=== PATIENT | male | born 1950 | race Caucasian/White ===

== ENCOUNTER 2019-04-01 04:58 | Inpatient (IN) | payer MEDICARE ==
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
[2019-04-01 06:47] VITALS: BMI 27.6
[2019-04-01] MEDS ORDERED: Nitroglycerin 0.4 MG TAB (25 Tab Bottle) PO PRN (06:48)
[2019-04-01 07:11] LABS: Cardiac Risk 2.4 (Less than 4.5)
[2019-04-01 07:15] LABS: Troponin I 0.166 ng/mL (< 0.028)
[2019-04-01] MEDS ORDERED: Pantoprazole 40 MG VIAL IVP SCH (07:45)
[2019-04-01] MEDS ORDERED: hydrALAZINE 20 MG/ML VIAL SLOW IVP PRN (07:52)
[2019-04-01] MEDS ORDERED: HYDROcodone/Acetaminophen 5/325 mg Tablet PO PRN (08:41)
[2019-04-01] MEDS ORDERED: PREDNISONE 20 MG PO SCH (09:00)
[2019-04-01] MEDS ORDERED: Triamcinolone 0.1% Cream 15 GM TUBE TOP SCH (09:00)
[2019-04-01] MEDS ORDERED: Amlodipine 5 MG TAB PO SCH (09:00)
[2019-04-01] MEDS: predniSONE 20 MG TAB PO SCH (09:36)
[2019-04-01] MEDS: Carvedilol 25 MG TAB PO SCH ×2 (09:37→20:28)
[2019-04-01] MEDS: Pantoprazole 40 MG VIAL IVP SCH (09:37)
[2019-04-01 09:56] LABS: Troponin I 0.325 ng/mL (< 0.028)
[2019-04-01 12:35] LABS: Bilirubin Negative (Negative); Blood, Urine Negative (Negative); Clarity Clear (Clear); Glucose, Urine (Dipstick) Normal (Negative); Leukocyte Negative Leu/uL (Negative); Nitrite Negative (Negative); Protein, Urine (Dipstick) Negative (Neg-Trace); Urobilinogen Normal mg/dL (Less than 2)
[2019-04-01] MEDS ORDERED: Ondansetron PF 4 MG/2 ML Vial IVP PRN (12:39)
[2019-04-01] MEDS ORDERED: Ondansetron ODT 4 MG TAB PO PRN (12:39)
[2019-04-01] MEDS ORDERED: Calcium Carbonate 500 MG ChewTAB PO PRN (12:39)
[2019-04-01] MEDS ORDERED: Fentanyl 100 MCG/2 ML VIAL ONE (13:59)
[2019-04-01] MEDS ORDERED: Midazolam HCl 2 mg/2 ml Vial ONE (13:59)
[2019-04-01] MEDS ORDERED: Iopamidol 370 76% 100 ML VIAL ONE (13:59)
[2019-04-01] MEDS ORDERED: TICAGRELOR 90 MG TABLET ONE (14:22)
[2019-04-01] MEDS ORDERED: Heparin 10,000 UNITS/1 ML VIAL ONE (14:22)
[2019-04-01] MEDS ORDERED: Morphine 2 MG/ML SYRINGE SLOW IVP PRN (14:36)
--- NOTE | 2019-04-01 16:00 | CON ---
DATE OF CONSULTATION: 04/01/2019 REASON FOR CONSULTATION: Non-STEMI. HISTORY OF PRESENT ILLNESS: Mr. Bobo is a pleasant 68-year-old white gentleman, who comes to the hospital for heartburn. He has been having a lot of heartburn lately, actually saw a instrumental musician recently, had an endoscopy, was found to have gastric ulcers. He has been on PPIs for this. However, he had an episode of epigastric pain yesterday that did not alleviate with PPI or with any other methods like Tums and the pain radiated to the left arm, so he decided to come in for evaluation. His troponin is in the indeterminate range on my evaluation, however, his symptoms are very concerning for angina, so Cardiology has been consulted. Currently, he is not having any more chest pain or chest burning. PAST MEDICAL HISTORY: 1. History of gastric ulcer. 2. Rash of unknown etiologies, followed by Dermatology. 3. Osteoarthritis. 4. Hypertension. 5. Lower extremity edema. SURGICAL HISTORY: 1. Left hip replacement. 2. Left knee replacement. 3. Penile implant. FAMILY HISTORY: Father with heart failure. SOCIAL HISTORY: Drinks about 3 to 4 beers a day. No tobacco or drugs. REVIEW OF SYSTEMS: A 12-point review of systems was done and was all negative unless stated in the history of present illness. PHYSICAL EXAMINATION: VITAL SIGNS: Temperature 98.7, pulse 68, respiratory rate 16, satting 98% on room air, and blood pressure 142/67. GENERAL: Awake, alert, and oriented x3, in no distress. HEENT: Normocephalic and atraumatic. NECK: Supple. LUNGS: Clear. CARDIOVASCULAR: S1 and S2. No S3 or S4. No murmurs. ABDOMEN: Soft. Positive bowel sounds. EXTREMITIES: No edema. SKIN: Warm and dry. LABORATORY DATA: Laboratory work was reviewed. Chemistry with a troponin of 0.116 and then 0.32. Cholesterol of 117, triglycerides of 67, LDL of 55, and HDL of 49. EKG was reviewed, shows a new left bundle-branch block. ASSESSMENT AND PLAN: 1. Sue-SD-odergbinc myocardial infarction. 2. New onset left bundle-branch block. 3. Gastric ulcers. PLAN: We spoke about further risk stratification with a heart catheterization. We spoke about the risks and benefits of the procedure. Risks included, but not limited to stroke, FL, , bleeding, need for blood transfusion, limb loss, organ loss, need for emergent bypass surgery. The patient verbalized understanding of this and agrees to proceed. Further recommendations per results of coronary angiogram. Job ID: [id number]
[2019-04-01] MEDS: TICAGRELOR 90 MG TABLET PO SCH (20:28)
[2019-04-01] MEDS: Triamcinolone 0.1% Cream 15 GM TUBE TOP SCH (20:33)
[2019-04-01] MEDS ORDERED: Atorvastatin Calcium 40 MG TAB PO SCH ×2 (21:00)
[2019-04-02 05:40] LABS: ALT (SGPT) 17 U/L (8-55); AST (SGOT) 15 U/L (5-34); Albumin 3.1 g/dL (3.4-4.8); Alkaline Phosphatase 45 U/L (40-110); Anion Gap 10 mmol/L (10-20); BUN (Urea Nitrogen) 11 mg/dL (8.4-25.7); Bilirubin, Total 0.3 mg/dL (0.2-1.2); Calc. Creatinine Clearance 113 mL/min (70-130); Calcium 8.3 mg/dL (7.8-10.44); Carbon Dioxide 29 mmol/L (23-31); Chloride 95 mmol/L (98-107); Estimated GFR-MDRD Greater than 90; Globulin 1.9 g/dL (2.4-3.5); Glucose 95 mg/dL (80-115); Potassium 3.8 mmol/L (3.5-5.1); Sodium 130 mmol/L (136-145)
--- NOTE | 2019-04-02 06:02 | PDOC.FM ---
- Subjective Subjective: Feeling well today. Expresses he would like to go home today. Denies chest pain , shortness of breath. Does report some right groin pain at cath site. Otherwise no complaints. - Objective MAR Reviewed: Yes Vital Signs & Weight: Vital Signs (12 hours) Temp Pulse Resp BP Pulse Ox 04/02/19 03:01 98.6 F 70 18 121/65 97 04/01/19 19:30 98.0 F 71 16 141/74 H 98 Weight Weight 82.463 kg I&O: 03/31/19 04/01/19 04/02/19 06:59 06:59 06:59 Intake Total 737 Output Total 775 Balance -38 Result Diagrams: 04/02/19 04:42 Phys Exam - Physical Examination Constitutional: NAD HEENT: moist MMs Neck: supple Respiratory: no wheezing, clear to auscultation bilateral Cardiovascular: RRR, no significant murmur Gastrointestinal: soft, non-tender Musculoskeletal: no edema right groin tenderness over cath site. No redness, edema or eccymosis Neurological: moves all 4 limbs Psychiatric: normal affect, A&O x 3 Skin: no rash, normal turgor Dx/Plan - Plan Plan: NSTEMI s/p stent x1 - On admission: New LBBB. Positive trops. - Cards following, Cath yesterday with stent placement in RCA - Echo 04/01: EF 60-65%, grade I diastolic dysfun. Inf hypokinesis. Septal "bounce" c/w LBBB - Continue High intensity statin, Coreg, RAJESH-I, and Brilinta. HFpEF - Echo 04/02 GERD/Hx of Peptic Ulcer - EGD by Dr Ba 2 wks ago with 2 peptic ulcers. - Continue Protonix Hyponatremia - Beer potomania vs hypervolemia - Improved after IV lasix yesterday, drinks 3-4 beers per day - Up to 130 from 125, continue to monitor Alcohol Use - ASE protocol, drinks 3-4 beers a day CAD - See above HTN - Hold Lisinopril, Amlodipine - Continue carvedilol, Lasix Rash - Continue steroids DVT ppx: SCDs Code Status: Full Addendum - Attending - Attending Attestation Date/Time: 04/02/19 1009 I personally evaluated the patient and discussed the management with Dr. Dick. I agree with the History, Examination, Assessment and Plan documented above with any addition or exceptions noted below. Patient doing well. No further chest pain. Had cath with BMS placed yesterday. Now on OAT. Awaiting further cardiology recs but possible discharge if clearance from them.
[2019-04-02] MEDS ORDERED: Aspirin Chewable 81 MG TAB PO SCH (09:00)
[2019-04-02] MEDS ORDERED: Lisinopril 5 MG TAB PO SCH (09:00)
[2019-04-02] MEDS: TICAGRELOR 90 MG TABLET PO SCH (09:50)
[2019-04-02] MEDS: predniSONE 20 MG TAB PO SCH (09:50)
[2019-04-02] MEDS: Carvedilol 25 MG TAB PO SCH (09:50)
[2019-04-02] MEDS: Pantoprazole 40 MG VIAL IVP SCH (09:51)
[2019-04-02] MEDS: Triamcinolone 0.1% Cream 15 GM TUBE TOP SCH (09:54)
[2019-04-02 16:44] VITALS: TEMP 98.6
--- NOTE | 2019-04-02 19:01 | PDOC.CPN ---
- Subjective Date: 04/02/19 Time: 18:57 Interval history: He is doing very well. No more chest pain. - Review of Systems General: denies: fever/chills, weight/appetite/sleep changes, night sweats, fatigue Respiratory: denies: cough, congestion, shortness of breath, exercise intolerance Cardiovascular: denies: chest pain, palpitation, edema, paroxysmal nocturnal dyspnea, orthopnea Gastrointestinal: denies: nausea, vomiting, diarrhea, constipation, abd pain, GI bleeding Musculoskeletal: denies: pain, tenderness, stiffness, swelling, arthritis/ arthralgias Neurological: denies: numbness, syncope, seizure, weakness - Objective Allergies/Adverse Reactions: Allergies Allergy/AdvReac Type Severity Reaction Status Date / Time No Known Allergies Allergy Verified 04/01/19 07:56 Vital Signs & Weight: Vital Signs Temp Pulse Pulse Resp BP BP BP 04/02/19 15:35 98.6 F 74 16 04/02/19 12:05 04/02/19 11:05 04/02/19 10:08 78 106/70 65/43 L 90/55 L 04/02/19 09:50 75 04/02/19 07:50 98.1 F 75 16 BP Pulse Ox Pulse Ox 04/02/19 15:35 133/69 99 04/02/19 12:05 100/68 04/02/19 11:05 70/43 L 04/02/19 10:08 98 04/02/19 09:50 04/02/19 07:50 109/56 L 99 Weight 181 lb 12.8 oz - Physical Exam General: alert & oriented x3 HEENT: mucus membranes moist Neck: supple neck Cardiac: regular rate and rhythm Lungs: clear to auscultation Neuro: grossly intact Abdomen: active bowel sounds Extremities: no edema Skin: clear Musculoskeletal: no pain - Labs Result Diagrams: 04/02/19 04:42 Troponin/CKMB Troponin I 0.325 ng/mL (< 0.028) H* 04/01/19 09:21 - Telemetry Sinus rhythms and dysrhythmias: sinus rhythm - Assessment/Plan Assessment/Plan: 1. NSTEMI 2. LBBB 3. Gastric ulcers. PLAN: - S/P BMS to RCA. Doing well. - May discharge home. - Follow up in 4 weeks. - Brilinta and aspirin for a month and then aspirin and plavix.
[2019-04-02 20:00] VITALS: BP 111/64
[2019-04-02] MEDS ORDERED: Atorvastatin Calcium 40 MG TAB PO SCH (21:00)
--- NOTE | 2019-04-05 00:09 | EKG ---
Test Reason : ON ARRIVAL Blood Pressure : / mmHG Vent. Rate : 070 BPM Atrial Rate : 070 BPM P-R Int : 178 ms QRS Dur : 140 ms QT Int : 444 ms P-R-T Axes : 045 -01 068 degrees QTc Int : 479 ms Normal sinus rhythm Left bundle branch block Abnormal ECG No previous ECGs available Confirmed by Polly GRECO ([id number]) on 04/05/2019 12:08:45 AM Referred By: PRITI Confirmed By:Polly GRECO
--- NOTE | 2019-04-05 00:12 | EKG ---
Test Reason : Blood Pressure : / mmHG Vent. Rate : 072 BPM Atrial Rate : 072 BPM P-R Int : 164 ms QRS Dur : 136 ms QT Int : 442 ms P-R-T Axes : 058 009 103 degrees QTc Int : 483 ms Normal sinus rhythm Left bundle branch block Abnormal ECG No previous ECGs available Confirmed by Polly GRECO ([id number]) on 04/05/2019 12:12:34 AM Referred By: CARRIE Confirmed By:Polly GRECO
--- NOTE | 2019-04-05 11:06 | DIS ---
DATE OF ADMISSION: 04/01/2019 DATE OF DISCHARGE: 04/02/2019 RESIDENT: Tammy Dick, PGY-2. ADMITTING ATTENDING: Mohsen Peña MD DISCHARGE ATTENDING: Mohsen Peña MD CONSULT: Cardiology. PROCEDURES: 1. Chest x-ray on 04/01/2019, stable chronic changes. No pneumonia, edema, or pleural effusion. 2. petroleum refinery laborer, severe mid RCA disease, status post PCI to mid RCA with 2.5 x 16 mm bare metal stent with good results. Severe D1 and D2 ostial lesions, very small 1 mm vessels. 3. Echocardiogram on 04/01/2019, EF 60% to 65%. Grade 1/3 diastolic dysfunction. Inferior hypokinesis. Septal "bounce" consistent with left bundle branch block. Mild mitral and tricuspid regurgitation. Aortic valve sclerosis, but opens well. PRIMARY DIAGNOSES: 1. [id number] myocardial infarction, status post stent x1. 2. Heart failure with preserved ejection fraction. SECONDARY DIAGNOSES: 1. Gastroesophageal reflux disease. 2. History of peptic ulcer. 3. Hyponatremia. 4. Alcohol abuse. 5. Coronary artery disease. 6. Hypertension. 7. Rash. DISCHARGE MEDICATIONS: 1. Aspirin 81 mg daily. 2. Atorvastatin 80 mg at bedtime. 3. Carvedilol 25 mg b.i.d. 4. [place] 5/325 mg q.6 hours p.r.n. 5. Lisinopril 5 mg daily. 6. Prednisone 20 mg daily. 7. Brilinta 90 mg b.i.d. 8. Triamcinolone cream topical b.i.d. 9. Omeprazole 20 mg daily. HISTORY OF PRESENT ILLNESS/HOSPITAL COURSE: Mr. Rivera is a 68-year-old male with past medical history of hypertension, stomach ulcer, who presented to the ED with chest pain that had been going on for about 1 week and initially thought it was due to acid reflux because it did alleviate with Tums; however, he woke in the middle of the night, took Tums and the pain began to radiate down his left arm. He was brought into the emergency department at [facility]. His initial troponin was negative. EKG revealed left bundle branch block with no prior EKG for comparison, this is thought to be new. Denied any associated symptoms of nausea, vomiting, diaphoresis. Has never been seen by Cardiology. He was diagnosed with a stomach ulcer about 2 weeks prior to admission. He had EGD with Dr. Lipscomb and was started on omeprazole daily. He also recently broke out a rash and saw an Candy Vendor who prescribed prednisone and stopped the patient's lisinopril and amlodipine. In the ER, he was given therapeutic Lovenox, morphine, and Protonix with improvement in his pain. Initial labs noted for hemoglobin 11.1 and sodium 125. BNP 163.1. Initial troponin 0, 0.166, 0.325. His cholesterol panel was fairly normal. In regard to his hyponatremia, urine studies were obtained, it was likely due to hypervolemia. He was given Lasix in the ED and on the day of discharge, sodium improved to 130. DISPOSITION: Stable. DISCHARGE INSTRUCTIONS: 1. Location: Home. 2. Diet: Heart healthy. 3. Activity: Cardiopulmonary restrictions. 4. Follow up with Dr. Bragg within 1 month and PCP within 7 days. Job ID: [id number] [facility]
--- NOTE | 2019-04-05 22:06 | PQF ---
ALTAGRACIA HIDALGO JASON MD [id number] [facility]-243 [id number] CLINICAL DOCUMENTATION CLARIFICATION FORM: POST DISCHARGE Addendum to original discharge summary date: ____ Late entry note date: 04/08/2019 DATE:04/05/2019 ATTN:REJI FIGUEROA MD Please exercise your independent, professional judgment in responding to the clarification form. Clinical indicators are provided on the bottom of this form for your review Please check appropriate box(s): [ ] Acute diastolic heart failure [ ] Acute on chronic diastolic heart failure [ ] Chronic diastolic heart failure [ ] Other diagnosis [ X ] Unable to determine if acute or chronic In addition, please specify: Present on Admission (POA): [X ] Yes [ ] No [ ] Unable to determine For continuity of documentation, please document condition throughout progress notes and discharge summary. Thank You. CLINICAL INDICATORS - SIGNS / SYMPTOMS / LABS Pitting edema b/l LE-Documented in family medicine H&P on 04/01 by Armando Valadez DO [id number] in family medicine H&P on 04/01 by Armando Valadez DO LBBB-Documented in family medicine H&P on 04/01 by Armando Valadez DO Echocardiogram on 04/01/2019 EF 60% to 65%. Grade 1/3 diastolic dysfunction- Documented in discharge summary on 04/02 by Kapil Munoz MD Non ST elevation myocardial infarction, status post stent x 1-Documented in discharge summary on 04/02 by Kapil Munoz MD Heart failure with preserved ejection fraction-Documented in discharge summary on 04/02 by Kapil Munoz MD RISKS: HTN-Documented in family medicine H&P on 04/01 by Armando Valadez DO CAD-Documented in discharge summary on 04/02 by Kapil Munoz MD Non ST elevation myocardial infarction, status post stent x 1-Documented in discharge summary on 04/02 by Kapil uMnoz MD TREATMENTS: IV Lasix -Documented in family medicine PN on 04/02 by Kapil Munoz MD Continue carvedilol, Lasix-Documented in family medicine PN on 04/02 by Kapil Munoz MD 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 All Rights Reserved [email or web address]
== END 2019-04-02 18:20 | disposition home or self-care (01) | DRG 249 ==
LOC: ERS 04:58 → OBSVTOIN 05:18 → 2SW 05:18
PROVIDERS: ADMIT Emergency Medicine; ATTEND Emergency Medicine
PROC: 4A023N7 Measurement of Cardiac Sampling and Pressure, Left Heart, Percutaneous Approach (ICD-10-PCS; principal; 2019-04-01)
PROC: 02703DZ Dilation of Coronary Artery, One Artery with Intraluminal Device, Percutaneous Approach (ICD-10-PCS; 2019-04-01)
PROC: B2111ZZ Fluoroscopy of Multiple Coronary Arteries using Low Osmolar Contrast (ICD-10-PCS; 2019-04-01)
DX: I21.4 Non-ST elevation (NSTEMI) myocardial infarction (principal); E87.1 Hypo-osmolality and hyponatremia; I50.30 Unspecified diastolic (congestive) heart failure; I44.7 Left bundle-branch block, unspecified; K21.9 Gastro-esophageal reflux disease without esophagitis; K25.9 Gastric ulcer, unspecified as acute or chronic, without hemorrhage or perforation; R60.0 Localized edema; R21 Rash and other nonspecific skin eruption; D64.9 Anemia, unspecified; Z96.642 Presence of left artificial hip joint; Z96.652 Presence of left artificial knee joint; I25.10 Atherosclerotic heart disease of native coronary artery without angina pectoris; I11.0 Hypertensive heart disease with heart failure; Z82.49 Family history of ischemic heart disease and other diseases of the circulatory system; Z72.89 Other problems related to lifestyle
CPT/HCPCS: 36415; 80053; 80061; 81003; 82533; 83930; 83935; 84300; 85347; 92928; 93005; 93010; 93306; 93454; 93798; 99152; 99285; C1760; C1769; C1876; C1887; C9113; J1644; J2250; J3010; J7512; Q9967

== ENCOUNTER 2019-04-08 17:00 | Inpatient (IN) | payer MEDICARE ==
[2019-04-08] MEDS ORDERED: Acetaminophen 325 MG TAB PO PRN (18:32)
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
[2019-04-08] MEDS ORDERED: Morphine 4 MG/ML VIAL ONE (18:56)
[2019-04-08] MEDS ORDERED: Morphine 4 MG/ML VIAL SLOW IVP PRN (18:57)
[2019-04-08 19:10] LABS: Troponin I 0.035 ng/mL (< 0.028)
[2019-04-08 19:15] LABS: Hemoglobin 7.2 g/dL (14.0-18.0)
--- NOTE | 2019-04-08 19:55 | CON ---
DATE OF CONSULTATION: 04/08/2019 REASON FOR CONSULTATION: Pseudoaneurysm and chest pain. HISTORY OF PRESENT ILLNESS: Mr. Rivera is a very pleasant 68-year-old white gentleman, very well known to myself, who comes to the hospital for anemia, new onset, and pseudoaneurysm. He had a heart catheterization last week secondary to [id number] [place]. He presented with symptoms concerning for angina, so he was taken to the catheterization lab. Right femoral access was obtained and he underwent stent placement to the right coronary artery with a bare-metal stent as he had a history of gastric ulcer in the past. He went home. Manual pressure was held in the right femoral arteriotomy site and everything was well. He came in today as he had a followup with GI and was found to have a low hemoglobin in the 7 range and he was having some dull left-sided chest pain, so he was referred to the ER. He went to the [facility] and he was found to have a pseudoaneurysm and low hemoglobin and was transferred over for further evaluation and care. Currently, he denies any chest pain, tightness, or pressure. No shortness of breath. His right groin is very tender to palpation and he has some edema in the right leg. PAST MEDICAL HISTORY: 1. Gastric ulcer. 2. Coronary artery disease, status post bare-metal stent to the RCA. 3. Osteoarthritis. 4. Rash of unknown etiology is followed by Dermatology. 5. Hypertension. 6. Lower extremity edema. PAST SURGICAL HISTORY: 1. Left hip replacement. 2. Left knee replacement. 3. Penile implant. 4. Left heart catheterization with stenting to the right with a bare-metal stent. FAMILY HISTORY: Father with heart failure. SOCIAL HISTORY: 3 to 4 beers a day. No tobacco or drugs. OUTPATIENT MEDICATIONS: 1. Prednisone. 2. Triamcinolone. 3. Brilinta 90 mg b.i.d. 4. Omeprazole 20 mg a day. 5. Lisinopril 5 mg a day. 6. Tama p.r.n. 7. Carvedilol 25 mg p.o. b.i.d. 8. Atorvastatin 80 mg at bedtime. 9. Aspirin 81 a day. ALLERGIES: NO KNOWN DRUG ALLERGIES. REVIEW OF SYSTEMS: A 12-point review of systems was done and was all negative unless stated in the history of present illness. PHYSICAL EXAMINATION: VITAL SIGNS: Temperature 98.0, pulse 67, respiratory rate 18, saturating 99% on room air, blood pressure 155/82. GENERAL: Awake, alert, and oriented x3. No distress. HEENT: Normocephalic and atraumatic. NECK: Supple. LUNGS: Clear. CARDIOVASCULAR: S1 and S2. No S3 or S4. No murmurs. ABDOMEN: Soft. Positive bowel sounds. EXTREMITIES: No edema. SKIN: Warm and dry. Right groin has a small amount of ecchymosis and bruising. There is a palpable mass, minimally pulsatile, but tender to palpation. LABORATORY AND DIAGNOSTIC DATA: Ultrasound at the outside facility showed pseudoaneurysm. Most recent blood work is not available to me at this time. However, his hemoglobin on discharge was at around 11 and apparently it has been down to 7. Echocardiogram before discharge last week showed an EF of 60% to 65% with grade 1 diastolic dysfunction and inferior hypokinesis. ASSESSMENT: 1. Pseudoaneurysm. 2. Anemia, likely blood loss. 3. Chest pain. PLAN: 1. EKG shows no evidence of ischemia currently. We will trend troponins, make sure these are not uptrending. 2. We attempted ultrasound-guided closure of the pseudoaneurysm. However, it was quite large and we were unable to occlude the flow with ultrasound-guided manual pressure. At this point, the best option would be surgical consultation for surgical excision of the pseudoaneurysm. We will consult CT and Vascular Surgery for this. Hopefully, this will be done tomorrow. 3. We will continue to monitor anemia. If it drops any further, we will give blood transfusions. 4. Continue to trend troponins and repeat EKG. Thank you for letting us to participate in the care of your patient. We will follow. Job ID: [id number]
[2019-04-08] MEDS ORDERED: predniSONE 20 MG TAB PO SCH (20:15)
[2019-04-08] MEDS: Atorvastatin Calcium 40 MG TAB PO SCH ×2 (20:46→20:50)
[2019-04-08] MEDS: Carvedilol 25 MG TAB PO SCH (20:48)
[2019-04-08 20:52] VITALS: BMI 26.9
[2019-04-08] MEDS ORDERED: Triamcinolone 0.1% Cream 15 GM TUBE TOP SCH (21:00)
[2019-04-08 21:47] LABS: Troponin I 0.072 ng/mL (< 0.028)
[2019-04-08] MEDS: HYDROcodone/Acetaminophen 5/325 mg Tablet PO PRN (21:54)
[2019-04-09 01:00] LABS: Troponin I 0.097 ng/mL (< 0.028)
[2019-04-09 05:39] LABS: Anion Gap 11 mmol/L (10-20); BUN (Urea Nitrogen) 11 mg/dL (8.4-25.7); Calc. Creatinine Clearance 124 mL/min (70-130); Calcium 7.8 mg/dL (7.8-10.44); Carbon Dioxide 24 mmol/L (23-31); Chloride 99 mmol/L (98-107); Estimated GFR-MDRD Greater than 90; Glucose 111 mg/dL (80-115); Potassium 4.5 mmol/L (3.5-5.1); Sodium 129 mmol/L (136-145)
[2019-04-09 05:40] LABS: Band 1 % (5-11); Hemoglobin 8.9 g/dL (14.0-18.0); Lymphocytes 9 % (21-51); MDiff Complete? YES; Mean Corpuscular Hemoglobin 31.2 pg (27.0-31.0); Mean Corpuscular Volume 94.8 fL (78.0-98.0); Mean Platelet Volume 6.1 fL (7.4-10.4); Monocytes 3 % (0-10); Neutrophil 87 % (42-75); Platelet Count 255 thou/uL (130-400); Platelet Morphology Comment Appears Adequate; RBC Distribution Width 13.6 % (11.5-14.5); Red Blood Cell (RBC) Count 2.85 mill/uL (4.70-6.10); White Blood Cell (WBC) Count 6.7 thou/uL (4.8-10.8)
[2019-04-09 05:46] LABS: Troponin I 0.085 ng/mL (< 0.028)
[2019-04-09] MEDS: Carvedilol 25 MG TAB PO SCH ×2 (06:01→20:21)
[2019-04-09] MEDS: HYDROcodone/Acetaminophen 5/325 mg Tablet PO PRN ×2 (06:01→20:26)
--- NOTE | 2019-04-09 06:54 | PDOC.FM ---
- Subjective Subjective: Chest pain overnight resolved with transfusions. Denies shortness of breath, weakness, dizziness. Continues to have right groin pain, unable to move right leg very much. Reports CV surg came by this morning and are planning for surgery around 11am. - Objective MAR Reviewed: Yes Vital Signs & Weight: Vital Signs (12 hours) Temp Pulse Pulse Resp BP BP Pulse Ox 04/09/19 04:50 98.2 F 67 20 138/75 98 04/09/19 02:46 98.3 F 67 20 121/71 98 04/09/19 02:31 98.4 F 66 20 132/69 98 04/09/19 02:00 98.1 F 71 20 118/68 97 04/08/19 23:50 98.2 F 65 20 105/63 97 04/08/19 23:30 97.9 F 67 20 100/58 L 98 04/08/19 20:00 97.6 F 70 20 130/72 99 Weight Weight 80.286 kg I&O: 04/07/19 04/08/19 04/09/19 06:59 06:59 06:59 Intake Total 1060 Output Total 1150 Balance -90 Result Diagrams: 04/09/19 04:39 04/09/19 04:39 Phys Exam - Physical Examination Constitutional: NAD HEENT: moist MMs Neck: supple Respiratory: no wheezing, clear to auscultation bilateral Cardiovascular: RRR, no significant murmur Gastrointestinal: soft, non-tender Musculoskeletal: no edema Neurological: moves all 4 limbs Psychiatric: normal affect, A&O x 3 Deviation from normal: Extensive right posterior leg ecchymosis to popliteal fossa Dx/Plan - Plan Plan: R Femoral Pseudoaneurysm s/p heart cath w/ RCA stent placement - Dr. Bragg and CV surgery consulted. Currently NPO for surgery. - s/p 2U pRBCs Acute blood loss anemia 2/2 pseudoaneurysm - s/p 2U pRBCs - Hgb this AM 8.9 Elevated Troponin - likely result of recent NSTEMI and stent placement. Trops trended down CAD s/p stent - Continue Brilinta Code Status: Full Addendum - Attending - Attending Attestation Date/Time: 04/09/19 1024 I personally evaluated the patient and discussed the management with Dr. Dick I agree with the History, Examination, Assessment and Plan documented above with any addition or exceptions noted below. Awaiting surgical correction of pseudoaneurysm. H&H improved with 2 units but may need additional transfusion post operatively. Goal hemoglobin >9 due to CAD. LOS pending CVS recommendations.
[2019-04-09] MEDS ORDERED: TICAGRELOR 90 MG TABLET PO SCH ×2 (07:45→09:00)
[2019-04-09] MEDS: predniSONE 20 MG TAB PO SCH (08:28)
[2019-04-09] MEDS: Lisinopril 5 MG TAB PO SCH (08:28)
[2019-04-09] MEDS ORDERED: Protamine Sulfate 50 MG/5 ML VIAL ONE (09:27)
[2019-04-09] MEDS ORDERED: Heparin 5,000 UNITS/ML VIAL ONE (09:27)
[2019-04-09] MEDS ORDERED: Fentanyl 100 MCG/2 ML VIAL ONE (09:37)
[2019-04-09] MEDS ORDERED: Ondansetron PF 4 MG/2 ML Vial ONE (10:16)
[2019-04-09] MEDS ORDERED: PROPOFOL 200 MG/20 ML VIAL ONE (10:16)
[2019-04-09] MEDS ORDERED: Dexamethasone 20 MG/5 ML VIAL ONE (10:16)
[2019-04-09] MEDS ORDERED: Glycopyrrolate 0.2 MG/ML 5 ML SYRINGE ONE (10:16)
[2019-04-09] MEDS ORDERED: Ketorolac Tromethamine 30 MG/ML VIAL ONE (10:16)
[2019-04-09] MEDS ORDERED: Rocuronium Bromide 10 MG/ML (10ML VIAL) ONE (10:16)
[2019-04-09] MEDS ORDERED: Lidocaine 1% PF 5 ML VIAL ONE (10:16)
[2019-04-09] MEDS ORDERED: Heparin 10,000 UNITS/1 ML VIAL ONE (12:13)
[2019-04-09] MEDS ORDERED: Ondansetron HCl/PF 4 MG/2 ML Vial IVP PRN (12:28)
--- NOTE | 2019-04-09 13:48 | OP ---
DATE OF PROCEDURE: 04/09/2019 PROCEDURE PERFORMED: Repair of right femoral pseudoaneurysm. PREOPERATIVE DIAGNOSIS: Right femoral pseudoaneurysm, status post cardiac catheterization with percutaneous coronary intervention. POSTOPERATIVE DIAGNOSIS: Right femoral pseudoaneurysm, status post cardiac catheterization with percutaneous coronary intervention. ANESTHESIA: General endotracheal anesthesia. INDICATIONS: The patient is a 68-year-old man, who about a week ago underwent bare-metal stenting of his right coronary artery following a non-ST elevation myocardial infarction and was placed on Brilinta for antiplatelet therapy. He presented yesterday with vague chest pain and anemia. He was found to have significant bruising in his groin with a vague pulsatile mass that was consistent with a pseudoaneurysm on ultrasonography. Attempts at ultrasonographically directed compressions were unsuccessful in sealing the pseudoaneurysm and he is now taken to the operating room after having been transfused for repair of his femoral artery. FINDINGS: A clot tracking down to the knee were little bit beyond a discrete clean puncture hole in the anterior surface. The distal common femoral artery was repaired with a pursestring suture. NARRATIVE REPORT: After informed consent was obtained, the patient was taken to the operating room and placed in the supine position on the operating table. After the induction of general anesthesia, his abdomen and right groin and thigh were prepped and draped in sterile fashion. An oblique incision was made about a fingerbreadth below and parallel to the right groin crease. It was carried through the subcutaneous tissue with the electrocautery. The axis of dissection was shifted to that of the vasculature over the palpable pulse distally in the wound. Clot and inflammatory tissue were encountered. The superficial femoral artery was identified and in the course of proximal dissection, bleeding from the puncture site was encountered when the pseudoaneurysm cavity was entered. This was controlled with direct pressure and the common femoral artery and its bifurcation were dissected out. The superficial femoral artery and then the common femoral artery were looped with vessel loops with those vessels controlled in that manner. Pressure on the puncture site was released to allow for completion of the dissection to allow for clamping of the common femoral on either side of the puncture site. A 5-0 Prolene pursestring suture was used to control that and the vascular controls were released. There was no additional bleeding noted, although one side branch from the common femoral required ligation. Clot was evacuated from the tract, which was then copiously irrigated. A 24-Marshallese bulb suction drain was placed into the tract that went down to about the knee. It was brought out through a separate incision anterolaterally and secured to the skin with suture. The wound was then closed in deep and superficial layers of 2-0 Vicryl and then closed with a 4-0 Vicryl subcuticular suture and Dermabond. The wound was dressed. The patient was awakened and extubated in the operating room and taken to the recovery area in stable condition. Job ID: [id number]
[2019-04-09] MEDS ORDERED: HYDROcodone/Acetaminophen 5/325 mg Tablet PO PRN (14:17)
[2019-04-09] MEDS ORDERED: Morphine 2 MG/ML SYRINGE SLOW IVP PRN (15:46)
--- NOTE | 2019-04-09 15:55 | PDOC.CPN ---
- Subjective Date: 04/09/19 Time: 15:53 Interval history: He had excision of his pseudoaneurysm by Dr. Brock. His chest pain improved with blood transfusion. Only complaint is pain around surgical site. Drain in place. - Review of Systems General: denies: fever/chills, weight/appetite/sleep changes, night sweats, fatigue Respiratory: denies: cough, congestion, shortness of breath, exercise intolerance Cardiovascular: denies: chest pain, palpitation, edema, paroxysmal nocturnal dyspnea, orthopnea Gastrointestinal: denies: nausea, vomiting, diarrhea, constipation, abd pain, GI bleeding Musculoskeletal: reports: pain. denies: tenderness, stiffness, swelling, arthritis/arthralgias Neurological: denies: numbness, syncope, seizure, weakness - Objective Allergies/Adverse Reactions: Allergies Allergy/AdvReac Type Severity Reaction Status Date / Time lactase [From Dairy Aid] Allergy Verified 04/08/19 22:12 Visit Medications: Current Medications Acetaminophen (Tylenol) 650 mg PO Q4H PRN PRN Reason: Headache/Fever/Mild Pain (1-3) Hydrocodone Bitart/Acetaminophen ([place] 5/325) 1 tab PO Q6HR PRN PRN Reason: Moderate Pain (4-6) Last Admin: 04/09/19 06:01 Dose: 1 tab Hydrocodone Bitart/Acetaminophen ([place] 5/325) 2 tab PO Q4H PRN PRN Reason: Severe Pain (7-10) Atorvastatin Calcium (Lipitor) 80 mg PO HS [facility] Last Admin: 04/08/19 20:50 Dose: 80 mg Carvedilol (Coreg) 25 mg PO BID [facility] Last Admin: 04/09/19 06:01 Dose: 25 mg Lisinopril (Zestril) 5 mg PO DAILY [facility] Last Admin: 04/09/19 08:28 Dose: 5 mg Morphine Sulfate (Morphine) 2 mg SLOW IVP Q4H PRN PRN Reason: Breakthrough Pain Pantoprazole Sodium (Protonix) 40 mg PO DAILY [facility] Last Admin: 04/09/19 08:28 Dose: 40 mg Prednisone (Prednisone) 20 mg PO DAILY [facility] Last Admin: 04/09/19 08:28 Dose: 20 mg Ticagrelor (Brilinta) 90 mg PO BID [facility] Vital Signs & Weight: Vital Signs Temp Pulse Pulse Resp BP BP BP 04/09/19 13:50 97.8 F 53 L 18 166/80 H 04/09/19 08:28 71 148/82 H 04/09/19 08:17 98.4 F 71 16 148/82 H 04/09/19 04:50 98.2 F 67 20 138/75 Pulse Ox 04/09/19 13:50 99 04/09/19 08:28 04/09/19 08:17 97 04/09/19 04:50 98 Weight 177 lb - Physical Exam General: alert & oriented x3 HEENT: mucus membranes moist Neck: supple neck Cardiac: regular rate and rhythm Lungs: clear to auscultation Neuro: grossly intact Abdomen: active bowel sounds Extremities: no edema Skin: clear Musculoskeletal: normal range of motion - Labs Result Diagrams: 04/09/19 04:39 04/09/19 04:39 Troponin/CKMB Troponin I 0.085 ng/mL (< 0.028) H 04/09/19 04:39 - Assessment/Plan Assessment/Plan: 1. Right groin pseudoaneurysm. 2. CAD, S/P PCI to RCA with BMS a week ago. 3. Blood loss anemia, s/p transfusion. 4. Hx of gastric ulcer. 5. Chronic LE edema. PLAN: - Pain control. - Continue to monitor H&H. - Brilinta stopped, continue Plavix and aspirin. - CV stable, no ACS.
[2019-04-09 18:05] LABS: #Basophils 0.1 thou/uL (0.0-0.2); #Lymphocytes 0.2 thou/uL (1.20-3.40); #Monocytes 0.2 thou/uL (0.11-0.59); #Neutrophils 11.9 thou/uL (1.40-6.50); %Basophils 0.9 % (0.0-1.0); %Eosinophils 0.2 % (0.0-10.0); %Lymphocytes 1.8 % (21.0-51.0); %Monocytes 1.5 % (0.0-10.0); %Neutrophils 95.6 % (42.0-75.0); Hemoglobin 9.2 g/dL (14.0-18.0); Mean Corpuscular HGB CONC 34.6 g/dL (32.0-36.0); Mean Corpuscular Hemoglobin 32.8 pg (27.0-31.0); Mean Corpuscular Volume 94.6 fL (78.0-98.0); Mean Platelet Volume 5.9 fL (7.4-10.4); Platelet Count 279 thou/uL (130-400); RBC Distribution Width 13.9 % (11.5-14.5); White Blood Cell (WBC) Count 12.4 thou/uL (4.8-10.8)
[2019-04-09] MEDS: Atorvastatin Calcium 40 MG TAB PO SCH (20:21)
[2019-04-09] MEDS: TICAGRELOR 90 MG TABLET PO SCH (20:21)
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
--- NOTE | 2019-04-10 06:08 | PDOC.FM ---
- Subjective Subjective: No overnight events. Eager to get home. Reports he is able to now move his leg after surgery. Pain well controlled. - Objective MAR Reviewed: Yes Vital Signs & Weight: Vital Signs (12 hours) Temp Pulse Resp BP Pulse Ox 04/09/19 23:50 75 04/09/19 20:00 98.0 F 20 L 20 133/74 97 Weight Weight 80.286 kg I&O: 04/08/19 04/09/19 04/10/19 06:59 06:59 06:59 Intake Total 1060 960 Output Total 1150 665 Balance -90 295 Result Diagrams: 04/10/19 07:09 04/10/19 07:09 Phys Exam - Physical Examination Constitutional: NAD HEENT: moist MMs Neck: supple Respiratory: no wheezing, clear to auscultation bilateral Cardiovascular: RRR, no significant murmur Gastrointestinal: soft, non-tender Musculoskeletal: no edema Neurological: moves all 4 limbs Psychiatric: normal affect, A&O x 3 Deviation from normal: right leg with ecchymosis, ARGELIA drain with serosanguineous fluid Dx/Plan - Plan Plan: R Femoral Pseudoaneurysm after heart cath s/p repair on 04/10 - Dr. Bragg and CV surgery following - Plan to discharge home today with follow up on Friday Acute blood loss anemia 2/2 pseudoaneurysm - s/p 2U pRBCs - CBC pending this AM Leukocytosis - likely stress reaction from surgery, CBC pending. Elevated Troponin - likely result of recent NSTEMI and stent placement. Trops trended down CAD s/p RCA stent placement - Continue Brilinta and ASA Code Status: Full Addendum - Attending - Attending Attestation Date/Time: 04/10/19 5081 I personally evaluated the patient and discussed the management with Dr. Dick. I agree with the History, Examination, Assessment and Plan documented above with any addition or exceptions noted below. D/c if [facility] approves.
[2019-04-10 07:25] VITALS: BP 122/74; TEMP 98.5
[2019-04-10 07:31] LABS: Hemoglobin 8.1 g/dL (14.0-18.0); Mean Corpuscular HGB CONC 34.8 g/dL (32.0-36.0); Mean Corpuscular Hemoglobin 33.1 pg (27.0-31.0); Mean Corpuscular Volume 95.1 fL (78.0-98.0); Mean Platelet Volume 6.1 fL (7.4-10.4); Platelet Count 280 thou/uL (130-400); Red Blood Cell (RBC) Count 2.45 mill/uL (4.70-6.10); White Blood Cell (WBC) Count 8.6 thou/uL (4.8-10.8)
[2019-04-10 07:47] LABS: Anion Gap 12 mmol/L (10-20); BUN (Urea Nitrogen) 19 mg/dL (8.4-25.7); Calc. Creatinine Clearance 110 mL/min (70-130); Calcium 7.7 mg/dL (7.8-10.44); Carbon Dioxide 23 mmol/L (23-31); Chloride 98 mmol/L (98-107); Estimated GFR-MDRD Greater than 90; Glucose 109 mg/dL (80-115); Potassium 4.4 mmol/L (3.5-5.1); Sodium 129 mmol/L (136-145)
[2019-04-10] MEDS: Lisinopril 5 MG TAB PO SCH (08:05)
[2019-04-10] MEDS: TICAGRELOR 90 MG TABLET PO SCH (08:05)
[2019-04-10] MEDS: HYDROcodone/Acetaminophen 5/325 mg Tablet PO PRN (08:06)
[2019-04-10] MEDS: Carvedilol 25 MG TAB PO SCH (08:07)
[2019-04-10] MEDS: predniSONE 20 MG TAB PO SCH (08:07)
--- NOTE | 2019-04-10 10:18 | PDOC.CPN ---
- Subjective Date: 04/10/19 Time: 10:17 Interval history: Doing well. No complaints - Objective Allergies/Adverse Reactions: Allergies Allergy/AdvReac Type Severity Reaction Status Date / Time lactase [From Dairy Aid] Allergy Verified 04/08/19 22:12 Visit Medications: Current Medications Acetaminophen (Tylenol) 650 mg PO Q4H PRN PRN Reason: Headache/Fever/Mild Pain (1-3) Hydrocodone Bitart/Acetaminophen (Tyler 5/325) 1 tab PO Q6HR PRN PRN Reason: Moderate Pain (4-6) Last Admin: 04/10/19 08:06 Dose: 1 tab Hydrocodone Bitart/Acetaminophen (Tyler 5/325) 2 tab PO Q4H PRN PRN Reason: Severe Pain (7-10) Atorvastatin Calcium (Lipitor) 80 mg PO HS [facility] Last Admin: 04/09/19 20:21 Dose: 80 mg Carvedilol (Coreg) 25 mg PO BID [facility] Last Admin: 04/10/19 08:07 Dose: 25 mg Lisinopril (Zestril) 5 mg PO DAILY [facility] Last Admin: 04/10/19 08:05 Dose: 5 mg Morphine Sulfate (Morphine) 2 mg SLOW IVP Q4H PRN PRN Reason: Breakthrough Pain Pantoprazole Sodium (Protonix) 40 mg PO DAILY [facility] Last Admin: 04/10/19 08:07 Dose: 40 mg Prednisone (Prednisone) 20 mg PO DAILY [facility] Last Admin: 04/10/19 08:07 Dose: 20 mg Ticagrelor (Brilinta) 90 mg PO BID [facility] Last Admin: 04/10/19 08:05 Dose: 90 mg Vital Signs & Weight: Vital Signs Temp Pulse Resp BP BP Pulse Ox 04/10/19 08:05 70 122/74 04/10/19 08:00 97 04/10/19 07:00 98.5 F 70 19 122/74 97 04/09/19 23:50 75 Weight 177 lb - Physical Exam General: alert & oriented x3 Neck: supple neck Cardiac: no murmur, regular rate, regular rhythm Lungs: normal exam, no wheezes Neuro: grossly intact Abdomen: soft, non-tender - Labs Result Diagrams: 04/10/19 07:09 04/10/19 07:09 Troponin/CKMB Troponin I 0.085 ng/mL (< 0.028) H 04/09/19 04:39 - Assessment/Plan Assessment/Plan: 1. Right groin pseudoaneurysm. 2. CAD, S/P PCI to RCA with BMS a week ago. 3. Blood loss anemia, s/p transfusion. 4. Hx of gastric ulcer. 5. Chronic LE edema. Plan 04/10 No current issues Doing well ASA, plavix, BB and statin Will need FeSO4 PLAN: 04/09 - Pain control. - Continue to monitor H&H. - Brilinta stopped, continue Plavix and aspirin. - CV stable, no ACS.
[2019-04-10 11:11] LABS: Hypersemented Neutrophil MODERATE; Lymphocytes 7 % (21-51); MDiff Complete? YES; Monocytes 2 % (0-10); Neutrophil 91 % (42-75); Platelet Morphology Comment Appears Adequate; Polychromasia SLIGHT = 2-3 cells (100X) (0-2/hpf)
--- NOTE | 2019-04-11 16:15 | DIS ---
DATE OF ADMISSION: 04/08/2019 DATE OF DISCHARGE: 04/10/2019 RESIDENT: Tammy Dick MD, PGY-2 ADMITTING ATTENDING: Nikolai Rodriguez MD DISCHARGE ATTENDING: Richmond Junior MD CONSULTS: 1. Cardiology. 2. CV Surgery. PROCEDURES: Pseudoaneurysm repair by Dr. Brock. PRIMARY DIAGNOSES: 1. Right femoral pseudoaneurysm after heart catheterization, status post repaired on 04/10. 2. Acute blood loss anemia secondary to pseudoaneurysm. SECONDARY DIAGNOSES: 1. Leukocytosis. 2. Elevated troponin. 3. Coronary artery disease status post right coronary artery stent placement. 4. Gastric ulcer. 5. Alcohol use. 6. Hypertension. DISCHARGE MEDICATIONS: 1. Tylenol 650 mg q.4 hours p.r.n. 2. Aspirin 81 mg daily. 3. Atorvastatin 80 mg at bedtime. 4. Coreg 25 mg b.i.d. 5. Coleman 5/325 one to two tablets q.6 hours p.r.n. 6. Lisinopril 5 mg daily. 7. Omeprazole 40 mg daily. 8. Brilinta 90 mg b.i.d. HISTORY OF PRESENT ILLNESS/HOSPITAL COURSE: Mr. Rivera is a 68-year-old male, past medical history of coronary artery disease, recently had a stent placed last week or a week prior to admission, who was transferred from the [facility] Emergency Department for pseudoaneurysm related to cardiac cath complications. His initial hemoglobin was 7.9. Procedure had been performed on 04/01 and had a stent placed to the RCA. He was unable to move his leg at admission due to pain and tightness. Initial hemoglobin at [facility] in [place], [place] 7.2, received 2 units of packed red blood cells and it increased 8.9, 8.1 at discharge. We discussed with the patient that due to his coronary artery disease, below 8, we would usually transfuse and if he becomes symptomatic, to return to the Emergency Department or contact his primary care doctor. Other notable labs at admission, troponin; 0.035, 0.072, 0.097, 0.085, likely related to his recent NSTEMI and cardiac stent placement. His sodium was also low at 129 to 130 on his most recent discharge. Dr. Bragg was consulted, who consulted CV Surgery, Dr. Brock. He had repair of the pseudoaneurysm on 04/10 and reported good functioning in his legs, decreased pain afterwards. There was a drain placed draining serosanguineous fluid. He was continued on Brilinta and aspirin. He will follow up with Dr. Brock in a couple days for removal of the J-tube. Regards to his chronic medical conditions, these were stable with his home medications. DISPOSITION: Stable. DISCHARGE INSTRUCTIONS: 1. Location: Home. 2. Diet: Heart healthy. 3. Activity: Cardiopulmonary restrictions. 4. Follow up with Dr. Brock on April 13 at [address] Huggins within the next week. Job ID: [id number]
== END 2019-04-10 12:57 | disposition home or self-care (01) | DRG 253 ==
LOC: T4-A 17:00
PROVIDERS: ADMIT Student in an Organized Health Care Education/Training Program; ATTEND Student in an Organized Health Care Education/Training Program
PROC: 04QK0ZZ Repair Right Femoral Artery, Open Approach (ICD-10-PCS; principal; 2019-04-09)
DX: I72.4 Aneurysm of artery of lower extremity (principal); D62 Acute posthemorrhagic anemia; D72.829 Elevated white blood cell count, unspecified; I25.10 Atherosclerotic heart disease of native coronary artery without angina pectoris; K25.9 Gastric ulcer, unspecified as acute or chronic, without hemorrhage or perforation; F10.10 Alcohol abuse, uncomplicated; K21.9 Gastro-esophageal reflux disease without esophagitis; R21 Rash and other nonspecific skin eruption; I10 Essential (primary) hypertension; M19.90 Unspecified osteoarthritis, unspecified site; Z96.642 Presence of left artificial hip joint; R79.89 Other specified abnormal findings of blood chemistry; Z95.5 Presence of coronary angioplasty implant and graft
CPT/HCPCS: 36415; 36430; 80048; 84484; 85007; 85014; 85018; 85027; 86850; 86900; 86901; 93005; 93010; J1100; J1644; J1885; J2001; J2270; J2405; J2704; J2720; J3010; J7512; P9016

== ENCOUNTER 2019-07-01 17:32 | Inpatient (IN) | payer MEDICARE ==
[~2019-07-01 17:32] MED LIST: Dexamethasone 20 MG/5 ML VIAL ONE; EPHEDRINE 25 MG/5 ML SYRINGE ONE; Glycopyrrolate 0.2 MG/ML 5 ML SYRINGE ONE; Iopamidol-370 76% 500 ML 1 ML ONE; Ketorolac Tromethamine 30 MG/ML VIAL ONE; Lidocaine 1% PF 5 ML VIAL ONE; Ondansetron PF 4 MG/2 ML Vial ONE; PHENYLEPHRINE-NS 100 MCG/ML 10 ML SYRINGE ONE; PROPOFOL 200 MG/20 ML VIAL ONE; Rocuronium Bromide 10 MG/ML (10ML VIAL) ONE; Succinylcholine Chloride 20 MG/ML 10 ml SYRINGE FS ONE
[2019-07-01] MEDS ORDERED: Fentanyl 100 MCG/2 ML VIAL ONE ×3 (18:22→20:37)
[2019-07-01 19:11] LABS: Hemoglobin 11.3 g/dL (14.0-18.0); Mean Corpuscular HGB CONC 31.8 g/dL (32.0-36.0); Mean Corpuscular Volume 87.9 fL (78.0-98.0); Mean Platelet Volume 6.6 fL (7.4-10.4); Platelet Count 257 thou/uL (130-400); RBC Distribution Width 14.1 % (11.5-14.5); Red Blood Cell (RBC) Count 4.06 mill/uL (4.70-6.10); White Blood Cell (WBC) Count 2.6 thou/uL (4.8-10.8)
[2019-07-01 19:30] LABS: Band 47 % (5-11); Lymphocytes 16 % (21-51); MDiff Complete? YES; Metamyelocyte 7 % (0-0); Monocytes 4 % (0-10); Neutrophil 26 % (42-75); Platelet Morphology Comment Appears Adequate; Polychromasia SLIGHT = 2-3 cells (100X) (0-2/hpf); Reflex for Review?? YES; Vacuoles SLIGHT
[2019-07-01 19:37] LABS: ALT (SGPT) 17 U/L (8-55); AST (SGOT) 14 U/L (5-34); Albumin 3.5 g/dL (3.4-4.8); Alkaline Phosphatase 54 U/L (40-110); Anion Gap 15 mmol/L (10-20); BUN (Urea Nitrogen) 12 mg/dL (8.4-25.7); Bilirubin, Total 0.9 mg/dL (0.2-1.2); Calc. Creatinine Clearance 0 mL/min (70-130); Calcium 8.8 mg/dL (7.8-10.44); Carbon Dioxide 22 mmol/L (23-31); Chloride 95 mmol/L (98-107); Estimated GFR-MDRD Greater than 90; Globulin 2.6 g/dL (2.4-3.5); Glucose 70 mg/dL (83-110); Lipase 4 U/L (8-78); Potassium 3.8 mmol/L (3.5-5.1); Protein, Total 6.1 g/dL (5.8-8.1); Sodium 128 mmol/L (136-145)
[2019-07-01] MEDS ORDERED: Morphine 4 MG/ML VIAL ONE (20:08)
[2019-07-01] MEDS ORDERED: metroNIDAZOLE 500 MG/100 ML BAG ONE (20:08)
--- NOTE | 2019-07-01 20:13 | CT ---
CT ABDOMEN AND PELVIS WITH IV CONTRAST: 07/01/19 HISTORY: Right lower quadrant abdominal pain. Patient states developed abdominal pain after endoscopy and colo noscopy procedure on Friday. COMPARISON: None. FINDINGS: There are small bilateral pleural effusions with patchy parenchymal densities at each lung base proba sandra attributable to atelectasis although pneumonitis cannot be entirely excluded. Free intraperitoneal gas as well as free fluid is seen in the abdomen and pelvis. There is an irregul ar fluid and air collection seen adjacent to the sigmoid colon within the central pelvis with greates t axial dimensions of 3.3 cm x 2.9 cm, this could potentially be site of perforation although the ex act site is difficult to definitely determine on this exam. Nevertheless, the findings are worrisome for perforated viscus. The liver, spleen, pancreas, bilateral adrenal glands, and kidneys demonstrate a normal CT appearance . Vascular calcifications are seen in a mildly tortuous abdominal aorta and involving the iliac arter ies. Penile implant with reservoir in the left aspect of the pelvis is seen. Multiple colonic diverticula are seen throughout the colon greatest involving the descending and sigm oid colon. Diminished attenuation is seen in the region of the ascending colon near the cecum which m ay be related to retained fecal material and it is difficult to further evaluate on this exam. Correl ation with prior colonoscopy is recommended. Radiopaque suture material is seen at the cecal apex. Left total hip prosthesis present with postsurgical changes of the left acetabulum and iliac bone. Multilevel degenerative changes are seen in the spine. There are postoperative changes in the right inguinal region. IMPRESSION: 1. Evidence of perforated viscus with free intraperitoneal gas and free fluid in the abdomen. Si te of perforation may potentially be within the region of the sigmoid colon where there is an irregu lar fluid and gas collection without defined gonzales present. 2. Small bilateral pleural effusions and patchy bibasilar parenchymal densities probably attribu table to atelectasis. Pneumonitis cannot be entirely excluded. 3. Colonic diverticulos seen diffusely throughout the colon. Low density area is seen in the reg ion of the ascending colon which is. probably attributable to retained fecal material. A discrete mas s is difficult to evaluate on this exam. Correlation with prior colonoscopy is recommended. 4. Additional findings as described above. 5. Above findings discussed with Dr. Jimenez in the Emergency Department on 07/01/19 at 1939 hours. POS: [facility]
[2019-07-01 20:27] LABS: INR-International Normal Ratio 1.2; PTT 30.7 SEC (22.9-36.1); Prothrombin Time 15.4 SEC (12.0-14.7)
[2019-07-01] MEDS ORDERED: Meropenem 1 GM in Sodium Chloride 0.9% 100 ML IVPB SCH (20:30)
[2019-07-01] MEDS ORDERED: MEROPENEM 1 GM/50 ML 1 GM in Premix Bag 1 BAG IVPB SCH (20:30)
--- NOTE | 2019-07-01 20:31 | RAD ---
PORTABLE CHEST: 07/01/19 HISTORY: Abdominal pain. COMPARISON: 06/17/19. Correlation made to CT performed prior to the chest film. Evidence of free intraperitoneal air seen under the right hemidiaphragm. This was described on CT sca n report. Lungs otherwise appear clear. Calcified granuloma in the right upper lung again noted. IMPRESSION: Intraperitoneal air as noted on CT. No acute lung process. POS: [facility]
[2019-07-01] MEDS ORDERED: Lidocaine 2% Jelly 5 ML TUBE ONE (20:38)
[2019-07-01] MEDS ORDERED: Phenylephrine 10 MG/ML VIAL ONE (21:46)
[2019-07-01] MEDS ORDERED: HYDROmorphone 0.5 MG/0.5 ML SYRINGE ONE (21:46)
[2019-07-01] MEDS ORDERED: Albumin 5% 500 ML ONE (21:47)
--- NOTE | 2019-07-01 21:49 | HP ---
CHIEF COMPLAINT: Abdominal pain. HISTORY OF PRESENT ILLNESS: The patient is a 69-year-old white male. He had a colonoscopy and EGD two days ago. This was performed by Dr. Cuevas in evaluation of weight loss with suspected gastric outlet obstruction. The patient had undergone prior EGD about 2 or 3 months previously. The colonoscopy was unremarkable except for diverticular disease. The EGD revealed extensive disease at the level of the pylorus in the duodenal bulb. There was a pinpoint opening that could not be traversed by the scope. Biopsies were not performed. Coincidentally, the patient had been referred to me and was scheduled to see me as an outpatient tomorrow. He developed progressive abdominal pain that was similar to the pain that he had before his scope. He presented to the emergency room for evaluation of this. He underwent a CT scan that shows evidence of perforation. This perforation was suspected to be related to the sigmoid colon. On my examination, I felt that there is a reasonable chance that it could be related to the duodenum as well. PAST MEDICAL HISTORY: Significant for, 1. Myocardial infarction in April (for which he had a stent placed by Dr. Bragg). 2. Hypercholesterolemia. 3. Hypertension. 4. Peptic ulcer disease. PAST SURGICAL HISTORY: He has had a left hip replacement, left knee replacement, and penile surgery. He has also had an arm fracture that has been repaired. He denies any prior abdominal surgery. MEDICATIONS: 1. Carvedilol. 2. Atorvastatin. 3. Lisinopril. 4. Pantoprazole. 5. Ondansetron. 6. Carafate. ALLERGIES: NO KNOWN DRUG ALLERGIES. PERSONAL AND SOCIAL HISTORY: He is with 5 children and lives in [place]. He is retired. Primary care physician is Dr. Gera Huggins. REVIEW OF SYSTEMS: Otherwise unremarkable. FAMILY HISTORY: Noncontributory. PHYSICAL EXAMINATION: VITAL SIGNS: He is afebrile. His pulse is approximately 100. His blood pressure is within normal limits after 2 L of IV fluids. He was a little hypotensive when he first came in with a systolic around 100. HEAD, EYES, EARS, NOSE, AND THROAT: Unremarkable. NECK: Supple. LUNGS: Clear to auscultation. CARDIAC: Regular rate and rhythm without murmur. ABDOMEN: Diffusely tender. Bowel sounds are absent currently. EXTREMITIES: Unremarkable. LABORATORY DATA: His CBC reveals a white blood cell count of 2.6 with a hemoglobin of 11.3. Of note, his hemoglobin on June 16 was only 9.1. I suspect therefore that this is a concentrated hemoglobin. Platelet count is 257. He has a 47% bandemia. Chemistries reveal sodium and chloride to be low. CO2 is also low at 22. His lactate level is elevated at 2.6. Liver function tests are normal. ASSESSMENT: The patient with a severe gastric outlet obstruction, likely secondary to peptic ulcer disease. He has a perforation related to his recent endoscopy; although the CT scan was read as likely consistent with a sigmoid colon perforation, I suspect instead that this is a perforation related to his peptic ulcer disease. The surgery that I will ultimately perform will depend upon intraoperative findings. I recommend urgent exploratory laparotomy. I would anticipate at the least performing a gastric outlet procedure with a gastrojejunostomy. Repair or resection of the diseased ulcerated segment will depend upon intraoperative findings. Job ID: [id number]
[2019-07-01] MEDS ORDERED: Promethazine HCl 25 MG/ML VIAL SLOW IVP PRN (22:58)
[2019-07-01] MEDS ORDERED: Ondansetron HCl/PF 4 MG/2 ML Vial IVP PRN (22:58)
[2019-07-01] MEDS ORDERED: Promethazine HCl 25 MG/ML VIAL IM PRN ×2 (22:58→23:32)
[2019-07-01] MEDS ORDERED: HYDROmorphone 2 MG/ML VIAL SLOW IVP PRN (22:58)
[2019-07-01] MEDS ORDERED: PACU-Morphine 4MG/ML VIAL SLOW IVP PRN (22:58)
[2019-07-01] MEDS ORDERED: diphenhydrAMINE 50 MG/ML VIAL IM/IV PRN (23:32)
[2019-07-01] MEDS ORDERED: Naloxone HCl 0.4 mg/ml Vial IV PRN (23:32)
[2019-07-01] MEDS ORDERED: fentaNYL Citrate/PF 2,000 MCG in Sodium Chloride 0.9% 60 ML IV PRN (23:32)
[2019-07-01] MEDS ORDERED: Zolpidem Tartrate 5 MG TAB PO PRN (23:32)
[2019-07-01] MEDS ORDERED: diphenhydrAMINE 25 MG CAP PO PRN (23:32)
[2019-07-02] MEDS ORDERED: Sodium Chloride 0.9% 1,000 ML IV SCH (00:52)
[2019-07-02] MEDS ORDERED: hydrALAZINE 20 MG/ML VIAL SLOW IVP PRN (00:52)
[2019-07-02] MEDS ORDERED: Ondansetron PF 4 MG/2 ML Vial IVP PRN (00:52)
[2019-07-02] MEDS ORDERED: Promethazine HCl 25 MG/ML VIAL IM PRN (00:52)
[2019-07-02 01:15] LABS: Lactic Acid 2.3 mmol/L (0.5-2.2)
[2019-07-02] MEDS: Piperacillin/Tazobactam 3.375 GM in Sodium Chloride 0.9% 100 ML IVPB SCH ×6 (01:23→20:47)
[2019-07-02] MEDS: Ketorolac Tromethamine 30 MG/ML VIAL IVP SCH ×5 (01:23→20:43)
[2019-07-02 01:34] VITALS: BMI 26.9
[2019-07-02 04:34] LABS: Anion Gap 16 mmol/L (10-20); BUN (Urea Nitrogen) 10 mg/dL (8.4-25.7); Calc. Creatinine Clearance 117 mL/min (70-130); Calcium 7.7 mg/dL (7.8-10.44); Carbon Dioxide 16 mmol/L (23-31); Chloride 102 mmol/L (98-107); Estimated GFR-MDRD Greater than 90; Potassium 3.4 mmol/L (3.5-5.1); Sodium 131 mmol/L (136-145)
[2019-07-02 04:37] LABS: Glucose 43 mg/dL (83-110)
[2019-07-02 04:51] LABS: Band 32 % (5-11); Hemoglobin 10.3 g/dL (14.0-18.0); Lymphocytes 10 % (21-51); MDiff Complete? YES; Mean Corpuscular HGB CONC 31.3 g/dL (32.0-36.0); Mean Corpuscular Hemoglobin 27.8 pg (27.0-31.0); Mean Corpuscular Volume 88.9 fL (78.0-98.0); Mean Platelet Volume 7.1 fL (7.4-10.4); Monocytes 2 % (0-10); Neutrophil 56 % (42-75); Platelet Count 220 thou/uL (130-400); Platelet Morphology Comment Appears Adequate; RBC Distribution Width 13.9 % (11.5-14.5); Red Blood Cell (RBC) Count 3.72 mill/uL (4.70-6.10); White Blood Cell (WBC) Count 1.6 thou/uL (4.8-10.8)
[2019-07-02] MEDS ORDERED: Dextrose 5 % And 0.9 % NaCl 1,000 ML IV SCH (06:45)
--- NOTE | 2019-07-02 08:50 | PRG ---
DATE OF SERVICE: 07/02/2019 SUBJECTIVE: Mr. Rivera is postoperative day #1 from a laparotomy for treatment of a perforated sigmoid colon. This was repaired primarily without resection. The patient also has a tight gastric outlet obstruction, which is led to substantial weight loss and inability to tolerate significant oral intake. This however was not addressed during the surgery yesterday. I did place a feeding jejunostomy tube for nutrition until I am able to perform his gastric operation. The patient tells me that he feels well. He denies pain and is resting comfortably. He has a nasogastric tube in place. OBJECTIVE: VITAL SIGNS: He is afebrile, his pulse is 87, blood pressure is 112/78. His urine output was only 300 mL overnight and his drain output was about 185 mL, it is relatively light serosanguineous fluid. LUNGS: Clear to auscultation. ABDOMEN: Silent. He has a jejunostomy feeding tube in the left upper abdomen and a ARGELIA drain in his right upper abdomen. He has Telfa olamide in his midline incision and this covered with gauze dressing. There are no bowel sounds. He has mild diffuse tenderness as expected. LABORATORY DATA: His electrolytes show that his sodium and chloride had both gone up since yesterday, but his sodium is still low at 131. His potassium is a little bit low at 3.4. BUN and creatinine are normal. His glucose level is low at 43 this morning, it came up to 61 after being treated with D5W. ASSESSMENT: The patient is doing well following treatment of a colon perforation following endoscopy 2 days ago. He is hemodynamically stable and feels well. It is noted that his white blood cell count has gone down lower to 1.6 with a 32% bandemia. I will continue him on Zosyn as antibiotic coverage. Nasogastric tube will be continued until ileus resolves. Because of his gastric outlet obstruction, I would not advance provide most of his nutrition through his jejunostomy tube. J tube feedings have been initiated at 10 mL/h and will be advanced as his ileus resolves. Job ID: [id number]
[2019-07-02] MEDS: Famotidine/PF 20 mg/2ml Vial SLOW IVP SCH ×2 (09:34→20:43)
[2019-07-02] MEDS: D5 0.9% NS w/ 20 mEq KCl 1,000 ML IV SCH ×2 (09:35→19:05)
[2019-07-02] MEDS: Enoxaparin Sodium 40 MG/0.4 ML SYRINGE SC SCH (10:50)
--- NOTE | 2019-07-02 14:33 | EKG ---
Test Reason : Blood Pressure : / mmHG Vent. Rate : 096 BPM Atrial Rate : 096 BPM P-R Int : 138 ms QRS Dur : 142 ms QT Int : 398 ms P-R-T Axes : 027 -14 145 degrees QTc Int : 502 ms Sinus rhythm with occasional Premature ventricular complexes and Fusion complexes Non-specific intra-ventricular conduction block Inferior infarct , age undetermined T wave abnormality, consider lateral ischemia Abnormal ECG Confirmed by FAWN BARNEY, SANDRA ([id number]), editorial writer EVA SMITH ([id number]) on 07/02/2019 2:33:14 PM Referred By: Confirmed By:SANDRA AUGUSTINE MD
[2019-07-02] MEDS: Famotidine 20 MG TAB PO SCH ×2 (15:13→20:43)
[2019-07-03] MEDS: D5 0.9% NS w/ 20 mEq KCl 1,000 ML IV SCH ×4 (03:24→17:31)
[2019-07-03] MEDS: Piperacillin/Tazobactam 3.375 GM in Sodium Chloride 0.9% 100 ML IVPB SCH ×4 (03:25→21:05)
[2019-07-03] MEDS: Ondansetron PF 4 MG/2 ML Vial IVP PRN ×2 (03:25→13:17)
[2019-07-03] MEDS: Ketorolac Tromethamine 30 MG/ML VIAL IVP SCH ×4 (03:25→21:04)
[2019-07-03 05:41] LABS: Anion Gap 10 mmol/L (10-20); BUN (Urea Nitrogen) 19 mg/dL (8.4-25.7); Calc. Creatinine Clearance 93 mL/min (70-130); Calcium 7.8 mg/dL (7.8-10.44); Carbon Dioxide 23 mmol/L (23-31); Chloride 106 mmol/L (98-107); Estimated GFR-MDRD Greater than 90; Glucose 115 mg/dL (83-110); Potassium 3.7 mmol/L (3.5-5.1); Sodium 135 mmol/L (136-145)
[2019-07-03 05:47] LABS: Band 24 % (5-11); Hemoglobin 8.5 g/dL (14.0-18.0); Hypochromia SLIGHT = 6-15 cells (100X) (0-5/hpf); Lymphocytes 7 % (21-51); MDiff Complete? YES; Mean Corpuscular HGB CONC 30.5 g/dL (32.0-36.0); Mean Corpuscular Hemoglobin 26.8 pg (27.0-31.0); Mean Platelet Volume 6.8 fL (7.4-10.4); Metamyelocyte 1 % (0-0); Monocytes 4 % (0-10); Neutrophil 64 % (42-75); Platelet Count 203 thou/uL (130-400); Platelet Morphology Comment Appears Adequate; RBC Distribution Width 13.7 % (11.5-14.5); Red Blood Cell (RBC) Count 3.16 mill/uL (4.70-6.10)
[2019-07-03] MEDS ORDERED: Sodium Chloride 0.9% 500 ML IVPB SCH (06:30)
--- NOTE | 2019-07-03 06:45 | OP ---
DATE OF PROCEDURE: 07/01/2019 PREOPERATIVE DIAGNOSIS: Perforated intestine, suspected related to peptic ulcer disease. POSTOPERATIVE DIAGNOSIS: Perforated sigmoid colon with evidence of gastric outlet obstruction. OPERATION PERFORMED: Debridement and repair of sigmoid colon perforation, placement of feeding tube jejunostomy, extensive irrigation of intraabdominal peritonitis and placement of intraabdominal drain. ANESTHESIA: General endotracheal. INDICATIONS: The patient is a 69-year-old white male. He has had approximately 30-pound weight loss over the past 2 to 3 months. He was undergoing upper GI endoscopy for evaluation of gastric outlet obstruction. During the same operation, he underwent colonoscopy for screening purposes. At the time of that procedure, he was found to have such a tight stricture secondary to a duodenal bulb disease that the scope could not pass through. However, no biopsies were obtained at this juncture. The colonoscopy was also performed without biopsy revealing extensive diverticular disease, but no masses. The patient presented to the emergency room on this day complaining of progressively severe abdominal pain. CT scan revealed evidence of free air and fluid that was extraintestinal. He also had marked leukocytopenia and bandemia consistent with developing sepsis. He was taken urgently to the operating room for exploration. DESCRIPTION OF OPERATION: Informed consent was obtained. Patient was taken to the operating room, where general endotracheal anesthesia obtained with patient in supine position. Abdomen was prepped with ChloraPrep and draped in sterile fashion. A midline incision was created. Dissection was carried through skin and subcutaneous tissue. There was cloudy fluid throughout the abdomen, but there was no real smell to it. The fluid was aspirated and cultures were obtained. I explored the upper and lower abdomen and it was in the lower abdomen that I found the majority of the fibrinopurulent material. Further exploration revealed the perforation within the sigmoid colon. I therefore extended the incision inferiorly to gain better access. I quickly closed the defect with a nrisgi-nz-balfx suture of 3-0 silk to prevent further soilage. I then mobilized the left colon by incising the white line of Toldt. I incised the lateral peritoneal attachments of the sigmoid colon in order to be able to mobilize this. I examined the colon and found that it did not have substantial induration related to diverticular disease. The perforation was actually anti-mesenteric and not related to a diverticulum. There was not a defined segment of colon that would benefit from resection and I therefore decided to proceed with a local repair. I debrided the devitalized area of the perforation back to viable bleeding tissue. By the time, this was debrided there was a little less than 1 cm defect. I closed this transversely in layers using interrupted cwsmia-pe-mwtfy sutures of 3-0 Vicryl to approximate the edges in a full-thickness fashion and then inverted the first layer with a series of interrupted Lembert sutures of 3-0 silk. The lumen appeared to be of adequate caliber. Attention was turned to the upper abdomen. There was extensive gastric dilatation. I worked with Anesthesia to be able to aspirate more of the contents. The area of the gastric outlet obstruction was palpable and was mobile. It did not appear to have eroded into any posterior tissue. As there was extensive intraabdominal purulence and infectious material, I decided not to proceed with the gastric resection. The nasogastric tube position was confirmed. I decided to place a feeding jejunostomy tube so that he could achieve adequate nutrition while we waited to proceed with his gastric surgery. I obtained a 16-Finnish red rubber catheter and passed it through the abdominal wall in the left upper abdomen. I identified the small bowel about 30 cm distal to the ligament of Treitz. At this juncture, I created an enterotomy on the anti-mesenteric surface and passed the red rubber catheter intraluminal. I had modified the end of the catheter with additional openings. I placed a pursestring suture of 3-0 silk around the catheter entry site and then created a Witzel tunnel with a total length of about 2.5 cm. Finally, I secured the small bowel to the anterior abdominal wall with 4 interrupted sutures of 3-0 silk at the entry location. I then secured the feeding tube externally with a 3-0 nylon suture. A #19 round fluted drain was obtained and brought out the right upper abdomen. It was positioned down within the pelvis and near the colon closure suture line. The abdomen was irrigated with 3 L of warm saline. All irrigant was aspirated. The fascia was closed with a running suture of looped #1 PDS. Subcutaneous tissue was irrigated again and the skin edges were approximated with skin nader with Telfa olamide between the nader. Not mentioned above is that the patient's left groin reservoir for his penile prosthesis was seen and palpated during the surgery, but was not involved in the operation nor was it injured. Also not mentioned is that 2 sheets of Seprafilm were placed prior to closure of the fascia. Dry gauze dressing was placed externally. The patient was extubated and taken to recovery in stable condition. Job ID: [id number]
[2019-07-03] MEDS: Famotidine/PF 20 mg/2ml Vial SLOW IVP SCH (07:48)
[2019-07-03] MEDS: Famotidine 20 MG TAB PO SCH (08:09)
[2019-07-03] MEDS: Enoxaparin Sodium 40 MG/0.4 ML SYRINGE SC SCH (08:56)
[2019-07-03] MEDS ORDERED: Sodium Chloride 0.9% (PF) 10 ML VIAL FS PRN (09:58)
[2019-07-03] MEDS ORDERED: Mag-Al 1200 mg/1200 mg/30 ML UDCUP PO SCH (10:00)
[2019-07-03] MEDS ORDERED: Pantoprazole 40 MG VIAL IVP SCH (10:00)
[2019-07-03] MEDS ORDERED: Sodium Chloride 0.9% 1,000 ML IV SCH (17:15)
--- NOTE | 2019-07-03 17:41 | RAD ---
RADIOGRAPH ABDOMEN ONE VIEW: 07/02/09 at 5:01 p.m. HISTORY: 69-year-old male status post NG tube placement. FINDINGS: Esophagogastric tube distal tip is in the left upper quadrant, directed laterally in the proximal bod y of the stomach. The side hole is in the vicinity of the esophagogastric junction or gastric cardia. IMPRESSION: Placement of esophagogastric tube into the proximal stomach. POS: [facility]
--- NOTE | 2019-07-03 17:59 | PRG ---
DATE OF SERVICE: 07/03/2019 SUBJECTIVE: Postoperatively, he is complaining of indigestion. His Pepcid has been changed to Protonix. Maalox has been ordered p.r.n. Probably this indigestion is related to his ileus after his colon perforation and also contributed by his gastric outlet obstruction. He is taking ice chips. Intraoperatively, Dr. Ahmadi confirmed the NG tube was in proper position. He is 5 feet 8 inches. NG tube is at 55 cm of nares. Because of his persistent complaints of indigestion, we will obtain a portable abdominal x-ray to check NG tube placement. We will add Reglan. We will continue intravenous fluids at 125/hour. He is on Zosyn. We will continue that. At this point, we will await ileus resolution. The patient while walked in the room, had his feeding tube dangling, held only in place by the sutures . I reiterated to him he should keep this secured at all times. This is his lifeline and he needs to make sure it is secured with tape and not just depending on the suture. OBJECTIVE: LUNGS: Clear to auscultation. CARDIAC: Regular rate and rhythm. No murmur or gallop. ABDOMEN: Soft, quiet. No bowel sounds. Surgical wound looks good. His dressing looks good, dry. LABORATORY DATA: Sodium 135, potassium 3.7, white count 5, hemoglobin 8.5. ASSESSMENT AND PLAN: Overall, he is doing well. Await ileus resolution and GI function. Continue intravenous antibiotics, secure feeding tube, initiate Reglan and check NG tube placement with abdominal x-ray. Job ID: [id number]
[2019-07-03] MEDS: Pantoprazole 40 MG VIAL IVP SCH (21:05)
[2019-07-03] MEDS: Metoclopramide HCl 10 MG/2 ML VIAL IVP SCH (21:05)
[2019-07-04] MEDS: Ketorolac Tromethamine 30 MG/ML VIAL IVP SCH ×2 (03:34→08:54)
[2019-07-04] MEDS: Piperacillin/Tazobactam 3.375 GM in Sodium Chloride 0.9% 100 ML IVPB SCH ×4 (03:34→20:12)
[2019-07-04] MEDS: D5 0.9% NS w/ 20 mEq KCl 1,000 ML IV SCH ×3 (03:35→12:27)
[2019-07-04] MEDS: Metoclopramide HCl 10 MG/2 ML VIAL IVP SCH (05:37)
[2019-07-04 05:51] LABS: Band 36 % (5-11); Hemoglobin 9.1 g/dL (14.0-18.0); Lymphocytes 7 % (21-51); MDiff Complete? YES; Mean Corpuscular HGB CONC 31.6 g/dL (32.0-36.0); Mean Corpuscular Hemoglobin 27.9 pg (27.0-31.0); Mean Corpuscular Volume 88.1 fL (78.0-98.0); Mean Platelet Volume 6.6 fL (7.4-10.4); Monocytes 6 % (0-10); Neutrophil 51 % (42-75); Platelet Count 218 thou/uL (130-400); Platelet Morphology Comment Appears Adequate; RBC Distribution Width 13.8 % (11.5-14.5); Red Blood Cell (RBC) Count 3.25 mill/uL (4.70-6.10); White Blood Cell (WBC) Count 8.2 thou/uL (4.8-10.8)
[2019-07-04 05:57] LABS: ALT (SGPT) 12 U/L (8-55); AST (SGOT) 18 U/L (5-34); Albumin 2.4 g/dL (3.4-4.8); Alkaline Phosphatase 40 U/L (40-110); Anion Gap 10 mmol/L (10-20); BUN (Urea Nitrogen) 15 mg/dL (8.4-25.7); Bilirubin, Total 0.3 mg/dL (0.2-1.2); Calc. Creatinine Clearance 112 mL/min (70-130); Calcium 7.3 mg/dL (7.8-10.44); Carbon Dioxide 20 mmol/L (23-31); Chloride 112 mmol/L (98-107); Estimated GFR-MDRD Greater than 90; Globulin 2.1 g/dL (2.4-3.5); Glucose 114 mg/dL (83-110); Magnesium 1.9 mg/dL (1.6-2.6); Phosphorus 2.2 mg/dL (2.3-4.7); Potassium 3.7 mmol/L (3.5-5.1); Protein, Total 4.5 g/dL (5.8-8.1); Sodium 138 mmol/L (136-145)
[2019-07-04] MEDS: Pantoprazole 40 MG VIAL IVP SCH ×2 (08:53→20:12)
[2019-07-04] MEDS: Enoxaparin Sodium 40 MG/0.4 ML SYRINGE SC SCH (10:14)
[2019-07-04] MEDS ORDERED: traMADol HCl 50 MG TAB PO PRN ×2 (11:56)
[2019-07-04] MEDS ORDERED: Furosemide 40 MG/4 ML VIAL SLOW IVP SCH (12:00)
--- NOTE | 2019-07-04 12:36 | PRG ---
DATE OF SERVICE: 07/04/2019 SUBJECTIVE: Mr. Rivera is doing somewhat better today. His NG tube output has been very little over the past 24 hours. He is tolerating his tube feedings. He has not complained of indigestion anymore. He is having loose stools since starting the tube feedings. OBJECTIVE: VITAL SIGNS: Temperature 98.2 degrees, heart rate 86, respiratory rate 24, blood pressure 139/88. LABORATORY DATA: Sodium 138, potassium 3.7, BUN 15, creatinine 0.69. White count 8, hemoglobin 9.1. ASSESSMENT AND PLAN: Doing well today. We will advance his tube feedings. We will remove his NG tube. Unfortunately, the patient has a relative, who has , and he is wanting to try to get out of the hospital soon. Hopefully, Case Management can arrange outpatient tube feedings and home health nursing. We will see what we can do to accommodate his needs. Dr. Ahmadi will return tomorrow. He can have ice chips medications orally. Job ID: [id number]
[2019-07-04] MEDS: Metoclopramide 10 MG/10 ML UDCUP PO SCH ×2 (15:59→20:11)
[2019-07-04] MEDS: HYDROcodone/Acetaminophen 5/325 mg Tablet PO PRN ×2 (16:01→20:11)
[2019-07-05] MEDS: Piperacillin/Tazobactam 3.375 GM in Sodium Chloride 0.9% 100 ML IVPB SCH ×4 (03:34→20:51)
[2019-07-05] MEDS: D5 0.9% NS w/ 20 mEq KCl 1,000 ML IV SCH ×2 (03:34→12:52)
[2019-07-05] MEDS: HYDROcodone/Acetaminophen 5/325 mg Tablet PO PRN ×5 (05:53→22:13)
[2019-07-05] MEDS: Metoclopramide 10 MG/10 ML UDCUP PO SCH ×5 (07:19→20:54)
[2019-07-05] MEDS: Pantoprazole 40 MG VIAL IVP SCH (09:10)
[2019-07-05] MEDS: Enoxaparin Sodium 40 MG/0.4 ML SYRINGE SC SCH (09:28)
--- NOTE | 2019-07-05 11:27 | PQF ---
ALTAGRACIA HIDALGO, SANDRA Armstrong MD [id number] [facility] A- 3336 [id number] CLINICAL DOCUMENTATION IMPROVEMENT CLARIFICATION FORM: ICD-10 Updated PLEASE DO AN ADDENDUM TO THE PROGRESS NOTE WITH ANY DOCUMENTATION UPDATES OR ADDITIONS AND CARRY THROUGH TO DC SUMMARY. THANK YOU. Date: 07/05/2019 , 07/06/2019 ATTN:DR. Meghann IRENE Please exercise your independent, professional judgment in responding to the clarification form. Clinical indicators are provided on the bottom of this form for your review. Please check appropriate box(s): [x ] Protein Calorie Malnutrition: [ ] Mild [ ] Moderate [ x ] Severe [ ] Other Malnutrition (please specify) __ [ ] Underweight without malnutrition [ ] Cachexia [ ] Other diagnosis [ ] Unable to determine In addition, please specify: Present on Admission (POA): [x ] Yes [ ] No [ ] Unable to determine CLINICAL INDICATORS - SIGNS / SYMPTOMS / LABS / RESULTS AND LOCATION IN MR 07/01 RD: ASSESSMENT: PT REPORTS HARDLY EATING ANYTHING FOR A LONG TIME; < 75% ENERGY INTAKE COMPARED TO ESTIMATED ENERGY NEEDS FOR > 1 MONTH, MILD TEMPORAL MUSCLE WASTING AND MILD BUCCAL FAT PAD WASTING, SUGGESTIVE OF MALNUTRITION IN THE CONTEXT OF CHRONIC ILLNESS. 06/30 H&P (TETO) THE PT IS A 69 YEAL OLD WHITE MALE. HE HAD A COLONOSCOPY AND EGD TWO DAYS AGO. THIS WAS PERFORMED BY DR. REEVES IN EVALUATION OF WEIGHT LOSS WITH SUSPECTED GASTRIC OUTLET OBSTRUCTION. 07/01 PN (TETO) THE PT HAS A TIGHT GASTRIC OUTLET OBSTRUCTION, WHICH IS LED TO SUBSTANTIAL WEIGHT LOSS AND INABILITY TO TOLERATE SIGNIFICANT ORAL INTAKE. RISK: DX GASTRIC OUTLET OBSTRUCTION, ABD PAIN, SIGMOID COLON PERFORATION.(H&P/TETO ) 06/30 TREATMENTS: DIETARY CONSULT (07/01) JEVITY TUBE FEEDS (STARTED 07/01) JEJUNOSTOMY TUBE PLACEMENT ( 07/01) Moderate Malnutrition (in acute illness) Weight Loss: 1-2%/1 week; 5%/ 1 month; 7.5%/3 months Other: mild body fat loss; mild muscle mass loss; mild fluid accumulation; Energy intake: < 75 % of estimated energy requirements for > 7 days Severe Malnutrition (in acute illness) Energy Intake: < 50% of estimated energy requirement for > 5 days Weight Loss: >1-2%/1 week; >5%/1 month; >7.5%/3 months Other: moderate body fat loss; moderate muscle mass loss; moderate- severe fluid accumulation; measurably reduced metal organ pipe maker strength Moderate Malnutrition (in chronic illness) Energy Intake: <75% of estimated energy requirement for >1 month Weight Loss: 5%/1 month; 7.5%/3 months; 10%/6 months; 20%/1 year Other: mild body fat loss; mild muscle mass loss; mild fluid accumulation Severe Malnutrition (in chronic illness) Energy Intake: <75% of estimated energy requirement for >1 month Weight Loss: >5%/1 month; >7.5%/3 months; >10%/6 months; >20%/1 year Other: severe body fat loss; severe muscle mass loss; severe fluid accumulation ; measurably reduced metal organ pipe maker strength THANK YOU! SEFERINO (This form is maintained as a part of the permanent medical record) 2014 [employer] All Rights Reserved [email or web address]
[2019-07-05] MEDS ORDERED: Ondansetron ODT 4 MG TAB PO PRN (14:05)
[2019-07-05] MEDS ORDERED: Pancrelipase DR 12000 1 CAP FS PRN (14:24)
[2019-07-05] MEDS ORDERED: Sodium Bicarbonate Tab 325 MG TAB PER TUBE PRN (14:24)
--- NOTE | 2019-07-05 14:51 | PRG ---
DATE OF SERVICE: 07/05/2019 SUBJECTIVE: Mr. Rivera is postoperative day #4 from an exploratory laparotomy, repair of sigmoid colon perforation. He also has gastric outlet obstruction. A feeding jejunostomy was placed at the time of his surgery. He was started on tube feeds and has been slowly advanced. He tells me he had four or five bowel movements yesterday. He tells me he is passing gas. Nasogastric tube was removed this morning. He tells me he is hungry. He is started taking pills, which he is tolerating well. He is ambulating. He denies abdominal pain. OBJECTIVE: VITAL SIGNS: On examination, he is afebrile. Pulse 95 and blood pressure 129/87. LUNGS: Clear to auscultation. ABDOMEN: Soft and nontender. His incision is healing nicely. Telfa olamide are still intact. Bowel sounds are present, but hypoactive. Drain output in the right lower quadrant is light colored almost serous. Feeding tube is present in the left abdomen. LABORATORY DATA: He did not have a CBC today nor did he have any chemistries today. ASSESSMENT AND PLAN: The patient is stable following his surgery. He apparently had a in the family and would like to go home as soon as possible. I will therefore try to advance his tube feeds over the remainder of today and if he tolerates this, then I would hopefully be able to discharge him home tomorrow. Home health will be consulted to help with tube feeds at time of discharge. Job ID: [id number]
[2019-07-05] MEDS ORDERED: Fluconazole In NaCl,Iso-Osm 400 MG in Premix Bag 1 BAG IVPB SCH (17:30)
[2019-07-05] MEDS: Carvedilol 25 MG TAB PO SCH (20:51)
[2019-07-05] MEDS ORDERED: Atorvastatin Calcium 40 MG TAB PO SCH (21:00)
[2019-07-06] MEDS: Piperacillin/Tazobactam 3.375 GM in Sodium Chloride 0.9% 100 ML IVPB SCH ×3 (02:03→15:38)
[2019-07-06 06:29] LABS: Band 26 % (5-11); Eosinophils 2 % (0-10); Lymphocytes 13 % (21-51); MDiff Complete? YES; Mean Corpuscular HGB CONC 31.3 g/dL (32.0-36.0); Mean Corpuscular Hemoglobin 27.2 pg (27.0-31.0); Mean Corpuscular Volume 86.8 fL (78.0-98.0); Mean Platelet Volume 6.9 fL (7.4-10.4); Monocytes 10 % (0-10); Neutrophil 49 % (42-75); Platelet Count 265 thou/uL (130-400); Platelet Morphology Comment Appears Adequate; RBC Distribution Width 14.2 % (11.5-14.5); Red Blood Cell (RBC) Count 3.32 mill/uL (4.70-6.10); White Blood Cell (WBC) Count 8.8 thou/uL (4.8-10.8)
[2019-07-06 06:30] LABS: Anion Gap 13 mmol/L (10-20); BUN (Urea Nitrogen) 10 mg/dL (8.4-25.7); Calc. Creatinine Clearance 140 mL/min (70-130); Calcium 7.5 mg/dL (7.8-10.44); Carbon Dioxide 19 mmol/L (23-31); Chloride 111 mmol/L (98-107); Estimated GFR-MDRD Greater than 90; Glucose 111 mg/dL (83-110); Potassium 3.8 mmol/L (3.5-5.1); Sodium 139 mmol/L (136-145)
[2019-07-06] MEDS: Metoclopramide 10 MG/10 ML UDCUP PO SCH ×2 (06:59→15:38)
[2019-07-06] MEDS: Carvedilol 25 MG TAB PO SCH (08:23)
[2019-07-06] MEDS ORDERED: Lisinopril 5 MG TAB PO SCH (09:00)
[2019-07-06] MEDS ORDERED: Furosemide 20 MG TAB PO SCH (09:00)
[2019-07-06] MEDS: D5 0.9% NS w/ 20 mEq KCl 1,000 ML IV SCH (11:19)
[2019-07-06] MEDS: Enoxaparin Sodium 40 MG/0.4 ML SYRINGE SC SCH (11:20)
[2019-07-06 11:28] VITALS: BP 119/82
[2019-07-06] MEDS: HYDROcodone/Acetaminophen 5/325 mg Tablet PO PRN (15:35)
[2019-07-06 15:56] VITALS: TEMP 97.8
--- NOTE | 2019-07-07 05:56 | PQF ---
ALTAGRACIA HIDALGO MICHAEL W MD [id number] [facility] A- 3336 [id number] CLINICAL DOCUMENTATION CLARIFICATION FORM: POST DISCHARGE Addendum to original discharge summary date: ____ Late entry note date: __ DATE: 07/07/19 ATTN:Damon Ahmadi Please exercise your independent, professional judgment in responding to the clarification form. Clinical indicators are provided on the bottom of this form for your review Can you please further clarify if Sigmoid perforation with peritonitis colon is a complication of recent Colonoscopy/EGD or not? Please check appropriate box(s): [x ] Sigmoid perforation with peritonitis colon is a complication of recent Colonoscopy [ ] Sigmoid perforation with peritonitis colon is not a complication of recent Colonoscopy [ ] Other diagnosis please specify [ ] Unable to determine In addition, please specify: Present on Admission (POA): [x ] Yes [ ] No [ ] Unable to determine CLINICAL INDICATORS - SIGNS / SYMPTOMS / LABS H and P pg.1- he had colonoscopy and EGD 2 days ago H and P pg.1- he developed progressive abdominal pain that was similar to the pain that he had before his scope H and P pg.2- He has a perforation related to his recent endoscopy H and P pg.2- CT scan was read as likely consistent with as sigmoid perforation. I suspect that this a perforation r/t his peptic ulcer disease RISK FACTORS PUD- H and P pg.1 s/p colonoscopy and EGD- H and P pg.1 HTN- H and P pg.1 69 years old- H and P pg.1 Perforated sigmoid- OP report pg.1 Gastric outlet obstruction- OP report pg.1 Peritonitis- OP report pg.1 Ileus PN pg1 07/02 TREATMENT: Abdomen/Pelvis CT 06/30 Debridement and repair of sigmoid perforation- OP report pg.1 Placement op feeding tube- OP report pg.1 Extensive irrigation of intraabdominal peritonitis- OP report pg.1 IV Fluids- MAR Morphine 4mg IV- MAR Zosyn 3.375gm- IV MAR (This form is maintained as a part of the permanent medical record) 2014 [employer]. All Rights Reserved [email or web address]
--- NOTE | 2019-07-07 06:41 | PQF ---
ALTAGRACIA HIDALGO MICHAEL W MD [id number] [facility] A- 3336 [id number] CLINICAL DOCUMENTATION CLARIFICATION FORM: POST DISCHARGE Addendum to original discharge summary date: ____ Late entry note date: __ DATE: 07/07/19 ATTN: Damon Ahmadi Please exercise your independent, professional judgment in responding to the clarification form. Clinical indicators are provided on the bottom of this form for your review Can you please further clarify the diagnosis of the patient? Please check appropriate box(es): [x ] Sepsis due to Sigmoid perforation with Peritonitis [ ] Sepsis due to other condition, pls specify ____ [ ] No sepsis [ ] Other diagnosis [ ] Unable to determine In addition, please specify: Present on Admission (POA): [ x ] Yes [ ] No [ ] Unable to determine For continuity of documentation, please document condition throughout progress notes and discharge summary. Thank You. CLINICAL INDICATORS - SIGNS / SYMPTOMS / LABS OP Report pg.1- He also had marked leukocytopenia and bandemia consistent with developing Sepsis H and P pg.1- he had colonoscopy and EGD 2 days ago H and P pg.1- VS: He is afebrile, his pulse is aprrox 100, BP within normal limits H and P pg.2- He has a perforation related to his recent endoscopy H and P pg.2- CT scan was read as likely consistent with as sigmoid perforation. I suspect that this a perforation r/t his peptic ulcer disease Microbiology- Peritoneal fluid swab: Anaerobic Gram negative Reza Microbiology- Blood culture- Bacteroides thetaiotaomicron Laboratory- WBC 2.6L, 1.6L, 5.0, 8.2, 8.8 RISK FACTORS Intraabdominal peritonitis- OP report pg.1 Perforated Sigmoid- OP report pg.1 s/p colonoscopy and EGD- H and P pg.1 HTN- H and P pg.1 69 years old- H and P pg.1 Gastric outlet obstruction- OP report pg.1 Peritonitis- OP report pg.1 Ileus PN pg1 07/02 TREATMENTS: Abdomen/Pelvis CT 06/30 Debridement and repair of sigmoid perforation- OP report pg.1 Placement op feeding tube- OP report pg.1 Extensive irrigation of intraabdominal peritonitis- OP report pg.1 IV Fluids- MAR Morphine 4mg IV- MAR Zosyn 3.375gm- IV MAR Bacterial culture-Microbiology Blood culture- Microbiology (This form is maintained as a part of the permanent medical record) 2014 [employer]. All Rights Reserved Madi [email or web address]
== END 2019-07-06 16:55 | disposition home health service (06) | DRG 329 ==
LOC: ERS 17:32 → SDC/OP 20:49 → SURG A 23:16
PROVIDERS: ADMIT Specialist; ATTEND Specialist
PROC: 0DBN0ZZ Excision of Sigmoid Colon, Open Approach (ICD-10-PCS; principal; 2019-07-01)
PROC: 0DQN0ZZ Repair Sigmoid Colon, Open Approach (ICD-10-PCS; 2019-07-01)
PROC: 0W9G00Z Drainage of Peritoneal Cavity with Drainage Device, Open Approach (ICD-10-PCS; 2019-07-01)
PROC: 0DHA0UZ Insertion of Feeding Device into Jejunum, Open Approach (ICD-10-PCS; 2019-07-01)
PROC: 3E0M05Z Introduction of Adhesion Barrier into Peritoneal Cavity, Open Approach (ICD-10-PCS; 2019-07-01)
DX: K91.89 Other postprocedural complications and disorders of digestive system (principal); K63.1 Perforation of intestine (nontraumatic); K65.9 Peritonitis, unspecified; E43 Unspecified severe protein-calorie malnutrition; A41.9 Sepsis, unspecified organism; T81.44XA Sepsis following a procedure, initial encounter; K31.1 Adult hypertrophic pyloric stenosis; K56.7 Ileus, unspecified; E78.00 Pure hypercholesterolemia, unspecified; I10 Essential (primary) hypertension; K27.9 Peptic ulcer, site unspecified, unspecified as acute or chronic, without hemorrhage or perforation; Z96.642 Presence of left artificial hip joint; Z96.652 Presence of left artificial knee joint; J30.2 Other seasonal allergic rhinitis; I25.2 Old myocardial infarction; Z79.899 Other long term (current) drug therapy; Z68.26 Body mass index [BMI] 26.0-26.9, adult; Y83.8 Other surgical procedures as the cause of abnormal reaction of the patient, or of later complication, without mention of misadventure at the time of the procedure
CPT/HCPCS: 36415; 36416; 71045; 74018; 74177; 80048; 80053; 83605; 83690; 83735; 84100; 85025; 85060; 85610; 85730; 86850; 86900; 86901; 87040; 87070; 87076; 87077; 87149; 87186; 87205; 93005; 96361; 96365; 96375; C9113; J1100; J1170; J1200; J1450; J1650; J1885; J1940; J2001; J2185; J2270; J2370; J2405; J2543; J2704; J2765; J3010; J3480; J3490; J7030; J7042; P9045; Q9967; S0028

== ENCOUNTER 2019-07-16 10:43 | Inpatient (IN) | payer MEDICARE ==
[~2019-07-16 10:43] MED LIST changes: -Dexamethasone 20 MG/5 ML VIAL ONE; -EPHEDRINE 25 MG/5 ML SYRINGE ONE; -Glycopyrrolate 0.2 MG/ML 5 ML SYRINGE ONE; +Heparin 1,000 UNITS/ML VIAL ONE; -Ketorolac Tromethamine 30 MG/ML VIAL ONE; -Lidocaine 1% PF 5 ML VIAL ONE; -Ondansetron PF 4 MG/2 ML Vial ONE; -PHENYLEPHRINE-NS 100 MCG/ML 10 ML SYRINGE ONE; -PROPOFOL 200 MG/20 ML VIAL ONE; -Rocuronium Bromide 10 MG/ML (10ML VIAL) ONE; -Succinylcholine Chloride 20 MG/ML 10 ml SYRINGE FS ONE
[2019-07-16 11:21] LABS: #Lymphocytes 0.9 thou/uL (1.20-3.40); #Monocytes 0.5 thou/uL (0.11-0.59); #Neutrophils 5.8 thou/uL (1.40-6.50); %Eosinophils 0.4 % (0.0-10.0); %Lymphocytes 11.9 % (21.0-51.0); %Monocytes 6.9 % (0.0-10.0); %Neutrophils 80.9 % (42.0-75.0); Hemoglobin 8.8 g/dL (14.0-18.0); Mean Corpuscular HGB CONC 31.5 g/dL (32.0-36.0); Mean Corpuscular Volume 82.5 fL (78.0-98.0); Platelet Count 666 thou/uL (130-400); RBC Distribution Width 14.8 % (11.5-14.5); Red Blood Cell (RBC) Count 3.41 mill/uL (4.70-6.10); White Blood Cell (WBC) Count 7.2 thou/uL (4.8-10.8)
[2019-07-16 11:54] LABS: ALT (SGPT) 11 U/L (8-55); AST (SGOT) 17 U/L (5-34); Albumin 2.6 g/dL (3.4-4.8); Alkaline Phosphatase 67 U/L (40-110); Anion Gap 16 mmol/L (10-20); BUN (Urea Nitrogen) 18 mg/dL (8.4-25.7); Bilirubin, Total 0.3 mg/dL (0.2-1.2); Calc. Creatinine Clearance 0 mL/min (70-130); Calcium 7.9 mg/dL (7.8-10.44); Carbon Dioxide 28 mmol/L (23-31); Estimated GFR-MDRD 78; Globulin 2.9 g/dL (2.4-3.5); Glucose 90 mg/dL (83-110); Protein, Total 5.5 g/dL (5.8-8.1); Sodium 131 mmol/L (136-145)
[2019-07-16] MEDS ORDERED: Ondansetron PF 4 MG/2 ML Vial ONE (11:54)
[2019-07-16] MEDS ORDERED: Morphine 4 MG/ML VIAL ONE (11:55)
[2019-07-16 12:09] LABS: Chloride 90 mmol/L (98-107)
[2019-07-16] MEDS ORDERED: Potassium Chloride 20 MEQ TAB ONE (12:36)
[2019-07-16] MEDS ORDERED: Piperacillin/Tazobactam 4.5 GM VIAL ONE (12:36)
[2019-07-16] MEDS ORDERED: Vancomycin 1 GM/200 ML BAG ONE (12:37)
[2019-07-16 12:48] LABS: Bilirubin Negative (Negative); Blood, Urine Negative (Negative); Clarity Clear (Clear); Glucose, Urine (Dipstick) Normal (Negative); Leukocyte Negative Leu/uL (Negative); Nitrite Negative (Negative); Protein, Urine (Dipstick) Negative (Neg-Trace)
--- NOTE | 2019-07-16 14:59 | CT ---
CT OF THE ABDOMEN AND PELVIS WITH IV CONTRAST: INDICATION: History of abdominal pain. COMPARISON: Prior exam dated 07/01/2019. FINDINGS: There are slightly increasing small bilateral pleural effusions with bibasilar atelectasis. There is scattered mild ascites within the upper abdomen adjacent to the liver. The pancreas and adrenal glands are normal-appearing. There are numerous dilated loops of small bowel with a transition zone in the right lower quadrant of the abdomen suspicious for a mild to moderate partial small bowel obstruction. There is gas and fec al material in the colon. There is scattered colonic diverticula. There is a penile implant seen within the left hemipelvis. Bladder, rectum, and perirectal soft tiss ues are unremarkable-appearing. There is a postprocedural change of a left posterior acetabular wall fracture repair and left hip arthroplasty. There is scattered degenerative change. IMPRESSION: 1. Findings suspicious for mild to moderate partial small bowel obstruction with a transition zone i n the right lower quadrant of the abdomen. 2. Mild free fluid in the abdomen with moderate anasarca. 3. Mild sized pleural effusions with bibasilar atelectasis. POS: BH
[2019-07-16] MEDS ORDERED: Sodium Chloride 0.9% 1,000 ML IV SCH (18:14)
[2019-07-16] MEDS ORDERED: Ondansetron PF 4 MG/2 ML Vial IVP PRN (18:14)
[2019-07-16] MEDS ORDERED: Ondansetron ODT 4 MG TAB SL PRN (18:14)
[2019-07-16] MEDS ORDERED: Acetaminophen 325 MG TAB PO PRN (18:14)
[2019-07-16] MEDS ORDERED: hydrALAZINE 20 MG/ML VIAL SLOW IVP PRN (18:16)
[2019-07-16] MEDS ORDERED: Dextrose 5% in Water 1,000 ML IV PRN (18:16)
[2019-07-16] MEDS ORDERED: Dextrose 50% Abboject 50 ML SYRINGE SLOW IVP PRN (18:16)
[2019-07-16] MEDS ORDERED: D5 1/2 NS w/20 mEq KCL 1,000 ML IV SCH (18:30)
[2019-07-16] MEDS ORDERED: Sodium Chloride 0.9% (PF) 10 ML VIAL FS PRN (18:31)
[2019-07-16] MEDS: Ondansetron PF 4 MG/2 ML Vial IVP PRN (18:48)
--- NOTE | 2019-07-16 20:31 | RAD ---
KUB: 07/16/19 COMPARISON: 07/03/19 HISTORY: Small bowel obstruction. FINDINGS: Anterior views of the abdomen shows air filled loops of small bowel. Air is seen in the colon extendi ng to the level of the rectum. [place] are seen along the left abdominal wall. Contrast is seen in the pelvis which may represent contrast in the urinary bladder or rectum. The pat ient is status post left hip arthroplasty. A penile prosthesis is visualized. Degenerative changes ar e seen in the spine. IMPRESSION: Persistent dilated loops of small bowel may be secondary to postoperative ileus or small bowel obstru ction. POS: EAA
[2019-07-16] MEDS ORDERED: Carvedilol 25 MG TAB PO SCH (21:00)
[2019-07-16] MEDS: Enoxaparin Sodium 40 MG/0.4 ML SYRINGE SC SCH (21:26)
[2019-07-16] MEDS: D5 NS w/ 40 mEq KCl 1,000 ML IV SCH (21:26)
[2019-07-16] MEDS: Loratadine 10 MG TAB PO SCH (21:27)
[2019-07-16] MEDS: Pantoprazole 40 MG VIAL IVP SCH (21:31)
[2019-07-16] MEDS: Morphine 2 MG/ML SYRINGE SLOW IVP PRN (21:36)
--- NOTE | 2019-07-17 01:07 | HP ---
CHIEF COMPLAINT: Abdominal pain with nausea and vomiting. HISTORY OF PRESENT ILLNESS: The patient is a 69-year-old white male, well known to myself from prior surgery. He has a recent history of a near complete gastric outlet obstruction, which was diagnosed with endoscopy on June 28. At the same time, he underwent a colonoscopy. Unfortunately, he had a postoperative complication that he developed a sigmoid colon perforation, for which he presented to the hospital on June 30. On that day, I performed exploratory laparotomy. I surprisingly found the sigmoid colon perforation. This was debrided and primarily repaired. As the patient was malnourished secondary to his inadequate oral intake because of the gastric outlet obstruction, at that time, I also placed a jejunal feeding tube. He was discharged home to continue jejunostomy tube feeds. These have been performed with intermittent success over the past week or so since he was discharged. Today, he noted increasing distention with nausea and vomiting and abdominal pain and he presented to the emergency room. He underwent evaluation in the emergency room with laboratory and radiologic studies. LABORATORY STUDIES: Reveal anemia with a hemoglobin of 8.8. This is essentially stable from his last hemoglobin level of 9.0 on the . His white blood cell count is normal at 7.2, but he does have a left shift with 81 neutrophils. His platelets are elevated at 666. His chemistry panel reveals hyponatremia and hypokalemia as well as hypochloremia. His albumin level is markedly depressed at 2.6. This is down from 2.[address] scan showed evidence of significant gastric distention as well as small-bowel dilatation and what appears to be a small-bowel obstruction with a transition zone in the right lower quadrant. PAST MEDICAL HISTORY: 1. Myocardial infarction in April (for which he had a stent placed by Dr. Bragg). 2. Hypercholesterolemia. 3. Hypertension. 4. Peptic ulcer disease. 5. Gastric outlet obstruction. 6. Recent sigmoid colon perforation. PAST SURGICAL HISTORY: 1. Left hip replacement. 2. Left knee replacement. 3. Penile prosthesis. 4. History of an arm fracture that has been repaired. 5. Exploratory laparotomy with repair of sigmoid colon perforation on June 30. MEDICATIONS: 1. Carvedilol. 2. Atorvastatin. 3. Lisinopril. 4. Pantoprazole. 5. Ondansetron. ALLERGIES: NO KNOWN DRUG ALLERGIES. PERSONAL AND SOCIAL HISTORY: He is with 5 children. Lives in [place]. He is retired. Primary care physician is Dr. Huggins. REVIEW OF SYSTEMS: Otherwise unremarkable. FAMILY HISTORY: Noncontributory. PHYSICAL EXAMINATION: VITAL SIGNS: In the emergency room earlier today, his initial blood pressure was low at 88/57. After IV fluids, he normalized to 122/67. Pulse is 79. He is afebrile. Oxygen saturation is 97% on room air. GENERAL: He is a well-developed, well-nourished, pleasant white male, resting in bed. He is appropriately frustrated. HEAD, EYES, EARS, NOSE, AND THROAT: Unremarkable. NECK: Supple without mass or tenderness. LUNGS: Clear to auscultation. CARDIAC: Regular rate and rhythm. ABDOMEN: Protuberant. His midline incision is healing appropriately with nader still intact. Drain site in the right lower abdomen is nicely healed. Jejunostomy tube in the left upper abdomen has dressing intact. Bowel sounds are present and normoactive. EXTREMITIES: Unremarkable. ASSESSMENT: The patient with what appears to be a small bowel obstruction. This I suspect is a complication or related to his recent laparotomy. I suspect that he has the segment of small bowel that is adherent to the area of sigmoid colon repair. There was no evidence of any small bowel involvement. The patient had no prior surgery. I am hopeful that this can resolve with a course of conservative monitoring. In light of his malnutrition, may need to consider intravenous nutrition while waiting for this to resolve. For now, we will continue him on proton pump inhibitors and nausea medication. He will be encouraged to ambulate, although he tells me that he has not been moving much because of "back pain" as well as feeling weak. Job ID: [id number]
[2019-07-17] MEDS: D5 NS w/ 40 mEq KCl 1,000 ML IV SCH ×2 (05:11→13:31)
[2019-07-17 05:44] LABS: #Eosinphils 0.1 thou/uL (0.0-0.7); #Monocytes 0.5 thou/uL (0.11-0.59); #Neutrophils 3.8 thou/uL (1.40-6.50); %Basophils 0.7 % (0.0-1.0); %Lymphocytes 18.7 % (21.0-51.0); %Monocytes 8.4 % (0.0-10.0); %Neutrophils 71.2 % (42.0-75.0); Hemoglobin 7.9 g/dL (14.0-18.0); Mean Corpuscular HGB CONC 31.5 g/dL (32.0-36.0); Mean Corpuscular Hemoglobin 26.3 pg (27.0-31.0); Mean Corpuscular Volume 83.4 fL (78.0-98.0); Mean Platelet Volume 5.9 fL (7.4-10.4); Platelet Count 488 thou/uL (130-400); RBC Distribution Width 14.8 % (11.5-14.5); Red Blood Cell (RBC) Count 3.01 mill/uL (4.70-6.10); White Blood Cell (WBC) Count 5.3 thou/uL (4.8-10.8)
[2019-07-17 06:13] LABS: ALT (SGPT) 7 U/L (8-55); AST (SGOT) 11 U/L (5-34); Albumin 1.9 g/dL (3.4-4.8); Alkaline Phosphatase 53 U/L (40-110); Anion Gap 13 mmol/L (10-20); BUN (Urea Nitrogen) 16 mg/dL (8.4-25.7); Bilirubin, Total Less than 0.2 mg/dL (0.2-1.2); Calc. Creatinine Clearance 118 mL/min (70-130); Calcium 6.7 mg/dL (7.8-10.44); Carbon Dioxide 26 mmol/L (23-31); Chloride 98 mmol/L (98-107); Estimated GFR-MDRD Greater than 90; Globulin 2.3 g/dL (2.4-3.5); Glucose 123 mg/dL (83-110); Potassium 3.3 mmol/L (3.5-5.1); Protein, Total 4.2 g/dL (5.8-8.1); Sodium 134 mmol/L (136-145)
--- NOTE | 2019-07-17 08:34 | RAD ---
EXAM: XR Abdomen 1 View/KUB PROVIDED CLINICAL HISTORY: Follow-up small bowel obstruction COMPARISON: 07/16/2019 FINDINGS: Mildly dilated and distended gas-filled loops of small bowel are seen. The degree of small bowel dila tation appears mildly improved when compared to the prior exam. Gas is seen in the region of the ascending colon. Residual contrast is again seen within the urinary bladder. Midline skin clips are s een. Atelectasis is seen at each lung base. Postoperative changes left hip are again seen. No other interval change. IMPRESSION: Persistent dilated and distended gas-filled loops of small bowel which again may be related to ileus or partial small bowel obstruction. However, the degree of small bowel dilatation does appear improved from the prior study.
[2019-07-17] MEDS: Furosemide 20 MG TAB PO SCH (09:22)
[2019-07-17] MEDS: Pantoprazole 40 MG VIAL IVP SCH ×2 (09:22→20:30)
[2019-07-17] MEDS: Morphine 2 MG/ML SYRINGE SLOW IVP PRN ×4 (09:24→21:30)
[2019-07-17] MEDS: Lisinopril 5 MG TAB PO SCH (09:26)
[2019-07-17] MEDS: Carvedilol 25 MG TAB PO SCH ×2 (09:26→20:32)
[2019-07-17] MEDS ORDERED: Iopamidol 300 61% 50 ML VIAL FS ONE (10:25)
--- NOTE | 2019-07-17 10:44 | SPC ---
PICC PLACEMENT ULTRASOUND-GUIDED VENOUS ACCESS: (Peripherally inserted central catheter) DATE: 07/17/2019 HISTORY: 69-year-old male requires long-term IV access for total parenteral nutrition (TPN) due to bowel dysfu nction. TECHNIQUE: Catheter caliber: 5 Micronesian Catheter trim length:41 cm Catheter lumen number:double Catheter tip location:right atrium Vein accessed:left basilic Total fluoroscopy time: 5.2 min. Dose area product: 7224 mGy*cm^2 Signed, informed consent was obtained. A tourniquet was applied at the proximal aspect of the arm. Th e arm was prepped and draped in the usual sterile fashion. A 25-gauge needle was used to applied buffered lidocaine superficially. The vein was punctured with a 21-gauge micropuncture needle under u ltrasound guidance. A 0.018 inch guidewire was advanced through the micropuncture needle and into the vein. Under fluoroscopic guidance, the guidewire was advanced to the superior vena cava. The PICC was flushed and trimmed to the appropriate length. The micropuncture needle was exchanged over the guidewire for a 5 Micronesian peel-away dilator sheath. The dilator was exchanged over the guidewire for t he PICC, which was then further advanced under fluoroscopy. The sheath and guidewire were removed. The PICC was flushed again and secured in place at the arm after adjustment of tip position. The mesha ent tolerated the procedure well. There was no complication. IMPRESSION: Successful placement of PICC (peripherally inserted central catheter).
--- NOTE | 2019-07-17 15:20 | EKG ---
Test Reason : Blood Pressure : / mmHG Vent. Rate : 082 BPM Atrial Rate : 082 BPM P-R Int : 160 ms QRS Dur : 154 ms QT Int : 476 ms P-R-T Axes : 020 -11 162 degrees QTc Int : 556 ms Normal sinus rhythm Left bundle branch block Abnormal ECG Confirmed by NINFA JAMES DO ([id number]), commercial production editor CHRISTOPHER BRANCH ([id number]) on 07/17/2019 3:20:19 PM Referred By: Confirmed By:NINFA JAMES DO
[2019-07-17] MEDS: D5 0.9% NS w/ 20 mEq KCl 1,000 ML IV SCH (16:40)
[2019-07-17] MEDS: Loratadine 10 MG TAB PO SCH (20:31)
[2019-07-17] MEDS: Enoxaparin Sodium 40 MG/0.4 ML SYRINGE SC SCH (20:31)
[2019-07-17] MEDS ORDERED: [UNRECOGNIZED DRUG - OTHER] IV SCH ×2 (22:00)
[2019-07-17] MEDS ORDERED: SODIUM CHLORIDE IV SCH ×2 (22:00)
[2019-07-17] MEDS ORDERED: POTASSIUM CHLORIDE IV SCH ×2 (22:00)
[2019-07-17] MEDS ORDERED: SODIUM ACETATE IV SCH ×2 (22:00)
[2019-07-18] MEDS: Morphine 2 MG/ML SYRINGE SLOW IVP PRN ×5 (05:54→20:42)
[2019-07-18] MEDS: D5 0.9% NS w/ 20 mEq KCl 1,000 ML IV SCH (06:00)
[2019-07-18 06:23] LABS: INR-International Normal Ratio 1.1; Prothrombin Time 14.3 sec (12.0-14.7)
[2019-07-18 06:24] LABS: PTT 41.3 SEC (22.9-36.1)
[2019-07-18 06:30] LABS: ALT (SGPT) Less than 7 U/L (8-55); AST (SGOT) 11 U/L (5-34); Albumin 1.8 g/dL (3.4-4.8); Alkaline Phosphatase 51 U/L (40-110); Anion Gap 11 mmol/L (10-20); BUN (Urea Nitrogen) 11 mg/dL (8.4-25.7); Bilirubin, Total Less than 0.2 mg/dL (0.2-1.2); Calc. Creatinine Clearance 141 mL/min (70-130); Calcium 6.8 mg/dL (7.8-10.44); Carbon Dioxide 27 mmol/L (23-31); Cardiac Risk 2.9 (Less than 4.5); Chloride 102 mmol/L (98-107); Cholesterol 53 mg/dl (< 200 Desired); Estimated GFR-MDRD Greater than 90; Globulin 2.2 g/dL (2.4-3.5); Glucose 108 mg/dL (83-110); HDL Cholesterol 18 mg/dL (>60 Neg Risk); LDL Cholesterol, Calculated 25 mg/dL; Potassium 3.6 mmol/L (3.5-5.1); Sodium 136 mmol/L (136-145); Triglycerides 50 mg/dL (Less than 150)
[2019-07-18] MEDS ORDERED: Dextrose 50% Abboject 50 ML SYRINGE SLOW IVP PRN (08:19)
[2019-07-18] MEDS ORDERED: Insulin Regular 300 UNITS/3 ML VIAL SC PRN (08:19)
[2019-07-18] MEDS ORDERED: Dextrose 5% in Water 1,000 ML IV PRN (08:19)
[2019-07-18] MEDS: Carvedilol 25 MG TAB PO SCH ×2 (08:21→20:31)
[2019-07-18] MEDS: Furosemide 20 MG TAB PO SCH (08:21)
[2019-07-18] MEDS: Lisinopril 5 MG TAB PO SCH (08:21)
[2019-07-18] MEDS: Pantoprazole 40 MG VIAL IVP SCH ×2 (08:23→20:33)
--- NOTE | 2019-07-18 09:45 | PRG ---
DATE OF SERVICE: 07/18/2019 Mr. Rivera is in hospital day #3 following readmission for suspected small bowel obstruction. He has not vomited. He tells me he has had some bowel movements. He has not been receiving tube feeds through his jejunostomy. He has been ambulating minimally. He notes he still has some abdominal discomfort. Yesterday, a PICC line was placed by Radiology and TPN was initiated. He tells me he feels better today. PHYSICAL EXAMINATION: VITAL SIGNS: On examination, he is afebrile. Pulse 77, blood pressure 116/71. LUNGS: Clear to auscultation. ABDOMEN: Jsfyvo-fv-uvouahhhsd distended. He is diffusely mildly tender without any focal areas of tenderness. Bowel sounds are present and appear to be normoactive. EXTREMITIES: Unremarkable. LABORATORY DATA: His comprehensive metabolic panel shows normal electrolytes. His calcium is low at 6.8, and his phosphorus is low at 2.0. His albumin is quite low at 1.8 and his pre-albumin is less than 5.0. He did not have a CBC today. ASSESSMENT: The patient who appears to have a small bowel obstruction. It is possible that this is related to inflammatory changes from his recent repair of his colon perforation. Today, I will obtain a small-bowel follow-through using his jejunostomy tube. If the contrast goes through, then I will initiate tube feeds again. His malnutrition remains a substantial problem while awaiting the opportunity to proceed with surgery for his gastric outlet obstruction. Job ID: [id number]
--- NOTE | 2019-07-18 13:40 | RAD ---
Small bowel series: DATE: 07/18/2019 HISTORY: 69-year-old male with small bowel obstruction recently treated with surgery. Persistent abnormal jaylon l gas pattern. TECHNIQUE: After engineering librarian radiograph obtained, Gastrografin was injected into the jejunostomy tube. Serial overhead radiographs. FINDINGS: Midline skin nader. Penile implant. Total left hip replacement arthroplasty including metallic acet abular cup with multiple screws. Linear metallic plate and screws fixate the left acetabulum. The large amount of bowel gas throughout the abdomen on engineering librarian view. Initial immediate postinjection i mage demonstrates Gastrografin filling dilated jejunal loops in the left abdomen and midline. Contrast progresses to bowel loops in the right side of the abdomen at 30 minute image, but it is unc ertain whether or not some of this contrast is in the colon. Similar uncertainty at 1 hour. The 2 hour image demonstrates conclusive evidence of contrast material in the ascending colon and rectum. IMPRESSION: 1. No high-grade small bowel obstruction. 2. Dilated small bowel loops probably represent postoperative ileus.
[2019-07-18] MEDS: Enoxaparin Sodium 40 MG/0.4 ML SYRINGE SC SCH (20:31)
[2019-07-18] MEDS: Loratadine 10 MG TAB PO SCH (20:42)
[2019-07-18] MEDS: SODIUM CHLORIDE IV SCH (22:58)
[2019-07-18] MEDS: SODIUM ACETATE IV SCH (22:58)
[2019-07-18] MEDS: POTASSIUM CHLORIDE IV SCH (22:58)
[2019-07-18] MEDS: [UNRECOGNIZED DRUG - OTHER] IV SCH (22:58)
[2019-07-19] MEDS: Morphine 2 MG/ML SYRINGE SLOW IVP PRN ×5 (06:29→21:10)
[2019-07-19 06:39] LABS: #Eosinphils 0.1 thou/uL (0.0-0.7); #Monocytes 0.6 thou/uL (0.11-0.59); #Neutrophils 5.9 thou/uL (1.40-6.50); %Basophils 0.4 % (0.0-1.0); %Eosinophils 1.9 % (0.0-10.0); %Lymphocytes 12.5 % (21.0-51.0); %Monocytes 7.8 % (0.0-10.0); %Neutrophils 77.4 % (42.0-75.0); Hemoglobin 8.1 g/dL (14.0-18.0); Mean Corpuscular HGB CONC 31.2 g/dL (32.0-36.0); Mean Corpuscular Hemoglobin 26.4 pg (27.0-31.0); Mean Corpuscular Volume 84.5 fL (78.0-98.0); Platelet Count 442 thou/uL (130-400); Red Blood Cell (RBC) Count 3.07 mill/uL (4.70-6.10); White Blood Cell (WBC) Count 7.7 thou/uL (4.8-10.8)
[2019-07-19 07:16] LABS: ALT (SGPT) 7 U/L (8-55); AST (SGOT) 10 U/L (5-34); Albumin 2.1 g/dL (3.4-4.8); Alkaline Phosphatase 52 U/L (40-110); Anion Gap 8 mmol/L (10-20); BUN (Urea Nitrogen) 9 mg/dL (8.4-25.7); Bilirubin, Total Less than 0.2 mg/dL (0.2-1.2); Calc. Creatinine Clearance 160 mL/min (70-130); Calcium 7.5 mg/dL (7.8-10.44); Carbon Dioxide 30 mmol/L (23-31); Chloride 103 mmol/L (98-107); Estimated GFR-MDRD Greater than 90; Globulin 2.3 g/dL (2.4-3.5); Glucose 120 mg/dL (83-110); Magnesium 1.7 mg/dL (1.6-2.6); Phosphorus 1.3 mg/dL (2.3-4.7); Potassium 3.7 mmol/L (3.5-5.1); Protein, Total 4.4 g/dL (5.8-8.1); Sodium 137 mmol/L (136-145)
[2019-07-19] MEDS ORDERED: PHOS-NAK 1 PKT PACK PO SCH (07:30)
[2019-07-19] MEDS: Pantoprazole 40 MG VIAL IVP SCH ×2 (08:04→21:16)
[2019-07-19] MEDS: Carvedilol 25 MG TAB PO SCH ×2 (08:05→21:15)
[2019-07-19] MEDS: Lisinopril 5 MG TAB PO SCH (08:05)
[2019-07-19] MEDS: Furosemide 20 MG TAB PO SCH (08:05)
[2019-07-19] MEDS ORDERED: IRON SUCROSE COMPLEX 100 MG/5 ML SLOW IVP SCH (08:45)
[2019-07-19] MEDS ORDERED: Iron, Sodium Ferric Gluconate 125 MG in Sodium Chloride 0.9% 100 ML IVPB SCH (08:45)
--- NOTE | 2019-07-19 08:56 | PRG ---
DATE OF SERVICE: 07/19/2019 SUBJECTIVE: Mr. Rivera is hospital day #4 following readmission for suspected small bowel obstruction. Yesterday, a small-bowel follow-through was obtained, which showed no evidence of obstruction. Contrast was administered through his jejunostomy tube. He had multiple bowel movements after this. He tells me he in general feels well, although he did not sleep well last night and requires sleeping assistance. He has been receiving his TPN for the past day and a half. He was started on tube feeds at 40 mL/h yesterday and he tells me he is feeling well and tolerating this uneventfully. OBJECTIVE: VITAL SIGNS: On examination, he is afebrile. Pulse is 89, blood pressure 134/88. ABDOMEN: Soft, nontender, nondistended. Bowel sounds are present and normoactive. Midline incision is examined. Nader are still intact. He has one gap between nader where there appears to be some persistent healing. LABORATORY DATA: His CBC shows persistent anemia with a hemoglobin of 8.1. White blood cell count of 7.7. Chemistries show normal electrolytes. His phosphorus, however, is low at 1.3. Magnesium is normal at 1.7. Albumin is up slightly at 2.1. ASSESSMENT: He overall appears to be better. His obstructive issues appear to be resolved. In treatment of his underlying anemia, I will order some intravenous iron for today. Continue with TPN but probably discontinue that this evening and continue his tube feeds. I will institute Ensure Clear, so he is getting nutrition by mouth as well. If he remains stable, hopefully will be discharged home tomorrow. Job ID: [id number]
[2019-07-19] MEDS: Ondansetron PF 4 MG/2 ML Vial IVP PRN ×2 (12:16→18:16)
[2019-07-19] MEDS: D5 0.9% NS w/ 20 mEq KCl 1,000 ML IV SCH (13:15)
[2019-07-19] MEDS: Enoxaparin Sodium 40 MG/0.4 ML SYRINGE SC SCH (21:15)
[2019-07-19] MEDS: Zolpidem Tartrate 5 MG TAB PO PRN (21:15)
[2019-07-19] MEDS: Loratadine 10 MG TAB PO SCH (21:15)
[2019-07-19] MEDS ORDERED: Morphine 4 MG/ML VIAL SLOW IVP PRN (21:44)
[2019-07-19] MEDS: Promethazine HCl 12.5 MG in Sodium Chloride 0.9% 50 ML IVPB PRN (22:39)
[2019-07-19] MEDS: SODIUM CHLORIDE IV SCH (23:08)
[2019-07-19] MEDS: POTASSIUM CHLORIDE IV SCH (23:08)
[2019-07-19] MEDS: SODIUM ACETATE IV SCH (23:08)
[2019-07-19] MEDS: [UNRECOGNIZED DRUG - OTHER] IV SCH (23:08)
[2019-07-20 06:32] LABS: ALT (SGPT) 9 U/L (8-55); AST (SGOT) 30 U/L (5-34); Albumin 1.9 g/dL (3.4-4.8); Alkaline Phosphatase 62 U/L (40-110); Anion Gap 14 mmol/L (10-20); BUN (Urea Nitrogen) 13 mg/dL (8.4-25.7); Bilirubin, Total 0.4 mg/dL (0.2-1.2); Calc. Creatinine Clearance 151 mL/min (70-130); Calcium 7.6 mg/dL (7.8-10.44); Carbon Dioxide 21 mmol/L (23-31); Chloride 103 mmol/L (98-107); Estimated GFR-MDRD Greater than 90; Globulin 3.3 g/dL (2.4-3.5); Glucose 88 mg/dL (83-110); Magnesium 1.7 mg/dL (1.6-2.6); Phosphorus 1.2 mg/dL (2.3-4.7); Potassium 4.9 mmol/L (3.5-5.1); Protein, Total 5.2 g/dL (5.8-8.1); Sodium 133 mmol/L (136-145)
[2019-07-20] MEDS: Furosemide 20 MG TAB PO SCH (08:41)
[2019-07-20] MEDS: Carvedilol 25 MG TAB PO SCH ×2 (08:41→20:37)
[2019-07-20] MEDS: Pantoprazole 40 MG VIAL IVP SCH ×2 (08:41→20:38)
[2019-07-20] MEDS: Lisinopril 5 MG TAB PO SCH (08:41)
[2019-07-20] MEDS: Ondansetron PF 4 MG/2 ML Vial IVP PRN (11:26)
[2019-07-20] MEDS: D5 0.9% NS w/ 20 mEq KCl 1,000 ML IV SCH (11:32)
[2019-07-20] MEDS: Promethazine HCl 12.5 MG in Sodium Chloride 0.9% 50 ML IVPB PRN (12:42)
[2019-07-20] MEDS ORDERED: cefOXitin Sodium/Dextrose,Iso 2 GM in Premix Bag 1 BAG IVPB SCH (13:00)
[2019-07-20] MEDS ORDERED: cefOXitin 2 GM in Sodium Chloride 0.9% 100 ML IVPB SCH (13:15)
--- NOTE | 2019-07-20 15:30 | PRG ---
DATE OF SERVICE: 07/20/2019 SUBJECTIVE: Mr. Rivera is hospital day #5 following readmission for suspected small-bowel obstruction. His small-bowel obstruction had apparently resolved with small bowel follow-through study. Yesterday, I started him on tube feeds, which he seemed to be tolerating through the day. By nighttime, however, it was noted that he was bloated and complained of severe abdominal pain. He also felt severe nausea. At that time, his tube feeds were stopped. This morning, he tells me he feels much better. He never vomited. He believes he had two bowel movements yesterday. OBJECTIVE: VITAL SIGNS: On examination, he is afebrile. Pulse 94, blood pressure 113/75. LUNGS: Clear to auscultation. ABDOMEN: Mildly distended with normoactive bowel sounds. His midline incision, which is about 2-week-old, is draining a small amount of fluid. LABORATORY DATA: CBC was not obtained today. Chemistry profile reveals minor electrolyte abnormalities. His phosphorus is low at 1.2. His albumin is low at 1.9. ASSESSMENT: The patient with continued problems maintaining appropriate nutrition. 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 Unfortunately, he is also somewhat malnourished and is unable to tolerate tube feeds. My hope was that he will be able to be discharged home today for outpatient tube feeds to allow him to strengthen before proceeding with his gastric surgery. He clearly is not able to tolerate tube feeds. At this point, I believe there are two options. I could either leave him on TPN for another three or four weeks to help strengthen him prior to surgery or we could proceed with surgery tomorrow. I was hesitant to perform his gastric surgery at the time of his colon perforation secondary to the infectious and inflammatory issues. However, at this time, the infection has all entirely resolved. I am hopeful that there will not be such inflammatory response that would preclude me from proceeding with safe surgery. Either way, it appears that he has some degree of bowel obstruction, this prevented him from tolerating his tube feeds and this can be addressed. I had a lengthy discussion with the patient and his daughter regarding this. He tells me he would prefer to proceed with surgery at this time rather than wait for another 3 to 4 weeks. Plan will be to proceed with an antrectomy with likely Nicki-en-Y reconstruction. I discussed all this in detail with the patient as well as potential risks. He understands, agrees to proceed. Job ID: [id number]
[2019-07-20] MEDS: SODIUM CHLORIDE IV SCH (16:09)
[2019-07-20] MEDS: [UNRECOGNIZED DRUG - OTHER] IV SCH (16:09)
[2019-07-20] MEDS: SODIUM ACETATE IV SCH (16:09)
[2019-07-20] MEDS: POTASSIUM CHLORIDE IV SCH (16:09)
[2019-07-20] MEDS ORDERED: Potassium Phosphate 30 MMOL in Sodium Chloride 0.9% 500 ML IVPB SCH (18:15)
[2019-07-20] MEDS: Loratadine 10 MG TAB PO SCH (20:38)
[2019-07-20] MEDS: Zolpidem Tartrate 5 MG TAB PO PRN (20:38)
[2019-07-20] MEDS: Enoxaparin Sodium 40 MG/0.4 ML SYRINGE SC SCH (20:38)
[2019-07-21] MEDS: Morphine 2 MG/ML SYRINGE SLOW IVP PRN ×2 (03:32→08:42)
[2019-07-21 05:51] LABS: #Eosinphils 0.3 thou/uL (0.0-0.7); #Lymphocytes 1.3 thou/uL (1.20-3.40); #Monocytes 0.6 thou/uL (0.11-0.59); %Basophils 0.2 % (0.0-1.0); %Eosinophils 3.9 % (0.0-10.0); %Monocytes 7.3 % (0.0-10.0); %Neutrophils 72.7 % (42.0-75.0); Mean Corpuscular HGB CONC 31.7 g/dL (32.0-36.0); Mean Corpuscular Hemoglobin 26.7 pg (27.0-31.0); Mean Corpuscular Volume 84.1 fL (78.0-98.0); Mean Platelet Volume 6.5 fL (7.4-10.4); Platelet Count 308 thou/uL (130-400); RBC Distribution Width 15.3 % (11.5-14.5); Red Blood Cell (RBC) Count 2.63 mill/uL (4.70-6.10); White Blood Cell (WBC) Count 8.3 thou/uL (4.8-10.8)
[2019-07-21 06:19] LABS: ALT (SGPT) Less than 7 U/L (8-55); AST (SGOT) 13 U/L (5-34); Alkaline Phosphatase 48 U/L (40-110); Anion Gap 10 mmol/L (10-20); BUN (Urea Nitrogen) 14 mg/dL (8.4-25.7); Bilirubin, Total 0.2 mg/dL (0.2-1.2); Calc. Creatinine Clearance 154 mL/min (70-130); Calcium 7.2 mg/dL (7.8-10.44); Carbon Dioxide 25 mmol/L (23-31); Chloride 104 mmol/L (98-107); Estimated GFR-MDRD Greater than 90; Globulin 2.4 g/dL (2.4-3.5); Glucose 84 mg/dL (83-110); Iron 31 ug/dL (65-175); Magnesium 1.6 mg/dL (1.6-2.6); Phosphorus 4.1 mg/dL (2.3-4.7); Potassium 3.9 mmol/L (3.5-5.1); Protein, Total 4.4 g/dL (5.8-8.1); Sodium 135 mmol/L (136-145)
[2019-07-21] MEDS: Carvedilol 25 MG TAB PO SCH (08:43)
[2019-07-21] MEDS: Furosemide 20 MG TAB PO SCH (08:43)
[2019-07-21] MEDS: Lisinopril 5 MG TAB PO SCH (08:43)
[2019-07-21] MEDS: Pantoprazole 40 MG VIAL IVP SCH ×2 (08:44→21:04)
[2019-07-21] MEDS: D5 0.9% NS w/ 20 mEq KCl 1,000 ML IV SCH (11:19)
[2019-07-21] MEDS ORDERED: Fentanyl 100 MCG/2 ML VIAL ONE ×3 (12:25→17:57)
[2019-07-21] MEDS ORDERED: Phenylephrine 10 MG/ML VIAL ONE (12:26)
[2019-07-21] MEDS ORDERED: Albumin 5% 250 ML ONE (12:26)
[2019-07-21] MEDS ORDERED: Dexamethasone 4 mg/ml Vial ONE (12:26)
[2019-07-21] MEDS ORDERED: Lidocaine 2% Jelly 5 ML TUBE ONE (12:26)
[2019-07-21] MEDS ORDERED: cefOXitin Sodium/Dextrose,Iso 2 GM in Premix Bag 1 BAG IVPB SCH (15:15)
[2019-07-21] MEDS ORDERED: Calcium Chloride 1 GM/10 ML Abboject SYRINGE ONE (15:41)
[2019-07-21] MEDS ORDERED: PROPOFOL 200 MG/20 ML VIAL ONE (15:41)
[2019-07-21] MEDS ORDERED: EPINEPHrine 1 MG/10 ML Abboject SYRINGE ONE (15:41)
[2019-07-21] MEDS ORDERED: Lidocaine 1% PF 5 ML VIAL ONE (15:41)
[2019-07-21] MEDS ORDERED: PHENYLEPHRINE-NS 100 MCG/ML 10 ML SYRINGE ONE (15:41)
[2019-07-21] MEDS ORDERED: EPHEDRINE 25 MG/5 ML SYRINGE ONE (15:41)
[2019-07-21] MEDS ORDERED: Succinylcholine Chloride 20 MG/ML 10 ml SYRINGE FS ONE (15:41)
[2019-07-21] MEDS ORDERED: Dexamethasone 20 MG/5 ML VIAL ONE (15:42)
[2019-07-21] MEDS ORDERED: Ropivacaine 0.5% HCl/PF (150 MG/30 ML VIAL) ONE (15:42)
[2019-07-21] MEDS ORDERED: Sodium Chloride 0.9% 20 ML ONE (15:48)
[2019-07-21 17:23] LABS: Actual Bicarbonate (HCO3a) 22.1 mEq/L (22-28); Base Excess (BEa) -3.9 mEq/L (-2.0 to +3.0); Calcium, Ionized 1.18 mmol/L (1.12-1.30); Carboxyhemoglobin (COHb) 0.9 gm% (0.0-3.0); Potassium - ABG Lab 3.96 mmol/L (3.70-5.30); pH, Arterial 7.32 (7.35-7.45)
[2019-07-21 17:30] LABS: O2 Tension (PaO2), arterial 59.9 mmHg (> 70.0); Puncture Site ALINE
[2019-07-21] MEDS ORDERED: Propofol 1,000 MG/100 ML VIAL IV ONE (17:32)
[2019-07-21] MEDS: SODIUM CHLORIDE IV SCH (17:38)
[2019-07-21] MEDS: SODIUM ACETATE IV SCH (17:38)
[2019-07-21] MEDS: POTASSIUM CHLORIDE IV SCH (17:38)
[2019-07-21] MEDS: [UNRECOGNIZED DRUG - OTHER] IV SCH (17:38)
--- NOTE | 2019-07-21 17:43 | RAD ---
Exam: Chest one view HISTORY:Central line placement Comparison: 07/01/2019 FINDINGS: Lines and tubes: Endotracheal tube is in the right mainstem bronchus. There appear to be 2 separate r ight-sided vascular catheters which terminate over the expected region of the superior vena cava. Cardiac silhouette:Upper normal cardiac silhouette. Aorta: Atherosclerosis of the aorta Pulmonary vessels: Normal Costophrenic angles: Bilateral pleural effusions. LUNGS: Patchy interstitial and alveolar opacities predominantly in the lung bases. Pneumothorax: There is a right-sided pneumothorax. Osseous abnormalities: None IMPRESSION: 1. Right-sided pneumothorax 2. Endotracheal tube in the right mainstem bronchus 3. Pleural and parenchymal changes lung bases. 4. Results study discussed with Dr. Ahmadi 07/21/2019 at 5:41 PM Code CR Transcribed Date/Time: 07/21/2019 6:32 PM
[2019-07-21] MEDS ORDERED: Lidocaine 1% w/Epinephrine 1:100K 20 ML VIAL ONE (17:51)
[2019-07-21] MEDS ORDERED: Morphine 2 MG/ML SYRINGE SLOW IVP PRN (17:54)
[2019-07-21] MEDS ORDERED: Fentanyl BOLUS 250 ML IVPB PRN (17:54)
[2019-07-21] MEDS ORDERED: DISCONTINUE PREVIOUS NARCOTIC PAIN MEDICATIONS AND BENZODIAZEPINES FS SCH (17:54)
[2019-07-21] MEDS ORDERED: Propofol BOLUS 1,000 MG/100 ML VIAL IV PRN (17:54)
[2019-07-21] MEDS ORDERED: Lorazepam 2 MG/ML VIAL SLOW IVP PRN (17:54)
[2019-07-21 17:55] LABS: #Lymphocytes 0.5 thou/uL (1.20-3.40); #Monocytes 0.5 thou/uL (0.11-0.59); #Neutrophils 4.6 thou/uL (1.40-6.50); %Basophils 0.2 % (0.0-1.0); %Eosinophils 0.8 % (0.0-10.0); %Lymphocytes 8.2 % (21.0-51.0); %Monocytes 8.1 % (0.0-10.0); %Neutrophils 82.8 % (42.0-75.0); Hemoglobin 11.6 g/dL (14.0-18.0); Mean Corpuscular HGB CONC 32.7 g/dL (32.0-36.0); Mean Corpuscular Hemoglobin 28.2 pg (27.0-31.0); Mean Corpuscular Volume 86.4 fL (78.0-98.0); Mean Platelet Volume 6.5 fL (7.4-10.4); Platelet Count 300 thou/uL (130-400); RBC Distribution Width 15.3 % (11.5-14.5); White Blood Cell (WBC) Count 5.6 thou/uL (4.8-10.8)
[2019-07-21] MEDS ORDERED: Norepinephrine 8 MG/0.9% NS 250 ML ONE (17:55)
[2019-07-21] MEDS ORDERED: Norepinephrine 8 MG/0.9% NS 250 ML IVPB SCH (17:55)
[2019-07-21 18:14] LABS: Anion Gap 12 mmol/L (10-20); BUN (Urea Nitrogen) 13 mg/dL (8.4-25.7); Calc. Creatinine Clearance 163 mL/min (70-130); Calcium 7.5 mg/dL (7.8-10.44); Carbon Dioxide 21 mmol/L (23-31); Chloride 106 mmol/L (98-107); Estimated GFR-MDRD Greater than 90; Glucose 104 mg/dL (83-110); Potassium 4.1 mmol/L (3.5-5.1); Sodium 135 mmol/L (136-145)
[2019-07-21] MEDS ORDERED: Fentanyl 100 MCG/2 ML VIAL SLOW IVP SCH (18:15)
[2019-07-21] MEDS: fentaNYL Citrate/PF 2,000 MCG in Sodium Chloride 0.9% 60 ML IV SCH (18:28)
[2019-07-21] MEDS ORDERED: Lidocaine 1% (PF) 30 ML VIAL FS SCH (18:30)
--- NOTE | 2019-07-21 18:31 | RAD ---
Exam: Chest one view HISTORY:Pneumothorax Comparison: 07/21/2019 FINDINGS: Cardiac silhouette: Normal Interval repositioning of endotracheal tube which is now in the trachea. Interval placement of right- sided chest tube. Previously noted right-sided pneumothorax is less evident. Small right apical pneumothorax does remain. IMPRESSION: 1. Interval repositioning of an endotracheal tube which is now 3.4 cm above the lexis 2. Right-sided chest tube placement. Small right apical pneumothorax does remain.
[2019-07-21] MEDS: Lactated Ringer's 1,000 ML IV SCH (18:53)
[2019-07-21] MEDS: Enoxaparin Sodium 40 MG/0.4 ML SYRINGE SC SCH (21:03)
[2019-07-21] MEDS: Piperacillin/Tazobactam 3.375 GM in Sodium Chloride 0.9% 100 ML IVPB SCH (23:27)
[2019-07-22] MEDS ORDERED: Sodium Chloride 0.9% 1,000 ML IV SCH (00:15)
--- NOTE | 2019-07-22 00:35 | CON ---
DATE OF CONSULTATION: HISTORY OF PRESENT ILLNESS: Max Rivera is an unfortunate 69-year-old male, admitted to the OR today for surgery as I understand it for gastric outlet obstruction. He has had significant weight loss. Dense adhesions were encountered. Inadvertent enterotomies were created. He has had approximately 12 inches of small bowel resected per my discussion with Dr. Ahmadi and extensive lysis of adhesions, and then closure of the abdomen with retention sutures. The bowel was considered too friable to go on further with any surgery. PAST MEDICAL HISTORY: Remarkable for 1. Coronary artery disease with stenting in the past. 2. Lipid disorder. 3. Hypertension. 4. History of ulcer disease. 5. History of sigmoid colon perforation with a colonoscopy. 6. History of a hip replacement and a knee replacement on the left. 7. History of surgical arm fracture repair. 8. History of laparotomy for the sigmoid colon perforation, June 30. SOCIAL HISTORY: He is retired. He is a nonsmoker and nondrinker. ALLERGIES: NO DRUG ALLERGIES. MEDICATIONS: Prior to admission, he is on 1. Coreg. 2. Atorvastatin. 3. Lisinopril. 4. Protonix. 5. Zofran. REVIEW OF SYSTEMS: Not obtainable. PHYSICAL EXAMINATION: GENERAL: He is mechanically ventilated after surgery. VITAL SIGNS: Blood pressure is 95/55, heart rate is 103, respiratory rates in the teens per mechanical ventilation. He opens his eyes, looks around the room. HEENT: Sclerae are anicteric. NECK: Without lymphadenopathy. LUNGS: Clear. HEART: Regular rhythm. S1 and S2 are normal. ABDOMEN: Soft and bandaged. EXTREMITIES: Without asymmetry. LABORATORY DATA: White count 8.3, hemoglobin 7.0, platelets 308. Sodium 135, potassium 3.9, chloride 104, bicarb 25, BUN 14, and creatinine 0.56. Blood gas, pH 7.32, CO2 44, PO2 59, that was at 1717 hours. He did have a sinus arrest in the OR. He did not have metabolic acidosis of significant enough to cause sinus arrest. He only had a very brief period of chest compressions. He appears to be medically stable for now. TIME SPENT: This is a 70-minute consult, 50% of the time spent on the unit coordinating care. Job ID: [id number]
[2019-07-22 04:36] LABS: #Lymphocytes 0.9 thou/uL (1.20-3.40); #Monocytes 0.9 thou/uL (0.11-0.59); %Basophils 0.1 % (0.0-1.0); %Eosinophils 0.1 % (0.0-10.0); %Lymphocytes 6.8 % (21.0-51.0); %Monocytes 6.8 % (0.0-10.0); %Neutrophils 86.3 % (42.0-75.0); Hemoglobin 10.9 g/dL (14.0-18.0); Mean Corpuscular HGB CONC 32.8 g/dL (32.0-36.0); Mean Corpuscular Hemoglobin 28.2 pg (27.0-31.0); Mean Platelet Volume 7.1 fL (7.4-10.4); Platelet Count 320 thou/uL (130-400); RBC Distribution Width 15.4 % (11.5-14.5); Red Blood Cell (RBC) Count 3.85 mill/uL (4.70-6.10); White Blood Cell (WBC) Count 13.9 thou/uL (4.8-10.8)
[2019-07-22 05:08] LABS: ALT (SGPT) 7 U/L (8-55); AST (SGOT) 11 U/L (5-34); Albumin 1.9 g/dL (3.4-4.8); Alkaline Phosphatase 38 U/L (40-110); Anion Gap 11 mmol/L (10-20); BUN (Urea Nitrogen) 16 mg/dL (8.4-25.7); Bilirubin, Total 0.4 mg/dL (0.2-1.2); Calc. Creatinine Clearance 145 mL/min (70-130); Calcium 7.4 mg/dL (7.8-10.44); Carbon Dioxide 22 mmol/L (23-31); Chloride 105 mmol/L (98-107); Estimated GFR-MDRD Greater than 90; Globulin 2.2 g/dL (2.4-3.5); Glucose 215 mg/dL (83-110); Magnesium 1.7 mg/dL (1.6-2.6); Phosphorus 4.1 mg/dL (2.3-4.7); Potassium 4.1 mmol/L (3.5-5.1); Protein, Total 4.1 g/dL (5.8-8.1); Sodium 134 mmol/L (136-145)
[2019-07-22] MEDS: Piperacillin/Tazobactam 3.375 GM in Sodium Chloride 0.9% 100 ML IVPB SCH ×4 (05:41→23:19)
--- NOTE | 2019-07-22 07:56 | OP ---
DATE OF PROCEDURE: 07/21/2019 PREOPERATIVE DIAGNOSIS: Right pneumothorax. POSTOPERATIVE DIAGNOSIS: Right pneumothorax with large right pleural effusion. PROCEDURE PERFORMED: Placement of right-sided 28-Greenlandic chest tube. ANESTHESIA: 1% lidocaine with epinephrine. INDICATIONS FOR PROCEDURE: The patient had just returned from the operating room and was in the intensive care unit. Postop chest x-ray documents appropriate place of the left subclavian central line. However, he does have what appears to be a right-sided pneumothorax and chest tube placement was recommended by myself. DESCRIPTION OF PROCEDURE: Right chest was prepped with ChloraPrep and draped in sterile fashion. Local anesthetic was infiltrated using 1% lidocaine with epinephrine. Transverse incision was created just lateral to the nipple line. Dissection was carried through skin and subcutaneous tissue. Patient had a thick layer of subcutaneous fat. Additional local anesthetic was infiltrated as necessary, and the patient was administered a total of 100 mcg of fentanyl. I was able to carry blunt dissection between the ribs and into the pleural space. This was digitally palpated. A 28-Greenlandic chest tube was obtained and advanced through the ribs into the pleural space. As this was done, a large volume of pleural fluid drained out from the wound and on to the bed. The tube was placed to suction and another 500 mL of clear pleural fluid was removed in the chest tube. The total volume of the pleural fluid was probably about 1 L. The incision was partially closed with 0 silk and then another 0 silk was placed as a drain stitch. Dressing was fashioned from Xeroform gauze, gauze dressing and tape. There were no complications. The patient tolerated the procedure well. Postprocedure chest x-ray shows that the tube actually extends along the inferior aspect of the lung rather than superior. The lung, however, appears to be fully expanded and the effusion is fully aspirated. Job ID: [id number] [facility]
[2019-07-22] MEDS: Lactated Ringer's 1,000 ML IV SCH (09:37)
[2019-07-22] MEDS: Pantoprazole 40 MG VIAL IVP SCH ×2 (09:37→21:46)
[2019-07-22] MEDS: Furosemide 20 MG/2 ML VIAL SLOW IVP SCH (09:37)
--- NOTE | 2019-07-22 10:26 | PRG ---
DATE OF SERVICE: 07/22/2019 SUBJECTIVE: Max Rivera was evaluated today. He remains mechanically ventilated. He is awake. He moves all his extremities. He is complaining of some abdominal discomfort. OBJECTIVE: LUNGS: Clear anteriorly. HEART: Regular rhythm. ABDOMEN: Soft. LABORATORY DATA: Chest radiograph suggestive of a large effusion on the left versus an infiltrate. Intake and output positive 1977. White count 13.9, hemoglobin 10.9, and platelets 320. Sodium 134, potassium 4.1, chloride 105, bicarb 22, BUN 16, and creatinine 0.59. IMPRESSION: 1. Status post laparotomy with prolonged lysis of adhesions. 2. Gastric outlet obstruction. 3. Protein-calorie malnutrition. 4. Muscle weakness. On 5 of pressure support, 5 of PEEP. He shows signs of diaphragm dysfunction. I would prefer to wait one more day, reassess him in the morning, and if there is still a debate about pleural effusion versus infiltrate, noncontrast chest CT. If he has a large left effusion, I would favor tapping that, putting in a small drainage tube prior to extubation as he appears to have severe muscle weakness. CRITICAL CARE TIME: 30 minutes. Job ID: [id number]
--- NOTE | 2019-07-22 11:33 | PRG ---
DATE OF SERVICE: 07/22/2019 SUBJECTIVE: Mr. Rivera is postoperative day #1 from laparotomy and small bowel resection with extensive lysis of adhesions. He has a right-sided chest tube and left subclavian central line. He was on Levophed overnight, but this has been weaned off this morning. He is no longer requiring this to maintain his blood pressure. He is still on the ventilator, but he is alert and appropriately responsive and interactive. He denies specific pain at this time. He is on a low-dose propofol drip and is also on a fentanyl drip. He remains on TPN as well. PHYSICAL EXAMINATION: VITAL SIGNS: He is afebrile. His pulse is 93 and regular. His blood pressure currently is 101/59. LUNGS: Clear to auscultation anteriorly. CARDIAC: Regular rate and rhythm. ABDOMEN: Has a dressing intact with no bowel sounds. Has bilateral ARGELIA drains. One of these drains 370, another 245 since surgery. There are no bilious contents within the drains. His urine output was 605 mL since his surgery, which is a reasonable output. LABORATORY DATA: His comprehensive metabolic panel shows minor electrolyte abnormalities. Renal function is normal. Liver function tests are essentially normal. Albumin remains very low at 1.9. CBC shows a hemoglobin of 10.9. His hemoglobin yesterday morning was 7, and he was transfused with 3 units of blood before and during his surgery. His chest tube has a total output of 660 mL on the right side. ASSESSMENT: The patient is relatively stable following his surgery yesterday. He did have an arrest at the end of surgery, requiring CPR. His plans are to leave him on the ventilator for another day to allow him to appropriately recover from the surgery. His TPN and antibiotics will be continued. I will make some minor adjustments to his TPN today. I will have Wound Care come and see him regarding his open midline abdominal wound. Overall, he appears to be stable currently. Job ID: [id number]
[2019-07-22] MEDS: fentaNYL Citrate/PF 2,000 MCG in Sodium Chloride 0.9% 60 ML IV SCH (13:59)
[2019-07-22] MEDS: SODIUM CHLORIDE IV SCH (14:24)
[2019-07-22] MEDS: SODIUM ACETATE IV SCH (14:24)
[2019-07-22] MEDS: [UNRECOGNIZED DRUG - OTHER] IV SCH (14:24)
[2019-07-22] MEDS: POTASSIUM CHLORIDE IV SCH (14:24)
--- NOTE | 2019-07-22 14:57 | OP ---
DATE OF PROCEDURE: 07/16/2019 PREOPERATIVE DIAGNOSES: Abdominal wound leakage, small bowel obstruction, gastric outlet obstruction. POSTOPERATIVE DIAGNOSES: Fascial dehiscence, extremely dense intraabdominal adhesions, abnormal/weakened bowel integrity. PROCEDURES PERFORMED: Exploratory laparotomy with extensive lysis of adhesions (about 2-1/2 hours), segmental small bowel resection, repair of fascial dehiscence with placement of retention sutures, placement of left subclavian 7-Mongolian triple-lumen central line, administration of CPR with chest compressions and chemical resuscitation for 2 minutes at the end of the operation. ANESTHESIA: General endotracheal. INDICATIONS: The patient is a 69-year-old white male. He has recognized gastric outlet obstruction that has led to significant weight loss over the past 3 months. About 3 weeks previously, he underwent a laparotomy for repair of a sigmoid colon perforation. Attempts to provide nutrition for him using jejunal tube feeds subsequently have been unsuccessful as he develops obstructive symptoms. Additionally, he has progressive drainage from his abdominal wound with concerns regarding abdominal integrity. He is taken to the operating room at this time for evaluation of his bowel obstruction, evaluation of his fascial integrity, and hopefully plans to address the gastric outlet obstruction. DESCRIPTION OF OPERATION: Informed consent was obtained. The patient was taken to the operating room, where general endotracheal anesthesia was obtained with the patient in supine position. The abdomen was prepped with ChloraPrep and draped in sterile fashion. His jejunal feeding tube was prepped for the segment that was within the field and the rest of it was dangling off the side of the table. I had intentions of removing the feeding tube as the tube feeds were not working well. I therefore divided the external portion of the feeding tube and clamped the proximal end along the distal end to fall away. The skin nader were removed. Prior incision was reopened revealing a large undermined area of primary nonhealing. None of the fatty tissue between the skin and the fascia had approximated over a wide segment. Examination of the fascia revealed that there was a wide segment of fascial dehiscence with visible bowel. I turned my attention superiorly first. I extended the incision superiorly to an area above where surgery had been performed and carried dissection through fascia and entered the abdominal cavity. As I began to dissect inferiorly, attempting to gain access to the peritoneal cavity inferiorly, the small bowel immediately tore in 2 or 3 areas. The bowel integrity was clearly dramatically abnormal and required very little manipulation to tear or develop a serosal defect. That unfortunately began a 2 to 2-1/2 hour procedure, mobilizing the adhesions as carefully as I could from bilateral anterior abdominal wall. There were extensive dense adhesions. The worst of which appeared to be on the right lateral abdomen. This was surprising as no particular surgery had been done on the right side at the time of his prior colon perforation. Although, I had realized immediately that I would not be able to perform the gastric portion of his operation, I had a hope to minimize the amount of dissection I needed to do to try to identify the areas of injury and repair or resect them. Unfortunately, almost a full dissection became necessary in order to mobilize the areas that were damaged. They proved all be over a single segment of the small bowel that was the total length of a little over a foot in length. When I had mobilized all of it and identified all the areas of damaged bowel, I performed a double-stapled anastomosis proximal and distal to the areas of injury using a TEDDY 75 stapler. The mesentery was taken down using the LigaSure Impact and the specimen was passed off the field. The anastomosis was completely buttressed with multiple interrupted sutures of 3-0 silk. The mesenteric defect was closed with 3-0 Vicryl. I then copiously irrigated the abdominal contents with 4 L of saline, it was all aspirated. I was able to identify the segment of jejunum into which the jejunostomy tube entered and there was a segment of tube that was palpable, probably 7 cm in length within the small bowel. The divided segment of the jejunum was about 30 cm distal to the jejunostomy tube. I did visualize the area of the prior repair of the sigmoid colon and this repair was intact. There were at least two areas of serosal defect that were repaired with interrupted transversely placed sutures of 3-0 silk. I obtained two #19 round fluted drains and placed each of these in the upper abdomen, one on the right and one on the left, extending to the inferior aspect of the abdomen. I considered Seprafilm placement, but as that I placed this at the time of his last surgery and this did not help, so I decided not to place any Seprafilm at this time. The fascia was closed using a series of interrupted sutures of #1 Prolene placed in a [id number] fashion. I also placed 3 interrupted retention sutures of #2 nylon in a full-thickness fashion. The retention sutures were tied over retention bolsters. The skin edges were stapled at the superior aspect of the wound and underneath each retention bar. Dry gauze dressing was packed into the open areas of the wound between the retention sutures. A gauze dressing was placed externally including over the drain exit sites. Attention was then turned to the central line placement. Attention was turned first to the right side. The area was prepped and draped in usual fashion. An attempt was made to gain access into the subclavian vein. I was able to access this on a couple of occasions, but never could get the wire to thread appropriately. I attempted multiple times on the right side and finally decided that I could not access the subclavian vein, then switched my attention to the left side. Using the same sterile prep and drape, I was able to access the left subclavian vein. The first several attempts at passing the wire through this, however, led to going up the internal jugular vein. On the 4th or 5th time, however, I was able to get it to thread down into the superior vena cava down toward the heart. There was a momentary arrhythmia produced by the wire, and in a standard fashion, the wire was backed up. The catheter was placed over the wire and secured into place. As this was being secured, the patient went into asystole. He lost his pulse for a period of time. The catheter was quickly secured in place and a dressing was applied. As this was being done, CPR was initiated. CPR occurred both with chemical resuscitation with epinephrine as well as manual compressions. After a little bit less than 2 minutes, the compressions were held and the patient's rhythm was checked and he in fact did have a cardiac rhythm. He required no further compressions. I am certain that I heard ribs break as the CPR was occurring. The patient's vital signs stabilized with a heart rate of about 100 and a systolic blood pressure well over 100 and he was taken still intubated to the intensive care unit. He had been on a Levophed drip through much of the case to maintain appropriate blood pressure, this was left intact as he was taken to the intensive care unit. Blood loss was difficult to estimate. There was never any heavy bleeding, but overall there was probably several 100 mL of blood loss, probably 200 or 300. This was all from oozing. Two units of blood had been given in the operating room, in addition to 1 early this morning for a total transfusion of 3 units today. He was taken to the intensive care unit in critical condition. Job ID: [id number]
[2019-07-22] MEDS: Propofol 1,000 MG/100 ML VIAL IV PRN (17:05)
[2019-07-22] MEDS: Fluconazole In NaCl,Iso-Osm 200 MG in Premix Bag 1 BAG IVPB SCH (17:52)
[2019-07-22] MEDS: Enoxaparin Sodium 40 MG/0.4 ML SYRINGE SC SCH (21:46)
[2019-07-23] MEDS: Lactated Ringer's 1,000 ML IV SCH ×3 (00:53→18:02)
[2019-07-23] MEDS: fentaNYL Citrate/PF 2,000 MCG in Sodium Chloride 0.9% 60 ML IV SCH ×3 (04:02→15:12)
[2019-07-23 05:49] LABS: #Eosinphils 0.1 thou/uL (0.0-0.7); #Lymphocytes 1.5 thou/uL (1.20-3.40); #Monocytes 1.1 thou/uL (0.11-0.59); #Neutrophils 10.5 thou/uL (1.40-6.50); %Basophils 0.1 % (0.0-1.0); %Eosinophils 1.1 % (0.0-10.0); %Lymphocytes 11.6 % (21.0-51.0); %Neutrophils 79.2 % (42.0-75.0); Hemoglobin 9.2 g/dL (14.0-18.0); Mean Corpuscular HGB CONC 31.4 g/dL (32.0-36.0); Mean Corpuscular Hemoglobin 27.3 pg (27.0-31.0); Mean Platelet Volume 6.9 fL (7.4-10.4); Platelet Count 289 thou/uL (130-400); RBC Distribution Width 16.3 % (11.5-14.5); Red Blood Cell (RBC) Count 3.36 mill/uL (4.70-6.10); White Blood Cell (WBC) Count 13.2 thou/uL (4.8-10.8)
[2019-07-23 06:32] LABS: ALT (SGPT) Less than 7 U/L (8-55); AST (SGOT) 11 U/L (5-34); Albumin 1.8 g/dL (3.4-4.8); Alkaline Phosphatase 49 U/L (40-110); Anion Gap 9 mmol/L (10-20); BUN (Urea Nitrogen) 16 mg/dL (8.4-25.7); Bilirubin, Total 0.3 mg/dL (0.2-1.2); Calc. Creatinine Clearance 155 mL/min (70-130); Calcium 7.6 mg/dL (7.8-10.44); Carbon Dioxide 25 mmol/L (23-31); Chloride 105 mmol/L (98-107); Estimated GFR-MDRD Greater than 90; Globulin 2.5 g/dL (2.4-3.5); Glucose 101 mg/dL (83-110); Magnesium 1.8 mg/dL (1.6-2.6); Phosphorus 4.2 mg/dL (2.3-4.7); Potassium 4.2 mmol/L (3.5-5.1); Protein, Total 4.3 g/dL (5.8-8.1); Sodium 135 mmol/L (136-145)
[2019-07-23] MEDS: Piperacillin/Tazobactam 3.375 GM in Sodium Chloride 0.9% 100 ML IVPB SCH ×3 (06:33→17:58)
[2019-07-23 08:56] LABS: Actual Bicarbonate (HCO3a) 22.8 mEq/L (22-28); Base Excess (BEa) -0.7 mEq/L (-2.0 to +3.0); Carboxyhemoglobin (COHb) 0.7 gm% (0.0-3.0); Hemoglobin (Hb) 11.4 g/dL (14.0-18.0); O2 Tension (PaO2), arterial 110.5 mmHg (> 70.0); pH, Arterial 7.45 (7.35-7.45)
[2019-07-23 08:57] LABS: Analyzer IN Cardio OR; Calcium, Ionized 1.18 mmol/L (1.12-1.30); Potassium - ABG Lab 3.89 mmol/L (3.70-5.30)
[2019-07-23] MEDS: Propofol 1,000 MG/100 ML VIAL IV PRN (09:51)
[2019-07-23] MEDS: Furosemide 20 MG/2 ML VIAL SLOW IVP SCH (11:22)
[2019-07-23] MEDS: Pantoprazole 40 MG VIAL IVP SCH ×2 (11:22→21:51)
--- NOTE | 2019-07-23 13:04 | RAD ---
EXAM: CHEST ONE VIEW HISTORY: On ventilator. Follow-up evaluation. COMPARISON: 07/21/2019 FINDINGS: Endotracheal tube, nasogastric tube, left-sided PICC and left subclavian central venous catheter as w ell as right-sided thoracostomy tube remain in place and unchanged in position. Multiple integration lead leads overlie the chest. Cardiac silhouette is magnified by projection. Elevation right hemid iaphragm is present. No definite pneumothorax is visualized. Increased interstitial and alveolar opacities seen in the left perihilar location which may be related to developing pneumonia. Mild atel ectasis is present at the medial right lung base.. No other interval change. IMPRESSION: 1. Lines and tubes remain stable in position. 2. Right-sided thoracostomy tube unchanged in position, and no definite pneumothorax is appreciated o n this exam. Subcutaneous emphysema on the right has improved. 3. Interstitial and alveolar opacities left perihilar location and greater at the left lung base. Fin dings may be related to developing pneumonia. Follow-up to complete resolution is recommended.
[2019-07-23] MEDS: POTASSIUM CHLORIDE IV SCH (15:06)
[2019-07-23] MEDS: [UNRECOGNIZED DRUG - OTHER] IV SCH (15:06)
[2019-07-23] MEDS: SODIUM ACETATE IV SCH (15:06)
[2019-07-23] MEDS: SODIUM CHLORIDE IV SCH (15:06)
[2019-07-23] MEDS: Morphine 4 MG/ML VIAL SLOW IVP PRN ×3 (16:00→22:26)
--- NOTE | 2019-07-23 16:40 | PRG ---
DATE OF SERVICE: SUBJECTIVE: Mr. Rivera remains in the intensive care unit. He was extubated earlier today. He is currently complaining of diffuse pain involving his chest, his back, and his abdomen. He is postoperative day #2 from a laparotomy and small bowel resection with extensive lysis of adhesions. He still has a right-sided chest tube. He has been off Levophed today. OBJECTIVE: VITAL SIGNS: On examination, he is afebrile, although his maximum temperature is 100.1. Pulse is between 100 and 127. He has been more tachycardic since he got extubated. His current blood pressure is 140/80. He has not had significant hypotension today. His urine output for yesterday was 1200 mL. His two ARGELIA drains drained 230 and 120 mL respectively. His chest tube put out 250 mL. LUNGS: Clear to auscultation anteriorly. He does have some coarse breath sounds when he attempts to cough and he has a very weak cough. He appears to have paradoxical or dyssynchronous chest movement that I suspect is because of his fractures of his ribs associated with CPR. ABDOMEN: He has a wound VAC over the midline abdominal wound. Bowel sounds are not appreciated. There is mild diffuse tenderness. The drain output is serosanguineous with no evidence of bilious or enteric material. EXTREMITIES: He has severe diffuse edema. LABORATORY DATA: His electrolytes are essentially normal as is his magnesium and phosphorus. His sugars have been well controlled. Albumin remains low at 1.8. ASSESSMENT: The patient is status post exploratory laparotomy and small bowel resection. He still has a gastric outlet obstruction which will prevent him from taking a substantial oral intake. I am not certain at all that I have treated his obstructive process because of the severity of his intraabdominal adhesions. For now, I would recommend continuation of IV antibiotics and TPN as well as wound care. The wound VAC has been placed. Pulmonary Medicine will continue to manage his pulmonary status. I am concerned that he may fail this attempted extubation and require re-intubation. Job ID: [id number]
[2019-07-23] MEDS: Fluconazole In NaCl,Iso-Osm 200 MG in Premix Bag 1 BAG IVPB SCH (18:26)
--- NOTE | 2019-07-23 21:37 | PRG ---
DATE OF SERVICE: 07/23/2019 SUBJECTIVE: Mr. Rivera was evaluated this morning. He was doing well. He subsequently was extubated. He does have chest wall dyssynchrony, because of rib fractures that occurred during CPR, but he denies being in any distress. I discussed with Dr. Ahmadi and we plan to place him on just a little BiPAP at night, so he gets some muscle rest. OBJECTIVE: VITAL SIGNS: Heart rate is 115, blood pressure is 127/74. This evening respiratory rates in the 20s. LUNGS: Clear. HEART: Regular rhythm. ABDOMEN: Soft. LABORATORY DATA: White count 13.2, hemoglobin 9.2, platelets 289. Sodium 135, potassium 4.2, chloride 105, bicarb 25, BUN 16, creatinine 0.55. IMPRESSION: 1. Status post laparotomy. 2. Status post brief code. 3. Pneumothorax on the right with chest tube in place. This did not have an air leak when I looked this morning. 4. Status post resection of a small segment of small bowel. 5. Preop malnutrition secondary to gastric outlet obstruction requiring TPN. We will continue to follow. Critical care time 30 min. Job ID: [id number] [id number]
[2019-07-23] MEDS: Enoxaparin Sodium 40 MG/0.4 ML SYRINGE SC SCH ×2 (21:50→21:55)
[2019-07-24] MEDS: Piperacillin/Tazobactam 3.375 GM in Sodium Chloride 0.9% 100 ML IVPB SCH ×5 (00:45→23:51)
[2019-07-24] MEDS: Morphine 4 MG/ML VIAL SLOW IVP PRN ×5 (02:09→23:52)
[2019-07-24] MEDS: Lactated Ringer's 1,000 ML IV SCH ×2 (03:53→18:13)
[2019-07-24 07:57] LABS: #Eosinphils 0.3 thou/uL (0.0-0.7); #Lymphocytes 1.2 thou/uL (1.20-3.40); #Monocytes 0.9 thou/uL (0.11-0.59); #Neutrophils 12.6 thou/uL (1.40-6.50); %Basophils 0.1 % (0.0-1.0); %Eosinophils 2.2 % (0.0-10.0); %Monocytes 5.7 % (0.0-10.0); Mean Corpuscular HGB CONC 31.2 g/dL (32.0-36.0); Mean Corpuscular Hemoglobin 27.2 pg (27.0-31.0); Mean Platelet Volume 6.8 fL (7.4-10.4); Platelet Count 232 thou/uL (130-400); Red Blood Cell (RBC) Count 3.69 mill/uL (4.70-6.10)
[2019-07-24 08:14] LABS: ALT (SGPT) 13 U/L (8-55); AST (SGOT) 16 U/L (5-34); Albumin 1.9 g/dL (3.4-4.8); Alkaline Phosphatase 51 U/L (40-110); Anion Gap 11 mmol/L (10-20); BUN (Urea Nitrogen) 14 mg/dL (8.4-25.7); Bilirubin, Total 0.3 mg/dL (0.2-1.2); Calc. Creatinine Clearance 167 mL/min (70-130); Calcium 7.7 mg/dL (7.8-10.44); Carbon Dioxide 25 mmol/L (23-31); Chloride 102 mmol/L (98-107); Estimated GFR-MDRD Greater than 90; Globulin 2.6 g/dL (2.4-3.5); Glucose 102 mg/dL (83-110); Magnesium 1.7 mg/dL (1.6-2.6); Potassium 4.5 mmol/L (3.5-5.1); Protein, Total 4.5 g/dL (5.8-8.1); Sodium 133 mmol/L (136-145)
--- NOTE | 2019-07-24 08:53 | RAD ---
CHEST 1 VIEW PORTABLE: Date: 07/24/2019 HISTORY: Respiratory insufficiency. COMPARISON: NG tube and endotracheal tubes have been removed. Right chest tube and left subclavian catheters in p lace. Stable patchy parenchymal changes in the left lower lobe with some right hemidiaphragm elevatio n and costophrenic angle blunting. IMPRESSION: Removal of the NG tube and endotracheal tubes. Otherwise overall stable chest. Continue short-term fo llow-up. POS: [facility]
[2019-07-24] MEDS: Furosemide 20 MG/2 ML VIAL SLOW IVP SCH (08:54)
[2019-07-24] MEDS: Pantoprazole 40 MG VIAL IVP SCH ×2 (09:00→22:27)
[2019-07-24] MEDS: fentaNYL Citrate/PF 2,000 MCG in Sodium Chloride 0.9% 60 ML IV SCH (11:44)
--- NOTE | 2019-07-24 12:02 | PRG ---
DATE OF SERVICE: 07/24/2019 SUBJECTIVE: Mr. Rivera remains in the Intensive Care Unit. He was extubated yesterday and he remains extubated currently. He tells me he is breathing better today than he did yesterday. BiPAP was attempted overnight, but patient states he did not it tolerate well. He denies any acute shortness of breath. Nasogastric tube was removed yesterday. He denies nausea or vomiting. He notes appropriate discomfort from his rib fractures caused by his CPR, his abdominal surgery, his right chest tube. He has not gotten out of bed yet. On examination today, he is afebrile. His pulse is 102, blood pressure 134/75. His urine output for yesterday was 2700 mL. His ARGELIA has drained 60 and 20 mL respectively. His chest tube drained 400 mL. His lungs are clear to auscultation bilaterally. His abdomen has drains bilateral that are draining serosanguineous fluid. There is no bowel sounds. He has a wound VAC over his midline wound. He does have retention sutures under the wound VAC. LABORATORY DATA: His hemoglobin level remained stable at 10. His white blood cell count is 15. His chemistry profile reveals essentially normal electrolytes. His phosphorus is slightly elevated at 5. Albumin went up slightly to 1.9. ASSESSMENT: Overall, he is stable following his recent laparotomy and small bowel resection. He is tolerating extubation thus far. His paradoxical chest movement is shown as potential complicate his respiratory recovery, but he is tolerating it thus far. I will revise his TPN today to correct for his phosphorus. He can also start taking some ice chips by mouth. I encouraged him to begin with physical therapy including getting out of bed. The chest tube will be placed to water seal tonight and hopefully plan on removing in the morning. Job ID: [id number]
--- NOTE | 2019-07-24 13:19 | PRG ---
DATE OF SERVICE: 07/24/2019 SUBJECTIVE: Mr. Rivera did not tolerate BiPAP. He says he could not stand the pressure. He still has sternal retraction and paradoxical movement with respiration secondary to sternal fractures. Denies being short of breath. He is not febrile. OBJECTIVE: VITAL SIGNS: Blood pressure has been stable. Last blood pressure this morning is 156/93. Intake and outputs positive 241. LUNGS: Clear. HEART: Regular rhythm. ABDOMEN: Soft. EXTREMITIES: He has lower extremity edema. IMPRESSION: 1. Anasarca secondary to malnutrition secondary to gastric outlet obstruction. 2. Status post complicated laparotomy. 3. Sternal fracture secondary to a brief cardiopulmonary resuscitation in the operating room. 4. Left pleural effusion, not symptomatic. 5. Pneumothorax. Chest tube is going to water seal today. 6. Status post resection of a short segment of small bowel. Overall appears to be stable. Job ID: [id number]
[2019-07-24] MEDS ORDERED: SODIUM ACETATE IV SCH (14:00)
[2019-07-24] MEDS ORDERED: POTASSIUM CHLORIDE IV SCH (14:00)
[2019-07-24] MEDS ORDERED: SODIUM CHLORIDE IV SCH (14:00)
[2019-07-24] MEDS ORDERED: [UNRECOGNIZED DRUG - OTHER] IV SCH (14:00)
[2019-07-24] MEDS: [UNRECOGNIZED DRUG - OTHER] IV SCH (14:22)
[2019-07-24] MEDS: SODIUM ACETATE IV SCH (14:22)
[2019-07-24] MEDS: SODIUM CHLORIDE IV SCH (14:22)
[2019-07-24] MEDS: POTASSIUM CHLORIDE IV SCH (14:22)
[2019-07-24] MEDS: Fluconazole In NaCl,Iso-Osm 200 MG in Premix Bag 1 BAG IVPB SCH (18:05)
[2019-07-24] MEDS: Enoxaparin Sodium 40 MG/0.4 ML SYRINGE SC SCH (22:27)
[2019-07-25] MEDS: Piperacillin/Tazobactam 3.375 GM in Sodium Chloride 0.9% 100 ML IVPB SCH ×3 (05:57→17:30)
--- NOTE | 2019-07-25 08:22 | RAD ---
CHEST ONE VIEW: HISTORY: Respiratory insufficiency. COMPARISON: 07/24/2019 IMPRESSION: Stable right hemidiaphragm elevation with right chest tube in place with some patchy pleural and pare nchymal changes in the left mid and lower lung zone and right base. No significant new process. POS: [facility]
[2019-07-25] MEDS ORDERED: Albumin 25% 25 GM/100 ML BOT IVPB SCH (08:23)
[2019-07-25] MEDS: Lactated Ringer's 1,000 ML IV SCH (08:45)
[2019-07-25] MEDS: Pantoprazole 40 MG VIAL IVP SCH ×2 (08:54→22:08)
[2019-07-25] MEDS: Furosemide 20 MG/2 ML VIAL SLOW IVP SCH ×3 (09:19→22:08)
[2019-07-25] MEDS: Morphine 4 MG/ML VIAL SLOW IVP PRN ×3 (10:42→20:16)
[2019-07-25 10:51] LABS: INR-International Normal Ratio 1.1; PTT 41.4 SEC (22.9-36.1); Prothrombin Time 14.3 sec (12.0-14.7)
--- NOTE | 2019-07-25 13:11 | PRG ---
DATE OF SERVICE: 07/25/2019 SUBJECTIVE: Nicole has no new complaints. His chest tube output has been fairly copious. He has filled up Pleur-Evac now. He was about to be changed when I made rounds. He had no new complaints. He still has sternal instability. OBJECTIVE: LUNGS: He has equal breath sounds. HEART: Regular rhythm. ABDOMEN: Soft. We will get him an incentive spirometer. LABORATORY DATA: White count 15, hemoglobin 10, platelets 232. Sodium , potassium 4.5, chloride 102, bicarb 25, BUN 14, and creatinine 0.5. IMPRESSION: 1. Status post complicated laparotomy. 2. Hypoalbuminemia leading to anasarca. We will suspect this chest tube output would not decrease until his albumin is close to 3. 3. Sternal instability after CPR. He is not having any issues with retained secretions so far. Job ID: [id number]
[2019-07-25] MEDS ORDERED: Sterile Water 10 ML VIAL IVP SCH ×2 (13:28→16:45)
[2019-07-25] MEDS ORDERED: Activase 2 MG VIAL CATH SCH ×2 (13:28→16:45)
[2019-07-25] MEDS: POTASSIUM CHLORIDE IV SCH (14:37)
[2019-07-25] MEDS: Albumin 25% 25 GM/100 ML BOT IVPB SCH ×2 (14:37→21:55)
[2019-07-25] MEDS: [UNRECOGNIZED DRUG - OTHER] IV SCH (14:37)
[2019-07-25] MEDS: SODIUM CHLORIDE IV SCH (14:37)
[2019-07-25] MEDS: SODIUM ACETATE IV SCH (14:37)
[2019-07-25] MEDS: Fluconazole In NaCl,Iso-Osm 200 MG in Premix Bag 1 BAG IVPB SCH (17:31)
[2019-07-25] MEDS: Enoxaparin Sodium 40 MG/0.4 ML SYRINGE SC SCH (22:08)
--- NOTE | 2019-07-25 22:35 | PRG ---
DATE OF SERVICE: 07/25/2019 SUBJECTIVE: The patient remains on the intensive care unit. The patient is awake, alert, in no distress. The patient continues to have a right-sided chest tube to water-seal. The patient's output overnight was 230 mL. The patient's urinary output has been adequate. The patient is not requiring any vasopressors. The patient has a left ARGELIA drain that has put out 10 mL overnight and a right ARGELIA drain that has put out another 10 mL, draining serosanguineous fluid. The patient continues to have a wound VAC over his midline wound. OBJECTIVE: VITAL SIGNS: Temperature 99.2, SpO2 of 96% on 2 L nasal cannula, heart rate 104, blood pressure 135/77, and respirations 22. LABORATORY DATA: There are no new labs to evaluate today. IMAGING DATA: Chest x-ray, impression; stable right hemidiaphragm elevation with right chest tube in place with some patchy pleural and parenchymal changes in the left mid and lower lung zone and right base. ASSESSMENT: 1. Status post laparotomy and small-bowel resection for gastric outlet obstruction. 2. Severe malnutrition. 3. Rib fractures, status post CPR with chest compressions. 4. Right pneumothorax, status post central line placement. PLAN: Continue right-sided chest tube to water seal at this time. Continue TPN. Increase physical and occupational therapy. Have patient up and out of the bed as much as possible. We will give albumin 12.5 g, followed by Lasix 3 times a day. The patient was examined by Dr. Britt during morning rounds. Job ID: [id number]
[2019-07-26] MEDS: Piperacillin/Tazobactam 3.375 GM in Sodium Chloride 0.9% 100 ML IVPB SCH ×4 (02:18→17:49)
[2019-07-26] MEDS: fentaNYL Citrate/PF 2,000 MCG in Sodium Chloride 0.9% 60 ML IV SCH (02:41)
--- NOTE | 2019-07-26 04:10 | PRG ---
DATE OF SERVICE: 07/25/2019 SUBJECTIVE: The patient was seen this evening during rounds. He was sitting up in bed, resting comfortably with no signs of acute distress. Nursing reported no acute events. He is receiving 12.5 g of 25% albumin x3 followed by 20 mg of Lasix IV x3 overnight to diurese him. Chest tube is still in place to water seal. There is serosanguineous output. There is no air leak. OBJECTIVE: VITAL SIGNS: Temperature 99.1, pulse 102, respirations 27, oxygen saturation 100% on room air, and blood pressure 150/79. ASSESSMENT: 1. Postoperative day 9, status post exploratory laparotomy, extensive lysis of adhesions, segmental small-bowel resection, repair of fascial dehiscence with retention sutures. 2. Gastric outlet obstruction. 3. Severe malnutrition. 4. Rib fractures from compressions. 5. Right-sided pneumothorax, status post chest tube placement. PLAN: Continue current diet and pain regimen. Continue chest tube to water seal. Repeat chest x-ray in the morning. The patient needs to be up and out of the bed and into a neuro chair daily. Dr. Britt in the Trauma team will re-evaluate the patient in the morning. Job ID: [id number]
[2019-07-26] MEDS ORDERED: Activase 2 MG VIAL CATH SCH (07:45)
[2019-07-26] MEDS: Albumin 25% 25 GM/100 ML BOT IVPB SCH ×2 (08:21→14:40)
[2019-07-26] MEDS: Furosemide 20 MG/2 ML VIAL SLOW IVP SCH ×3 (08:21→20:54)
[2019-07-26] MEDS: Morphine 4 MG/ML VIAL SLOW IVP PRN (08:22)
[2019-07-26] MEDS: Pantoprazole 40 MG VIAL IVP SCH ×2 (08:24→20:54)
[2019-07-26] MEDS ORDERED: fentaNYL Citrate/PF 2,000 MCG in Sodium Chloride 0.9% 60 ML IV PRN (09:24)
[2019-07-26] MEDS ORDERED: Zolpidem Tartrate 5 MG TAB PO PRN (09:24)
[2019-07-26] MEDS ORDERED: diphenhydrAMINE 25 MG CAP PO PRN (09:24)
[2019-07-26] MEDS ORDERED: diphenhydrAMINE 50 MG/ML VIAL IVP PRN (09:24)
[2019-07-26] MEDS ORDERED: Naloxone HCl 0.4 mg/ml Vial IV PRN (09:24)
[2019-07-26] MEDS ORDERED: diphenhydrAMINE 50 MG/ML VIAL IM PRN (09:24)
[2019-07-26 09:27] LABS: Anion Gap 11 mmol/L (10-20); BUN (Urea Nitrogen) 20 mg/dL (8.4-25.7); Calc. Creatinine Clearance 161 mL/min (70-130); Calcium 8.3 mg/dL (7.8-10.44); Carbon Dioxide 28 mmol/L (23-31); Chloride 100 mmol/L (98-107); Estimated GFR-MDRD Greater than 90; Glucose 103 mg/dL (83-110); Magnesium 1.9 mg/dL (1.6-2.6); Phosphorus 3.6 mg/dL (2.3-4.7); Potassium 3.4 mmol/L (3.5-5.1); Sodium 136 mmol/L (136-145)
--- NOTE | 2019-07-26 09:29 | PRG ---
DATE OF SERVICE: 07/26/2019 SUBJECTIVE: Mr. Rivera is lying in bed. He has a fairly profound flail chest and looks to be having tachypnea and pain. PHYSICAL EXAMINATION: VITAL SIGNS: Temperature 98.7, pulse 103, blood pressure 134/82, and O2 saturation 100%. HEENT: Unremarkable. NECK: No JVD. CHEST: Flail chest noted. Diminished breath sounds at both bases. CARDIAC: S1 and S2, slightly tachycardic. ABDOMEN: Midline surgical scar noted. EXTREMITIES: No clubbing or cyanosis. LABORATORY DATA: I do not see any laboratory testing that was done today. No cultures have grown. ASSESSMENT: 1. Flail chest after CPR. 2. Right pneumothorax. 3. Status post laparotomy. PLAN: 1. Pain control. 2. BiPAP b.i.d. to help prevent atelectasis. 3. Labs have been drawn today, results of which are pending. Job ID: [id number]
[2019-07-26] MEDS ORDERED: Communication Order-Pharmacy FS SCH (09:30)
--- NOTE | 2019-07-26 10:30 | RAD ---
CHEST 1 VIEW: HISTORY: Respiratory insufficiency. FINDINGS/IMPRESSION: Small redeveloping right-sided pneumothorax since the prior study of 07/24. Right chest tube in place . Progressive alveolar opacity changes in the left mid and lower lung zone. POS: [facility]
[2019-07-26] MEDS: [UNRECOGNIZED DRUG - OTHER] IV SCH (14:40)
[2019-07-26] MEDS: SODIUM CHLORIDE IV SCH (14:40)
[2019-07-26] MEDS: POTASSIUM CHLORIDE IV SCH (14:40)
[2019-07-26] MEDS: SODIUM ACETATE IV SCH (14:40)
[2019-07-26] MEDS: Lactated Ringer's 1,000 ML IV SCH ×2 (15:28→16:00)
--- NOTE | 2019-07-26 16:21 | PRG ---
DATE OF SERVICE: 07/26/2019 SUBJECTIVE: The patient is currently on the critical care unit. He is postop day 10 status post exploratory laparotomy due to gastric outlet obstruction. The patient's case has been complicated by cardiorespiratory arrest requiring chest compressions, which resulted in a right-sided pneumothorax and flail chest. The patient has been extubated. He still has a chest tube in place and is on TPN at this time. The patient this morning reports that his pain is much better controlled. He appears more alert per the nursing staff. The patient has been diuresed and given albumin overnight. The patient is tolerating his tube feeds. He has not had a bowel movement yet. PHYSICAL EXAMINATION: VITAL SIGNS: Temperature is 99.1, heart rate 102, blood pressure 134/82, oxygen saturations 100%. GENERAL: The patient is resting comfortably in bed. He is awake, conversant, appropriate. LUNGS: Have scattered rhonchi bilaterally, more on the right. The patient also is noted to have paradoxical movement on the right consistent with a flail chest. HEART: Tachycardic. ABDOMEN: Midline incision is clean, dry, and intact. EXTREMITIES: Neurovascularly intact with 1 to 2+ pitting edema of the lower extremities. LABORATORY DATA: This morning, sodium 136, potassium 3.4, chloride 100, CO2 of 28, BUN 20, creatinine 0.53, glucose 103, magnesium 1.9, and phosphorus 3.6. RADIOGRAPHS: AP chest x-ray shows a redeveloping right-sided pneumothorax. ASSESSMENT: 1. Postop day 10 status post exploratory laparotomy, extensive lysis of adhesions, segmental small bowel resection, repair of fascial dehiscence with retention sutures. 2. Gastric outlet obstruction. 3. Severe malnutrition. 4. Multiple right-sided rib fractures from chest compressions. 5. Right-sided pneumothorax, status post chest tube placement. PLAN: To continue supportive care. We will place the chest tube back to suction and repeat his chest x-ray in the morning. Continue encouraging out of bed into the neuro chair at minimum. Job ID: [id number]
[2019-07-26] MEDS: Fluconazole In NaCl,Iso-Osm 200 MG in Premix Bag 1 BAG IVPB SCH (17:49)
[2019-07-26] MEDS: Enoxaparin Sodium 40 MG/0.4 ML SYRINGE SC SCH (20:54)
[2019-07-27] MEDS: Piperacillin/Tazobactam 3.375 GM in Sodium Chloride 0.9% 100 ML IVPB SCH ×5 (00:01→23:01)
--- NOTE | 2019-07-27 03:19 | PRG ---
DATE OF SERVICE: 07/26/2019 SUBJECTIVE: The patient was seen this evening during rounds. He was lying in bed, resting comfortably with no signs of acute distress. Nursing reported no acute events. OBJECTIVE: VITAL SIGNS: Temperature 99.1, pulse 102, respirations 36, oxygen saturation 98%, and blood pressure 114/75. ASSESSMENT: 1. Postoperative day #10 status post exploratory laparotomy, extensive lysis of adhesions, segmental small-bowel resection, repair of fascial dehiscence with retention sutures. 2. Gastric outlet obstruction. 3. Severe malnutrition. 4. Multiple right-sided rib fractures. 5. Right-sided pneumothorax. PLAN: Continue current diet and pain regimen. Continue right-sided chest tube to suction. Repeat chest x-ray in the morning. Dr. Ahmadi will evaluate the patient in the morning. Job ID: [id number]
[2019-07-27] MEDS: Lactated Ringer's 1,000 ML IV SCH ×2 (04:28→17:33)
[2019-07-27] MEDS: Furosemide 20 MG/2 ML VIAL SLOW IVP SCH ×3 (08:43→20:40)
[2019-07-27] MEDS: Pantoprazole 40 MG VIAL IVP SCH ×2 (08:44→20:40)
[2019-07-27] MEDS ORDERED: Furosemide 20 MG/2 ML VIAL SLOW IVP SCH (09:00)
--- NOTE | 2019-07-27 09:17 | RAD ---
SINGLE VIEW OF THE CHEST: COMPARISON: 07/26/2019. HISTORY: Ventilated patient with pneumothorax. FINDINGS: A single view of the chest shows a normal-size cardiomediastinal silhouette. There is a right-sided chest tube with a stable moderate right pneumothorax. The central lines are unchanged in position. There is elevation of the right hemidiaphragm. IMPRESSION: Stable right pneumothorax. POS: [facility]
[2019-07-27 09:31] LABS: #Eosinphils 0.2 thou/uL (0.0-0.7); #Lymphocytes 1.2 thou/uL (1.20-3.40); #Monocytes 0.6 thou/uL (0.11-0.59); #Neutrophils 11.4 thou/uL (1.40-6.50); %Eosinophils 1.7 % (0.0-10.0); %Monocytes 4.7 % (0.0-10.0); %Neutrophils 84.6 % (42.0-75.0); Hemoglobin 9.4 g/dL (14.0-18.0); Mean Corpuscular HGB CONC 32.2 g/dL (32.0-36.0); Mean Corpuscular Hemoglobin 27.7 pg (27.0-31.0); Mean Corpuscular Volume 86.1 fL (78.0-98.0); Mean Platelet Volume 6.6 fL (7.4-10.4); Platelet Count 376 thou/uL (130-400); Red Blood Cell (RBC) Count 3.38 mill/uL (4.70-6.10); White Blood Cell (WBC) Count 13.5 thou/uL (4.8-10.8)
[2019-07-27 09:48] LABS: Phosphorus 3.5 mg/dL (2.3-4.7)
[2019-07-27 09:50] LABS: Anion Gap 10 mmol/L (10-20); BUN (Urea Nitrogen) 22 mg/dL (8.4-25.7); Calc. Creatinine Clearance 151 mL/min (70-130); Calcium 8.4 mg/dL (7.8-10.44); Carbon Dioxide 30 mmol/L (23-31); Chloride 99 mmol/L (98-107); Estimated GFR-MDRD Greater than 90; Glucose 114 mg/dL (83-110); Potassium 3.2 mmol/L (3.5-5.1); Sodium 136 mmol/L (136-145)
[2019-07-27] MEDS ORDERED: Iopamidol 370 76% 100 ML VIAL ONE (09:57)
[2019-07-27] MEDS ORDERED: Potassium Chloride 40 MEQ in Premix Bag 1 BAG IVPB SCH (14:15)
[2019-07-27] MEDS: SODIUM ACETATE IV SCH (14:45)
[2019-07-27] MEDS: SODIUM CHLORIDE IV SCH (14:45)
[2019-07-27] MEDS: POTASSIUM CHLORIDE IV SCH (14:45)
[2019-07-27] MEDS: [UNRECOGNIZED DRUG - OTHER] IV SCH (14:45)
--- NOTE | 2019-07-27 16:20 | CT ---
CT CHEST WITH CONTRAST CLINICAL INDICATION: Chest post CPR. Evaluate for pneumothorax/effusion/fractures. COMPARISON: None FINDINGS: Aorta: Vascular calcifications at the aortic arch. Thoracic aorta is normal in caliber without eviden ce of an aortic dissection. Lungs: Small left pleural effusion and associated passive atelectasis are present. A right-sided thor acostomy tube is noted in place with the tip at the posterior inferior right costophrenic angle. A small right-sided pneumothorax is present. Consolidation is present at the right lung base which with generalized decreased volume of the right hemithorax compared to the right and shift of mediastinal structures to the right. These findings are most suggestive of volume loss with consolida tion right lung base likely related to atelectasis. Decreased attenuation in the right mainstem bronchus which could relate to mucous plugging or secondary to aspiration. Mediastinum: No evidence of a mediastinal hematoma or lymphadenopathy. Left-sided PICC line is noted in place, and a left subclavian central venous catheter is also noted in place each of which terminates in the distal SVC. Thyroid gland: Normal CT appearance. Osseous structures: Slightly angulated anterior rib fractures involving the right second through camilo nth ribs. Only a single fractures involving each of these ribs. No left-sided rib fracture is seen. Prominent motion artifact which does limit evaluation, no obvious fracture seen involving the sternum . Degenerative changes are seen in the thoracic spine Chest wall: Subcutaneous edema lateral aspect lower chest/upper abdomen only minimal subcutaneous candido ma seen lateral aspect lower chest/upper abdomen. Upper abdomen: Within normal limits for phase of imaging. Colonic diverticula are seen involving the hepatic and splenic flexure. There is partial visualization of a drainage catheter entering via the left upper quadrant incompletely imaged on this exam. Minimal stranding/edema is seen in the mesenter ic fat right upper quadrant. IMPRESSION: 1. Right-sided thoracostomy tube in place with tip at the posterior costophrenic angle. A small right -sided pneumothorax is present with consolidation at the right lung base. There are is decreased attenuation in the right mainstem bronchus which could be related to mucous plugging or secondary to aspiration. Consolidation at the right lung base is likely related to partial collapse of the right lower lobe. Associated aspiration pneumonitis is a consideration. Bronchoscopy may be helpful for fur ther evaluation. 2. Small left pleural effusion and passive atelectasis. 3. Multiple anterior right-sided rib fractures involving the right second through seventh ribs.
[2019-07-27] MEDS: Fluconazole In NaCl,Iso-Osm 200 MG in Premix Bag 1 BAG IVPB SCH (17:34)
--- NOTE | 2019-07-27 17:34 | PRG ---
DATE OF SERVICE: 07/27/2019 SUBJECTIVE: Mr. Rivera is unchanged. OBJECTIVE: VITAL SIGNS: He is afebrile. Blood pressure 135/92, heart rate 106. LUNGS: Remarkable for coarse equal breath sounds. He still has sternal retraction secondary to sternal fracture from CPR. HEART: Regular rhythm. ABDOMEN: Soft and nontender. He is not having any problems with secretions currently. LABORATORY DATA: White count 13.5, hemoglobin 9.4, platelets 376. Sodium 136, potassium 3.2, chloride 99, bicarb 30, BUN 22, creatinine 0.54, glucose 114. Chest CT was ordered today. A tiny right-sided pneumothorax was seen. Chest radiograph shows atelectasis of the right lung base, most likely secondary to mucus plugging in my opinion. Rib fractures are seen from 2 through 7, which essentially create a clinical flail chest. IMPRESSION: 1. Status post laparotomy and lysis of adhesions. 2. Status post right-sided chest tube placement. 3. Extreme deconditioning and weakness. 4. Encephalopathy secondary to critical illness plus or minus pain medications. PLAN: Overall, he is stable, but certainly at risk for having pulmonary complications. He needs to remain in the critical care unit in my opinion. Job ID: [id number]
[2019-07-27 17:55] LABS: Actual Bicarbonate (HCO3a) 26.1 mEq/L (22-28); Base Excess (BEa) 3.4 mEq/L (-2.0 to +3.0); CO2 Tension 32.6 mmHg (35.0-45.0); Calcium, Ionized 1.16 mmol/L (1.12-1.30); Carboxyhemoglobin (COHb) 0.8 gm% (0.0-3.0); Hemoglobin (Hb) 9.7 g/dL (14.0-18.0); O2 Tension (PaO2), arterial 56.7 mmHg (> 70.0); Potassium - ABG Lab 3.56 mmol/L (3.70-5.30); pH, Arterial 7.52 (7.35-7.45)
[2019-07-27 17:56] LABS: Puncture Site LR
[2019-07-27] MEDS: Enoxaparin Sodium 40 MG/0.4 ML SYRINGE SC SCH (20:40)
[2019-07-28 04:37] LABS: #Basophils 0.1 thou/uL (0.0-0.2); #Eosinphils 0.3 thou/uL (0.0-0.7); #Lymphocytes 1.1 thou/uL (1.20-3.40); #Monocytes 0.5 thou/uL (0.11-0.59); #Neutrophils 9.5 thou/uL (1.40-6.50); %Basophils 0.5 % (0.0-1.0); %Eosinophils 2.2 % (0.0-10.0); %Lymphocytes 9.6 % (21.0-51.0); %Monocytes 4.4 % (0.0-10.0); %Neutrophils 83.3 % (42.0-75.0); Hemoglobin 8.2 g/dL (14.0-18.0); Mean Corpuscular HGB CONC 32.2 g/dL (32.0-36.0); Mean Corpuscular Hemoglobin 27.7 pg (27.0-31.0); Mean Corpuscular Volume 86.1 fL (78.0-98.0); Platelet Count 359 thou/uL (130-400); RBC Distribution Width 17.3 % (11.5-14.5); Red Blood Cell (RBC) Count 2.95 mill/uL (4.70-6.10); White Blood Cell (WBC) Count 11.4 thou/uL (4.8-10.8)
[2019-07-28 04:56] LABS: ALT (SGPT) 40 U/L (8-55); AST (SGOT) 37 U/L (5-34); Albumin 2.4 g/dL (3.4-4.8); Alkaline Phosphatase 155 U/L (40-110); Anion Gap 9 mmol/L (10-20); BUN (Urea Nitrogen) 24 mg/dL (8.4-25.7); Bilirubin, Total 0.5 mg/dL (0.2-1.2); Calc. Creatinine Clearance 167 mL/min (70-130); Carbon Dioxide 31 mmol/L (23-31); Chloride 101 mmol/L (98-107); Estimated GFR-MDRD Greater than 90; Globulin 2.7 g/dL (2.4-3.5); Glucose 99 mg/dL (83-110); Protein, Total 5.1 g/dL (5.8-8.1); Sodium 138 mmol/L (136-145)
[2019-07-28 05:01] LABS: Potassium 2.9 mmol/L (3.5-5.1)
[2019-07-28] MEDS: Piperacillin/Tazobactam 3.375 GM in Sodium Chloride 0.9% 100 ML IVPB SCH ×3 (05:22→16:37)
[2019-07-28] MEDS ORDERED: CCU ELECTROLYTE REPLACEMENT PROTOCOL FS PRN (05:50)
[2019-07-28] MEDS ORDERED: Potassium Chloride 40 MEQ in Sodium Chloride 0.9% 250 ML 250 ML IVPB PRN (05:50)
[2019-07-28] MEDS ORDERED: Magnesium 2 GM/50 ML 2 GM in Premix Bag 1 BAG IVPB PRN (05:50)
[2019-07-28] MEDS ORDERED: Magnesium Oxide 400 MG TAB PO PRN ×2 (05:50)
[2019-07-28] MEDS ORDERED: Potassium Phosphate 15 MMOL in Sodium Chloride 0.9% 250 ML 250 ML IV PRN (05:50)
[2019-07-28] MEDS ORDERED: Potassium Phosphate 12 MMOL in Sodium Chloride 0.9% 250 ML 250 ML IV PRN (05:50)
[2019-07-28] MEDS ORDERED: Potassium Chloride 20 MEQ TAB PO PRN (05:50)
[2019-07-28] MEDS ORDERED: PHOS-NAK 1 PKT PACK PO PRN ×2 (05:50)
[2019-07-28] MEDS ORDERED: Potassium Phosphate 9 MMOL in Sodium Chloride 0.9% 100 ML IVPB PRN (05:50)
[2019-07-28] MEDS: Potassium Chloride 40 MEQ in Premix Bag 1 BAG IVPB PRN ×2 (06:22→16:19)
--- NOTE | 2019-07-28 07:56 | RAD ---
EXAM: CHEST ONE VIEW HISTORY: On ventilator. Follow-up evaluation. COMPARISON: 07/27/2019 FINDINGS: Left-sided PICC line as well as left-sided subclavian vascular catheter remain in place and unchanged in position. Right-sided thoracostomy tube remains in place with tip overlying the medial right lung base. Right-sided pneumothorax persists. Increased density is seen at the right lung base sugges ting consolidation which may be related to volume loss, aspiration pneumonitis, versus pneumonia. There is slight blunting left lateral costophrenic angle suggesting tiny left pleural effusion with a ssociated linear densities in the perihilar location left lung base probably attributable to atelectasis. Right cardiac border is obscured. No other interval change. IMPRESSION: 1. Persistent right-sided pneumothorax with right-sided thoracostomy tube remaining in place; the tip of the thoracostomy tube overlies the medial right lung base.. 2. Persistent opacity right lung base which may be related to atelectasis, pneumonia, or aspiration. There is at least a component of volume loss given that there is decreased volume of the right hemithorax with shift of the mediastinal structures to the right.
--- NOTE | 2019-07-28 08:02 | PRG ---
DATE OF SERVICE: 07/27/2019 SUBJECTIVE: Mr. Rivera is postoperative day #6 from laparotomy and small bowel resection with extensive lysis of adhesions and repair of a fascial dehiscence. He also has a right-sided chest tube secondary to right pneumothorax related to rib fracture sustained at the time of his CPR. He remains in the intensive care unit. He is currently in a neuro chair. I am told that he has not been very motivated to participate either with respiratory or physical therapies. He does, however, tell me that he is hungry. He apparently had a bowel movement last night. On examination, he is afebrile. His pulse is 101 to 109, his blood pressure is 136/78. His urine output for yesterday was 4100 mL. He had about 390 mL out of his chest tube and abdominal drainage total of 155. His anterior lung mejias appear to be clear, but relatively diminished on the right. Heart, regular rate and rhythm. Abdomen dressing is intact including the back. Bowel sounds are difficult to discern. Bilateral drains appear to be draining serosanguineous clear fluid. LABORATORY DATA: His basic metabolic panel shows normal electrolytes except for a potassium that is low at 3.2. His phosphorus level today is 3.5. His CBC shows a stable hemoglobin of 9.4, white blood cell count 13.5. Chest x-ray shows what appears to be a right-sided pneumothorax. PLAN: The patient has been stable, but tenuous condition. I may need to place another chest tube as it appears he has pneumothorax in light of his current chest tube. TPN will need to be adjusted to adjust for the hypokalemia. We will continue TPN for nutritional support. Job ID: [id number]
[2019-07-28] MEDS: Furosemide 20 MG/2 ML VIAL SLOW IVP SCH ×3 (08:14→21:58)
[2019-07-28] MEDS: Lactated Ringer's 1,000 ML IV SCH ×2 (08:14→22:04)
[2019-07-28] MEDS: Pantoprazole 40 MG VIAL IVP SCH ×2 (08:15→21:58)
--- NOTE | 2019-07-28 08:39 | PRG ---
DATE OF SERVICE: 07/28/2019 SUBJECTIVE: Mr. Rivera still has full chest mechanics. He slept on BiPAP. OBJECTIVE: VITAL SIGNS: Oximetry is 100% this morning, blood pressure 150/83, heart rate is 93, respiratory rate is in the high 20s. LUNGS: Remarkable for coarse equal breath sounds. HEART: Regular rhythm. ABDOMEN: Soft, slightly distended. EXTREMITIES: Without asymmetry. Today's chest radiograph shows inflation of the left lung, atelectasis of his right lower lobe with a little mediastinal shift is seen. I really do not think I can bronchoscope him for suctioning without intubating him at this point. We will discuss with Respiratory Therapy to see if he will cooperate with EzPAP. IMPRESSION: 1. Status post laparotomy. 2. Status post code. 3. Flail chest. 4. Pneumothorax with chest tube on the right. 5. Gastric outlet obstruction. 6. Status post inadvertent enterotomies with resection of a small segment of small bowel. PLAN: Continue supportive care. Job ID: [id number]
[2019-07-28] MEDS ORDERED: Lidocaine 1% (PF) 30 ML VIAL ONE (11:26)
[2019-07-28] MEDS ORDERED: Lidocaine 1% w/Epinephrine 1:100K 20 ML VIAL ONE (13:42)
[2019-07-28] MEDS: SODIUM CHLORIDE IV SCH (14:22)
[2019-07-28] MEDS: POTASSIUM CHLORIDE IV SCH (14:22)
[2019-07-28] MEDS: [UNRECOGNIZED DRUG - OTHER] IV SCH (14:22)
[2019-07-28] MEDS: SODIUM ACETATE IV SCH (14:22)
[2019-07-28] MEDS ORDERED: Fentanyl 100 MCG/2 ML VIAL SLOW IVP SCH (14:45)
[2019-07-28 15:44] LABS: Potassium 3.4 mmol/L (3.5-5.1)
--- NOTE | 2019-07-28 15:56 | RAD ---
SINGLE VIEW OF THE CHEST: COMPARISON: 07/28/2019. HISTORY: Chest tube placement. FINDINGS: A single view of the chest shows a cardiomediastinal silhouette which is upper limits of normal in si ze. The central venous catheter is unchanged in position. There are 2 right-sided chest tubes witho ut evidence of pneumothorax. There still appears to be a small right pleural effusion. There is shelley vation of the right hemidiaphragm. IMPRESSION: Interval placement of 2nd right-sided chest tube with persistent small right pleural effusion. POS: [facility]
[2019-07-28] MEDS: Fluconazole In NaCl,Iso-Osm 200 MG in Premix Bag 1 BAG IVPB SCH (16:26)
[2019-07-28] MEDS: Zolpidem Tartrate 5 MG TAB PO PRN (21:58)
[2019-07-28] MEDS: Enoxaparin Sodium 40 MG/0.4 ML SYRINGE SC SCH (21:58)
[2019-07-28] MEDS ORDERED: [UNRECOGNIZED DRUG - OTHER] IV SCH (22:00)
[2019-07-28] MEDS ORDERED: SODIUM ACETATE IV SCH (22:00)
[2019-07-28] MEDS ORDERED: SODIUM CHLORIDE IV SCH (22:00)
[2019-07-28] MEDS ORDERED: FAT EMULSION IV SCH (22:00)
--- NOTE | 2019-07-28 23:01 | PRG ---
DATE OF SERVICE: 07/28/2019 SUBJECTIVE: Mr. Rivera is postoperative day #7 from laparotomy and small bowel resection with extensive lysis of adhesions and repair of fascial dehiscence. The coded during that surgery requiring chest compressions, which resulted in right rib fractures #2 through #7 in the parasternal region. This has resulted in a right-sided pneumothorax and a dyssynchronous right chest movement with respiration. He remains in the intensive care unit. He continues to have some issues with motivation with participation in his rehabilitation and care. Chest x-ray from yesterday revealed persistent pneumothorax. I obtained a CT scan of his chest for better evaluation. This showed substantial right lung volume loss. This is associated with a superior right-sided persistent pneumothorax in spite of the chest tube in the lower pleural space. The patient in general, more comfortable, although he still notes some pain in his chest and his abdomen. On examination, he is afebrile, pulse is stable in the 90s, blood pressure is 150/90, oxygen saturation is 100%. He is kept on BiPAP to help with minimization of atelectasis. His urine output with Lasix was 3500 mL yesterday. His drain output shows that his left drain has stopped draining, but his right drain put out of 70 mL yesterday. Chest tube continues to drain 200 to 300 mL per day. He is having bowel movement well. His lungs show good breath sounds on the left with diminished breath sounds on the right. Abdomen has hypoactive bowel sounds. Wound VAC dressing is in place over the midline abdominal wound. The drainage in both drains is light colored, clear, serosanguineous. LABORATORY DATA: His CBC shows continued decrease hemoglobin. Hemoglobin level is 8.2 today, down from 9.4 yesterday. White blood cell count is 11.4. Chemistry panel shows significant hypokalemia of 2.9 this morning. He was treated with potassium and it has come up to 3.4. Other electrolytes are normal. His albumin, surprisingly, is up to 2.4. His pre-albumin has come up from 5 to 10 over the last week. ASSESSMENT: He is overall stable. He has respiratory compromise secondary to his multiple rib fractures. As he has a persistent pneumothorax a week out from surgery, I will recommend another right chest tube. superiorly. TPN will be adjusted. We will likely require potassium as long as he is getting regular dosing of Lasix. We will continue to try to optimize his nutrition. I will also check his jejunostomy tube to see if there is a potential for giving him low volume tube feeds. I will do a bedside Gastrografin study tomorrow to check this. I had a lengthy conversation with his daughter, Elva today who understands his current condition and the long-term plans. Job ID: [id number]
--- NOTE | 2019-07-29 01:16 | OP ---
DATE OF PROCEDURE: 07/28/2019 PREOPERATIVE DIAGNOSIS: Right apical pneumothorax. POSTOPERATIVE DIAGNOSES: 1. Right apical pneumothorax. 2. Pulmonic adhesions and a loculated pleural effusion. PROCEDURE PERFORMED: Placement of a 2nd right chest tube. ANESTHESIA: Local using 1% lidocaine with epinephrine as well as IV fentanyl. DESCRIPTION OF PROCEDURE: Informed consent was obtained from his daughter. He was placed supine. The prior right chest tube dressing was removed. Right chest was prepped with ChloraPrep and draped in sterile fashion. Several centimeter superior to the previous chest tube, the skin was anesthetized and incised. Blunt dissection was carried through the subcutaneous tissue and into the pleural space. There was a pleural effusion that was encountered. Initial attempts to pass the tube superiorly were met with resistance and this required blunt dissection of the pleural space in a superior fashion such that the chest tube could be advanced. I guided this digitally. The tube was sutured to the skin exit site with 0 silk suture. Occlusive dressing was applied over both chest tubes. There were no complications. Postprocedure chest x-ray shows that the new tube is in fact located at the superior aspect of the pleural space. Job ID: [id number]
[2019-07-29] MEDS: Piperacillin/Tazobactam 3.375 GM in Sodium Chloride 0.9% 100 ML IVPB SCH ×5 (01:33→23:20)
[2019-07-29 04:45] LABS: #Basophils 0.1 thou/uL (0.0-0.2); #Eosinphils 0.3 thou/uL (0.0-0.7); #Lymphocytes 1.2 thou/uL (1.20-3.40); #Monocytes 0.6 thou/uL (0.11-0.59); %Basophils 0.5 % (0.0-1.0); %Eosinophils 2.5 % (0.0-10.0); %Lymphocytes 10.7 % (21.0-51.0); %Monocytes 5.4 % (0.0-10.0); %Neutrophils 80.9 % (42.0-75.0); Hemoglobin 7.4 g/dL (14.0-18.0); Mean Corpuscular HGB CONC 31.9 g/dL (32.0-36.0); Mean Corpuscular Hemoglobin 27.7 pg (27.0-31.0); Mean Corpuscular Volume 86.7 fL (78.0-98.0); Mean Platelet Volume 6.8 fL (7.4-10.4); Platelet Count 408 thou/uL (130-400); RBC Distribution Width 17.9 % (11.5-14.5); Red Blood Cell (RBC) Count 2.66 mill/uL (4.70-6.10); White Blood Cell (WBC) Count 11.1 thou/uL (4.8-10.8)
[2019-07-29 05:05] LABS: Anion Gap 10 mmol/L (10-20); BUN (Urea Nitrogen) 25 mg/dL (8.4-25.7); Calc. Creatinine Clearance 152 mL/min (70-130); Carbon Dioxide 28 mmol/L (23-31); Chloride 106 mmol/L (98-107); Estimated GFR-MDRD Greater than 90; Glucose 98 mg/dL (83-110); Magnesium 2.2 mg/dL (1.6-2.6); Phosphorus 3.3 mg/dL (2.3-4.7); Potassium 3.3 mmol/L (3.5-5.1); Sodium 141 mmol/L (136-145)
[2019-07-29] MEDS: Potassium Chloride 40 MEQ in Premix Bag 1 BAG IVPB PRN (06:26)
[2019-07-29] MEDS: Furosemide 20 MG/2 ML VIAL SLOW IVP SCH ×3 (08:42→21:18)
[2019-07-29] MEDS: Pantoprazole 40 MG VIAL IVP SCH ×2 (08:42→21:18)
--- NOTE | 2019-07-29 09:43 | RAD ---
Exam: 1 view abdomen HISTORY: Evaluate for small bowel obstruction COMPARISON: None FINDINGS: Portable supine view abdomen demonstrates contrast opacifying multiple distended loops of s mall bowel. Lack of contrast opacifying the colon may be due to 2 technique. Follow-up imaging if clinically warranted. IMPRESSION: Findings worrisome for a possible small bowel obstruction.
--- NOTE | 2019-07-29 09:55 | RAD ---
CHEST 1 VIEW: INDICATION: History of intubation. COMPARISON: Prior exam dated 07/28/2019. IMPRESSION: Right-sided thoracostomy tube is unchanged. Shifting of the mediastinum to the right is similar to t he comparison. Left lung remains clear. Left-sided PICC line is unchanged. Left-sided subclavian c entral venous catheter is unchanged. Surgical clips are again seen within the upper abdomen. Nonspe cific bowel gas pattern is seen within the upper abdomen. POS: [facility]
[2019-07-29] MEDS ORDERED: MD-Gastroview 120 ML BOT ONE (11:37)
--- NOTE | 2019-07-29 11:54 | RAD ---
Exam: 1 view abdomen HISTORY: Evaluate for small bowel obstruction. Comparison 07/29/2019 9:06 AM FINDINGS: Passage of radiotracer in the alimentary canal. Contrast opacifies prominent small bowel lo ops. Contrast now appears to opacify the right hemicolon as well as the descending colon. IMPRESSION: No evidence of high-grade small bowel obstruction given that contrast opacifies segments of the colon.
[2019-07-29] MEDS: Lactated Ringer's 1,000 ML IV SCH (12:26)
--- NOTE | 2019-07-29 12:30 | PRG ---
DATE OF SERVICE: 07/29/2019 SUBJECTIVE: Mr. Rivera is postoperative day #8 from laparotomy and small bowel resection with extensive lysis of adhesions and repair of fascial dehiscence. During that surgery, he coded, required chest compressions which resulted in right rib fractures #2 through #7 in the parasternal region and this has resulted in a right-sided pneumothorax and a dyssynchronous right chest wall movement. Yesterday, I placed a second chest tube to better treat the pneumothorax. This is located superiorly. The chest tube that is located superiorly has an air leak on today's examination. His chest x-ray from today shows an incredibly small right lung volume. Both chest tubes are in place and it appears that he has an elevated right hemidiaphragm. He has no other complaints. He has had a bowel movement. His pain is controlled with SPEECH/LANGUAGE THERAPIST. He remains on TPN. He is getting Lasix 3 times per day to help with diuresis. On examination today, he remains afebrile. His pulse is 91, blood pressure is 145/80, oxygen saturation is 99%. He uses nasal BiPAP while he is asleep. Urine output for yesterday was 3.7 L. His right ARGELIA drain drained 170 mL of clear serosanguineous. His left drain has put out nothing in about 3 days. His left lung is clear to auscultation. The right lung has very distant breath sounds. It does not appear that he is moving much air on the right. His abdomen has a wound VAC over his midline incision. His fascial dehiscence was closed with retention sutures. Jejunostomy feeding tube is still in the left abdomen. He has no focal tenderness to palpation. LABORATORY DATA: CBC shows his hemoglobin has continued to drift down. It is 7.4 today, down from 8.2 yesterday. White blood cell count is 11. Electrolytes show that his potassium is a little low at 3.3. Other electrolytes are normal including phosphorus and magnesium. His iron level is very low at 20. This may be associated with his anemia. ASSESSMENT: The patient with multiple continuing problems. He has a hostile abdomen. He needs surgery for gastric outlet obstruction. He was quite malnourished and currently has slowly resolving anasarca. I do not plan to address his abdomen for at least 3 months. He has an open wound that is being treated with wound VAC. He has multiple right-sided rib fractures with pneumothorax and a very abnormal chest x-ray. I will speak with the Pulmonary Medicine (Dr. Olea) to see if they have any further recommendations regarding this. I am not certain that this would be improved with anything short of putting him back on a ventilator. Today, I also did a contrast study of his jejunostomy tube. This showed the contrast passed quickly through the small bowel and reaching the colon in less than an hour. He is already having bowel movements from the Gastrografin. It appears that he would therefore tolerate tube feeds and I will initiate tube feeds using his jejunostomy today. He did not tolerate them before this surgery when he had such dense adhesions to his bowel. I will also address his low iron level. He will likely benefit from intravenous iron. He will remain in the ICU for now as he still has a tenuous appearance and his respirations appear abnormal. Job ID: [id number]
[2019-07-29] MEDS ORDERED: Iron, Sodium Ferric Gluconate 250 MG in Sodium Chloride 0.9% 250 ML 250 ML IVPB SCH ×2 (14:00)
[2019-07-29] MEDS: SODIUM ACETATE IV SCH (14:37)
[2019-07-29] MEDS: FAT EMULSION IV SCH (14:37)
[2019-07-29] MEDS: [UNRECOGNIZED DRUG - OTHER] IV SCH (14:37)
[2019-07-29] MEDS: SODIUM CHLORIDE IV SCH (14:37)
--- NOTE | 2019-07-29 15:50 | PRG ---
DATE OF SERVICE: 07/29/2019 SUBJECTIVE: Max Rivera is up in the neuro chair earlier, is back in bed. He has no new complaints. He still has well chest mechanics. OBJECTIVE: VITAL SIGNS: Heart rate is 100, blood pressure 146/77, respiratory rate is in the 20s to low 30s. He is afebrile. LUNGS: He has mild rhonchi bilaterally. HEART: Regular rhythm. ABDOMEN: Soft, slightly distended. LABORATORY DATA: White count 11.1, hemoglobin 7.4, and platelets 408. Sodium 141, potassium 3.3, chloride 103, bicarb 28, BUN 25, and creatinine 0.53. IMPRESSION: 1. Status post laparotomy with lysis of adhesions. 2. Gastric outlet obstruction. 3. Pneumothorax with two chest tubes in place. 4. Flail chest secondary to intraoperative cardiac arrest and CPR. PLAN: Continue supportive care. Nutritional support with TPN. Physical therapy. Chest tube suction, etc., Job ID: [id number]
[2019-07-29] MEDS: Fluconazole In NaCl,Iso-Osm 200 MG in Premix Bag 1 BAG IVPB SCH (17:10)
[2019-07-29] MEDS: Enoxaparin Sodium 40 MG/0.4 ML SYRINGE SC SCH (20:04)
[2019-07-29] MEDS: Zolpidem Tartrate 5 MG TAB PO PRN (20:05)
[2019-07-30] MEDS: Lactated Ringer's 1,000 ML IV SCH ×2 (03:19→17:25)
[2019-07-30 04:27] LABS: #Basophils 0.1 thou/uL (0.0-0.2); #Eosinphils 0.3 thou/uL (0.0-0.7); #Lymphocytes 1.2 thou/uL (1.20-3.40); #Monocytes 0.5 thou/uL (0.11-0.59); #Neutrophils 9.4 thou/uL (1.40-6.50); %Basophils 0.7 % (0.0-1.0); %Eosinophils 2.5 % (0.0-10.0); %Lymphocytes 10.4 % (21.0-51.0); %Neutrophils 82.6 % (42.0-75.0); Mean Corpuscular HGB CONC 31.2 g/dL (32.0-36.0); Mean Corpuscular Hemoglobin 27.8 pg (27.0-31.0); Mean Platelet Volume 7.1 fL (7.4-10.4); Platelet Count 373 thou/uL (130-400); RBC Distribution Width 18.2 % (11.5-14.5); Red Blood Cell (RBC) Count 3.25 mill/uL (4.70-6.10); White Blood Cell (WBC) Count 11.4 thou/uL (4.8-10.8)
[2019-07-30 04:41] LABS: Anion Gap 9 mmol/L (10-20); BUN (Urea Nitrogen) 24 mg/dL (8.4-25.7); Calc. Creatinine Clearance 144 mL/min (70-130); Calcium 8.1 mg/dL (7.8-10.44); Carbon Dioxide 29 mmol/L (23-31); Chloride 107 mmol/L (98-107); Estimated GFR-MDRD Greater than 90; Glucose 122 mg/dL (83-110); Sodium 142 mmol/L (136-145)
[2019-07-30] MEDS: Piperacillin/Tazobactam 3.375 GM in Sodium Chloride 0.9% 100 ML IVPB SCH ×3 (05:01→17:24)
[2019-07-30] MEDS: Potassium Chloride 40 MEQ in Premix Bag 1 BAG IVPB PRN (05:02)
--- NOTE | 2019-07-30 08:19 | PRG ---
DATE OF SERVICE: 07/30/2019 SUBJECTIVE: Mr. Rivera has no change. He still sleeps with BiPAP. He is in no distress. He still has chest tubes in place. OBJECTIVE: VITAL SIGNS: He is afebrile. Heart rate is in the 90s. Blood pressures have been stable. LUNGS: Clear. He still has an unstable sternum. HEART: Regular rhythm. ABDOMEN: Soft and mildly tender. LABORATORY DATA: White count 11.4, hemoglobin 9.0, platelets 373. Electrolytes are unremarkable. Creatinine 0.55. IMPRESSION: 1. Status post laparotomy that was complicated by prolonged lysis of adhesions and partial small bowel resection. 2. Pneumothorax. 3. Status post CPR in operating room with flail chest. He is handling this amazingly well. Chest x-ray today shows no infiltrates. Proper placement of both chest tube but I do not see a pneumothorax on the film. We will continue to follow in supportive fashion. He appears to be stable on current management. He should remain in the critical care unit in my opinion. Job ID: [id number]
[2019-07-30] MEDS ORDERED: Iron, Sodium Ferric Gluconate 250 MG in Sodium Chloride 0.9% 250 ML 250 ML IVPB SCH (09:00)
--- NOTE | 2019-07-30 10:23 | RAD ---
PORTABLE CHEST: HISTORY: Respiratory distress. COMPARISON: Prior day's exam. FINDINGS: Right-sided chest tubes remain in place. Some of the pleural and parenchymal changes in the right ba se appear improved. Atelectatic changes are seen in the left base. Left-sided PICC line and subclav radha lines are again demonstrated. IMPRESSION: Slight improvement to some of the pleural and parenchymal changes in the right lung base. POS: [facility]
[2019-07-30] MEDS: Furosemide 20 MG/2 ML VIAL SLOW IVP SCH ×3 (10:31→20:17)
[2019-07-30] MEDS: Pantoprazole 40 MG VIAL IVP SCH ×2 (10:31→20:17)
[2019-07-30] MEDS: SODIUM CHLORIDE IV SCH (14:47)
[2019-07-30] MEDS: FAT EMULSION IV SCH (14:47)
[2019-07-30] MEDS: [UNRECOGNIZED DRUG - OTHER] IV SCH (14:47)
[2019-07-30] MEDS: SODIUM ACETATE IV SCH (14:47)
--- NOTE | 2019-07-30 15:32 | PRG ---
DATE OF SERVICE: 07/30/2019 SUBJECTIVE: Mr. Rivera is awake, alert, talking today, states that he is more sore today than he was yesterday. No events overnight. He seems to be tolerating his tube feeds at a rate of 20 mL an hour. PHYSICAL EXAMINATION: VITAL SIGNS: His pulse is 103, blood pressure 142/71. Urine output 1680 overnight. Chest tube drains 150 out of upper and 10 out of lower and his JPs are putting out minimal. LUNGS: Breath sounds are coarse. HEART: Regular rate. ABDOMEN: Soft and appropriately tender. The wounds are all dressed. ARGELIA output is serous. LABORATORY DATA: White blood cell count 11 and hemoglobin 9. Creatinine 0.55 and potassium 3.0. The upper chest tube shows an air leak, bottom one no air leak. ASSESSMENT: 1. History of cardiac arrest with rib fractures, right pneumothorax. 2. History of gastric outlet obstruction, now with feeding jejunostomy. PLAN: May start increasing the tube feeds tomorrow if still tolerating. Still has an air leak in the right upper chest tube. The system has been checked for leaks. Continue both chest tubes to suction for now. Job ID: [id number]
[2019-07-30] MEDS: Fluconazole In NaCl,Iso-Osm 200 MG in Premix Bag 1 BAG IVPB SCH (17:25)
[2019-07-30] MEDS: Enoxaparin Sodium 40 MG/0.4 ML SYRINGE SC SCH (20:17)
[2019-07-30] MEDS: Zolpidem Tartrate 5 MG TAB PO PRN (20:18)
[2019-07-31] MEDS: Piperacillin/Tazobactam 3.375 GM in Sodium Chloride 0.9% 100 ML IVPB SCH ×4 (00:17→16:59)
[2019-07-31 03:38] LABS: #Basophils 0.1 thou/uL (0.0-0.2); #Eosinphils 0.4 thou/uL (0.0-0.7); #Lymphocytes 1.7 thou/uL (1.20-3.40); #Monocytes 0.5 thou/uL (0.11-0.59); #Neutrophils 11.6 thou/uL (1.40-6.50); %Basophils 0.5 % (0.0-1.0); %Eosinophils 3.1 % (0.0-10.0); %Lymphocytes 11.9 % (21.0-51.0); %Monocytes 3.6 % (0.0-10.0); %Neutrophils 80.9 % (42.0-75.0); Hemoglobin 8.8 g/dL (14.0-18.0); Mean Corpuscular HGB CONC 32.6 g/dL (32.0-36.0); Mean Corpuscular Hemoglobin 28.7 pg (27.0-31.0); Mean Corpuscular Volume 88.1 fL (78.0-98.0); Platelet Count 388 thou/uL (130-400); RBC Distribution Width 18.5 % (11.5-14.5); Red Blood Cell (RBC) Count 3.05 mill/uL (4.70-6.10); White Blood Cell (WBC) Count 14.4 thou/uL (4.8-10.8)
[2019-07-31 04:17] LABS: ALT (SGPT) 47 U/L (8-55); AST (SGOT) 38 U/L (5-34); Albumin 2.4 g/dL (3.4-4.8); Alkaline Phosphatase 165 U/L (40-110); Anion Gap 13 mmol/L (10-20); BUN (Urea Nitrogen) 22 mg/dL (8.4-25.7); Bilirubin, Total 0.3 mg/dL (0.2-1.2); Calc. Creatinine Clearance 138 mL/min (70-130); Calcium 7.8 mg/dL (7.8-10.44); Carbon Dioxide 23 mmol/L (23-31); Chloride 108 mmol/L (98-107); Estimated GFR-MDRD Greater than 90; Globulin 2.9 g/dL (2.4-3.5); Glucose 115 mg/dL (83-110); Phosphorus 3.4 mg/dL (2.3-4.7); Potassium 3.5 mmol/L (3.5-5.1); Protein, Total 5.3 g/dL (5.8-8.1); Sodium 140 mmol/L (136-145)
--- NOTE | 2019-07-31 09:15 | PRG ---
DATE OF SERVICE: 07/31/2019 SUBJECTIVE: The patient is doing fairly well. He is wearing the BiPAP twice a day. He is still requiring chest tube for evacuation of right pneumothorax with continued small air leak. OBJECTIVE: VITAL SIGNS: Temperature 98.6, pulse 117, and blood pressure 121/69. Intake 3921, output 3630. HEENT: Unremarkable. NECK: No JVD. LUNGS: Clear, but has still significant flail chest. CARDIAC: S1 and S2 regular. Slightly tachycardic. ABDOMEN: Soft. EXTREMITIES: No edema. LABORATORY DATA: White blood cell count 14, hematocrit 26.9, and platelet count 388. Sodium 140, potassium 3.5, chloride 108, CO2 of 23, BUN 22, creatinine 0.5, and glucose 115. ASSESSMENT: 1. Status post laparotomy, complicated by adhesiolysis and partial small-bowel resection. 2. Pneumothorax. 3. Status post CPR. PLAN: 1. Continue current supportive care including BiPAP as needed and chest tube drainage. 2. Antibiotics per General Surgery. Job ID: [id number]
[2019-07-31] MEDS: Pantoprazole 40 MG VIAL IVP SCH ×2 (09:23→20:07)
[2019-07-31] MEDS: Furosemide 20 MG/2 ML VIAL SLOW IVP SCH ×3 (09:23→20:06)
--- NOTE | 2019-07-31 10:51 | PDOC.GSPN ---
Surgery Progress Note: Subj - Subjective Narrative: No complaints today. Wound care notes stool like material in the wound Surgery Progress Note: Obj - Vital signs Vital signs: Vital Signs - Most Recent Temp Pulse Resp BP Pulse Ox 98.6 F 116 H 28 H 125/76 100 07/31/19 04:00 07/30/19 22:01 07/23/19 13:00 07/27/19 11:20 07/31/19 02:29 - Physical Exam General: no distress Respiratory: coarse breath sounds Abdomen: soft, appropriately tender Wound: wound vac (Overall good granulation in the wound. There appears to be enteric contents on the removed dressings) Surgery Progress Note: Results - Labs Result Diagrams: 07/31/19 02:59 07/31/19 02:59 Lab results: Laboratory Results - last 24 hr 07/31/19 07/31/19 02:59 02:59 WBC 14.4 H RBC 3.05 L Hgb 8.8 L Hct 26.9 L MCV 88.1 MCH 28.7 MCHC 32.6 RDW 18.5 H Plt Count 388 MPV 7.0 L Neutrophils % 80.9 H Neutrophils % (Manual) Not Reportable Lymphocytes % 11.9 L Monocytes % 3.6 Eosinophils % 3.1 Basophils % 0.5 Neutrophils # 11.6 H Lymphocytes # 1.7 Monocytes # 0.5 Eosinophils # 0.4 Basophils # 0.1 Sodium 140 Potassium 3.5 Chloride 108 H Carbon Dioxide 23 Anion Gap 13 BUN 22 Creatinine 0.57 L Estimated GFR (MDRD) Greater than 90 Glucose 115 H Calcium 7.8 Phosphorus 3.4 Magnesium 2.0 Total Bilirubin 0.3 AST 38 H ALT 47 Alkaline Phosphatase 165 H Serum Total Protein 5.3 L Albumin 2.4 L Globulin 2.9 Albumin/Globulin Ratio 0.8 L Surgery Progress Note: A/P - Problem (1) Gastric outlet obstruction Current Visit: Yes Code(s): K31.1 - ADULT HYPERTROPHIC PYLORIC STENOSIS Status: Acute - Plan Plan: Question of enteric fistula. -hold TF, continue tpn -CT's remain on suction
[2019-07-31] MEDS: Lactated Ringer's 1,000 ML IV SCH (11:37)
[2019-07-31] MEDS: FAT EMULSION IV SCH (14:50)
[2019-07-31] MEDS: SODIUM ACETATE IV SCH (14:50)
[2019-07-31] MEDS: [UNRECOGNIZED DRUG - OTHER] IV SCH (14:50)
[2019-07-31] MEDS: SODIUM CHLORIDE IV SCH (14:50)
[2019-07-31] MEDS: Fluconazole In NaCl,Iso-Osm 200 MG in Premix Bag 1 BAG IVPB SCH (16:59)
[2019-07-31] MEDS: Enoxaparin Sodium 40 MG/0.4 ML SYRINGE SC SCH (20:06)
[2019-07-31] MEDS: Zolpidem Tartrate 5 MG TAB PO PRN (20:07)
[2019-08-01] MEDS: Lactated Ringer's 1,000 ML IV SCH ×2 (00:26→10:28)
[2019-08-01] MEDS: Piperacillin/Tazobactam 3.375 GM in Sodium Chloride 0.9% 100 ML IVPB SCH ×4 (00:50→17:34)
[2019-08-01 03:30] LABS: #Basophils 0.1 thou/uL (0.0-0.2); #Eosinphils 0.5 thou/uL (0.0-0.7); #Lymphocytes 1.6 thou/uL (1.20-3.40); #Monocytes 0.4 thou/uL (0.11-0.59); #Neutrophils 9.4 thou/uL (1.40-6.50); %Basophils 0.5 % (0.0-1.0); %Eosinophils 4.3 % (0.0-10.0); %Lymphocytes 13.4 % (21.0-51.0); %Monocytes 3.4 % (0.0-10.0); %Neutrophils 78.4 % (42.0-75.0); Mean Corpuscular HGB CONC 31.8 g/dL (32.0-36.0); Mean Corpuscular Hemoglobin 28.6 pg (27.0-31.0); Mean Corpuscular Volume 90.1 fL (78.0-98.0); Mean Platelet Volume 6.7 fL (7.4-10.4); Platelet Count 394 thou/uL (130-400); RBC Distribution Width 19.1 % (11.5-14.5); Red Blood Cell (RBC) Count 3.13 mill/uL (4.70-6.10)
[2019-08-01 03:48] LABS: Magnesium 2.1 mg/dL (1.6-2.6); Phosphorus 3.8 mg/dL (2.3-4.7)
[2019-08-01] MEDS: Pantoprazole 40 MG VIAL IVP SCH ×2 (08:51→20:17)
[2019-08-01] MEDS: Furosemide 20 MG/2 ML VIAL SLOW IVP SCH ×3 (08:51→20:17)
--- NOTE | 2019-08-01 09:58 | PRG ---
DATE OF SERVICE: 08/01/2019 SUBJECTIVE: The patient appears to be doing well. His chest feels better. OBJECTIVE: VITAL SIGNS: On exam, temperature is 99, pulse 102, blood pressure 133/75, and O2 saturation 100%. HEENT: Unremarkable. NECK: No adenopathy or JVD. LUNGS: Clear anteriorly. Has small amount of swelling. CARDIAC: S1 and S2. Regular. ABDOMEN: Soft. EXTREMITIES: No edema. LABORATORY DATA: White blood cell count 12, hematocrit 28.2, and platelet count 394. ASSESSMENT: 1. Flail chest, improving. 2. Right pneumothorax. 3. Status post adhesiolysis. PLAN: 1. Continue chest tube drainage until air leak seals. 2. Recheck labs tomorrow. Job ID: [id number]
--- NOTE | 2019-08-01 13:32 | PRG ---
DATE OF SERVICE: 08/01/2019 SUBJECTIVE: Mr. Rivera has no complaints today. OBJECTIVE: VITAL SIGNS: Stable. He is afebrile. His air leak is much improved, does not absent now. Chest tube drainage is stable. His ARGELIA drain is serosanguineous. ABDOMEN: Unchanged. The wound VAC is intact. There does not appear to be any enteric contents in the tubing or the drain. LABORATORY DATA: His white blood cell count is down to 12 with normal differential, hemoglobin is 9. Creatinine is 0.57. ASSESSMENT: Improving slowly. Hopefully get chest tube to water seal soon if there is no ongoing air leak. Continue TPN for now given the history of possible enteric contents in the drain, likely restart tube feeds in the next few days if not. Dr. Ahmadi is returning tomorrow. Job ID: [id number]
[2019-08-01] MEDS: SODIUM ACETATE IV SCH (14:24)
[2019-08-01] MEDS: SODIUM CHLORIDE IV SCH (14:24)
[2019-08-01] MEDS: FAT EMULSION IV SCH (14:24)
[2019-08-01] MEDS: [UNRECOGNIZED DRUG - OTHER] IV SCH (14:24)
[2019-08-01] MEDS: Fluconazole In NaCl,Iso-Osm 200 MG in Premix Bag 1 BAG IVPB SCH (17:26)
[2019-08-01] MEDS: Enoxaparin Sodium 40 MG/0.4 ML SYRINGE SC SCH (20:16)
[2019-08-01] MEDS: Zolpidem Tartrate 5 MG TAB PO PRN (20:17)
[2019-08-02] MEDS: Piperacillin/Tazobactam 3.375 GM in Sodium Chloride 0.9% 100 ML IVPB SCH ×4 (00:52→18:26)
[2019-08-02] MEDS: Lactated Ringer's 1,000 ML IV SCH ×2 (02:35→20:39)
[2019-08-02 05:07] LABS: INR-International Normal Ratio 1.1; Prothrombin Time 14.4 sec (12.0-14.7)
[2019-08-02 05:08] LABS: PTT 43.1 sec (22.9-36.1)
[2019-08-02 05:22] LABS: Anion Gap 10 mmol/L (10-20); BUN (Urea Nitrogen) 24 mg/dL (8.4-25.7); Calc. Creatinine Clearance 135 mL/min (70-130); Calcium 7.7 mg/dL (7.8-10.44); Carbon Dioxide 25 mmol/L (23-31); Chloride 106 mmol/L (98-107); Estimated GFR-MDRD Greater than 90; Glucose 99 mg/dL (83-110); Potassium 3.3 mmol/L (3.5-5.1); Sodium 138 mmol/L (136-145)
[2019-08-02 05:27] LABS: #Basophils 0.1 thou/uL (0.0-0.2); #Eosinphils 0.5 thou/uL (0.0-0.7); #Lymphocytes 1.4 thou/uL (1.20-3.40); #Monocytes 0.5 thou/uL (0.11-0.59); #Neutrophils 8.4 thou/uL (1.40-6.50); %Basophils 0.5 % (0.0-1.0); %Eosinophils 4.8 % (0.0-10.0); %Lymphocytes 12.6 % (21.0-51.0); %Monocytes 4.2 % (0.0-10.0); %Neutrophils 77.9 % (42.0-75.0); Band 2 % (5-11); Eosinophils 2 % (0-10); Hemoglobin 8.3 g/dL (14.0-18.0); Hypochromia SLIGHT = 6-15 cells (100X) (0-5/hpf); Lymphocytes 11 % (21-51); MDiff Complete? YES; Mean Corpuscular HGB CONC 32.2 g/dL (32.0-36.0); Mean Corpuscular Hemoglobin 29.1 pg (27.0-31.0); Mean Corpuscular Volume 90.2 fL (78.0-98.0); Monocytes 2 % (0-10); Neutrophil 83 % (42-75); Platelet Count 402 thou/uL (130-400); Platelet Morphology Comment Appears Adequate; RBC Distribution Width 19.1 % (11.5-14.5); Red Blood Cell (RBC) Count 2.85 mill/uL (4.70-6.10); White Blood Cell (WBC) Count 10.8 thou/uL (4.8-10.8)
[2019-08-02] MEDS: Potassium Chloride 40 MEQ in Premix Bag 1 BAG IVPB PRN ×2 (06:05→08:20)
[2019-08-02 07:01] LABS: Cardiac Risk 6.2 (Less than 4.5); Cholesterol 99 mg/dl (< 200 Desired); HDL Cholesterol 16 mg/dL (>60 Neg Risk); LDL Cholesterol, Calculated 72 mg/dL; Phosphorus 3.5 mg/dL (2.3-4.7); Triglycerides 54 mg/dL (Less than 150)
--- NOTE | 2019-08-02 08:04 | RAD ---
RADIOGRAPH CHEST 1 VIEW: DATE: 08/02/2019 TIME: 5:28 AM HISTORY: 69-year-old male follow-up pneumonia COMPARISON: 07/30/2019 FINDINGS: Elevated right hemidiaphragm. 2 right-sided chest tubes. No pneumothorax visible. No consolidation or pulmonary edema. Mild pulmonary hazy densities in right lung. Left lung relatively clear. Left subclavian central venous catheter and left-sided PICC. No interval change. IMPRESSION: No major interval change
[2019-08-02] MEDS: Furosemide 20 MG/2 ML VIAL SLOW IVP SCH ×3 (08:19→21:17)
[2019-08-02] MEDS: Pantoprazole 40 MG VIAL IVP SCH (08:21)
--- NOTE | 2019-08-02 08:51 | PRG ---
DATE OF SERVICE: 08/02/2019 SUBJECTIVE: Mr. Rivera is feeling better. He is in good spirits. He had no acute complaints. He still has the 2 chest tubes placed on the right. I do not see an air leak today. OBJECTIVE: VITAL SIGNS: Temperature 98.6, pulse 97, blood pressure 129/72, O2 saturation 99%. HEENT: Unremarkable. NECK: No adenopathy or JVD. CHEST: Clear. He still has a minor amount of flailing when he inhales. ABDOMEN: Soft and nontender. EXTREMITIES: No edema LABORATORY DATA: His chest x-ray shows some atelectasis in the right base, but overall lung mejias are clear. White blood cell count 10.8, hematocrit 25.7, and platelet count 402. Sodium 130, potassium 3.3, chloride 106, CO2 of 25, BUN 24, creatinine 0.5, and glucose 99. ASSESSMENT: 1. Right pneumothorax. 2. Flail chest after cardiopulmonary resuscitation. 3. Status post adhesiolysis. PLAN: 1. Hopefully chest tubes can come out. 2. Continue antibiotics per General Surgery. 3. Up in a chair as tolerated. Job ID: [id number]
--- NOTE | 2019-08-02 15:18 | PRG ---
DATE OF SERVICE: 08/02/2019 SUBJECTIVE: Mr. Rivera is resting comfortably in his bed in the intensive care unit. He is in good spirits today. He notes minimal pain. Over the weekend, he initially was tolerating his tube feeds uneventfully. At some point, he was recognized to have what appeared to be some enteric drainage from his midline wound. His tube feeds were thereafter discontinued. There is reportedly a small volume of some enteric appearing drainage from the wound. There is no drainage that is concerning in his wound VAC canister currently. His chest x-ray looks dramatically better than it did last week. His air leak in both chest tubes has resolved. OBJECTIVE: VITAL SIGNS: On examination, he remains afebrile. His pulse is between 94 and 109. Blood pressure is 140/70. LUNGS: Clear to auscultation and much improved on the right compared to last week. CARDIAC: Regular rate and rhythm. ABDOMEN: Has bowel sounds present. There is serous drainage coming from the right-sided ARGELIA drain. Wound VAC is intact over the midline wound. His jejunostomy tube is still present in the left abdomen and this is clamped. His urine output was 3700 mL yesterday. Chest tube drainage has been minimal. He did have a bowel movement yesterday and today. LABORATORY DATA: His electrolytes are essentially normal, except for a low potassium level of 3.3. His calcium levels are little bit low at 7.7. His pre-albumin is still low, but it is up to 14 (from 10 last week). His most recent albumin level was 2.4 on July 30. CBC shows a hemoglobin level of 8.3, white blood cell count is 10.8, platelet count is 402. ASSESSMENT AND PLAN: He appears to be stable. I am, of course, concerned about potential enteric drainage from his wound, as this would potentially indicate an enterocutaneous fistula. I will check this with his dressing change tomorrow. Tube feeds will be held in the interim. I removed his lower chest tube today. His upper chest tube remains in place. If drainage remains low, then I would hopefully place this to water-seal this evening and potentially remove it tomorrow. I will check his abdominal wound with the Wound Care team tomorrow. Otherwise, we will continue his current TPN, Zosyn, and Diflucan. Job ID: [id number]
[2019-08-02] MEDS: SODIUM CHLORIDE IV SCH (15:58)
[2019-08-02] MEDS: FAT EMULSION IV SCH (15:58)
[2019-08-02] MEDS: SODIUM ACETATE IV SCH (15:58)
[2019-08-02] MEDS: [UNRECOGNIZED DRUG - OTHER] IV SCH (15:58)
[2019-08-02] MEDS: Fluconazole In NaCl,Iso-Osm 200 MG in Premix Bag 1 BAG IVPB SCH (18:27)
[2019-08-02] MEDS: Enoxaparin Sodium 40 MG/0.4 ML SYRINGE SC SCH (21:17)
[2019-08-02] MEDS: Zolpidem Tartrate 5 MG TAB PO PRN (21:18)
[2019-08-03] MEDS: Piperacillin/Tazobactam 3.375 GM in Sodium Chloride 0.9% 100 ML IVPB SCH ×5 (00:18→23:19)
[2019-08-03] MEDS: Lactated Ringer's 1,000 ML IV SCH ×2 (03:10→18:26)
[2019-08-03 04:22] LABS: #Basophils 0.1 thou/uL (0.0-0.2); #Eosinphils 0.6 thou/uL (0.0-0.7); #Lymphocytes 1.4 thou/uL (1.20-3.40); #Monocytes 0.5 thou/uL (0.11-0.59); #Neutrophils 7.3 thou/uL (1.40-6.50); %Basophils 0.7 % (0.0-1.0); %Eosinophils 5.7 % (0.0-10.0); %Lymphocytes 14.3 % (21.0-51.0); %Monocytes 5.5 % (0.0-10.0); %Neutrophils 73.8 % (42.0-75.0); Hemoglobin 9.6 g/dL (14.0-18.0); Mean Corpuscular HGB CONC 32.2 g/dL (32.0-36.0); Mean Corpuscular Hemoglobin 28.5 pg (27.0-31.0); Mean Corpuscular Volume 88.5 fL (78.0-98.0); Mean Platelet Volume 7.4 fL (7.4-10.4); Platelet Count 409 thou/uL (130-400); RBC Distribution Width 19.1 % (11.5-14.5); Red Blood Cell (RBC) Count 3.35 mill/uL (4.70-6.10); White Blood Cell (WBC) Count 9.9 thou/uL (4.8-10.8)
[2019-08-03 04:30] LABS: Anion Gap 14 mmol/L (10-20); BUN (Urea Nitrogen) 22 mg/dL (8.4-25.7); Calc. Creatinine Clearance 131 mL/min (70-130); Calcium 7.6 mg/dL (7.8-10.44); Carbon Dioxide 20 mmol/L (23-31); Chloride 106 mmol/L (98-107); Estimated GFR-MDRD Greater than 90; Glucose 106 mg/dL (83-110); Potassium 3.5 mmol/L (3.5-5.1); Sodium 136 mmol/L (136-145)
--- NOTE | 2019-08-03 08:47 | RAD ---
PORTABLE CHEST: Date: 08/03/2019 HISTORY: Follow-up of pneumonia. COMPARISON: Prior day's exam. FINDINGS: Right-sided chest tube directed into the right lung apex is stable in appearance. The second chest tu be which was in the right base has been removed. Left-sided subclavian PICC lines are present. Parenc hymal lung changes are stable. IMPRESSION: Interval removal of one of the right-sided chest tubes. POS: [facility]
[2019-08-03] MEDS: Furosemide 20 MG/2 ML VIAL SLOW IVP SCH ×3 (08:56→21:10)
[2019-08-03] MEDS: Pantoprazole 40 MG VIAL IVP SCH (08:57)
[2019-08-03] MEDS: SODIUM CHLORIDE IV SCH (14:57)
[2019-08-03] MEDS: [UNRECOGNIZED DRUG - OTHER] IV SCH (14:57)
[2019-08-03] MEDS: FAT EMULSION IV SCH (14:57)
[2019-08-03] MEDS: SODIUM ACETATE IV SCH (14:57)
[2019-08-03] MEDS: Fluconazole In NaCl,Iso-Osm 200 MG in Premix Bag 1 BAG IVPB SCH (18:55)
[2019-08-03] MEDS: Enoxaparin Sodium 40 MG/0.4 ML SYRINGE SC SCH (21:10)
[2019-08-03] MEDS: Zolpidem Tartrate 5 MG TAB PO PRN ×2 (21:10→23:14)
--- NOTE | 2019-08-04 03:04 | CON ---
DATE OF CONSULTATION: 08/03/2019 HISTORY OF PRESENT ILLNESS: Mr. Rivera is still confused. He has no complaints. He said he was going to run home for a little while and then he would be right back. PHYSICAL EXAMINATION: VITAL SIGNS: Heart rate is 106, blood pressure 145/85, respiratory rate in the 20s. STERNUM: The dyssynchrony of his sternum is much less apparent today than it was last week. LUNGS: Clear. He appears to be adequately clearing secretions. HEART: Regular rhythm. ABDOMEN: Soft. EXTREMITIES: Without edema. LABORATORY DATA: White count 9.9, hemoglobin 9.6, platelets 409,000. Sodium 136, potassium 3.5, chloride 106, bicarb 20, BUN 22, creatinine 0.56. IMPRESSION: Respiratory failure associated with flail chest after code in the operating room. Overall, he is handling his secretions reasonably well, but is weak and continues with TPN. Job ID: [id number] MTDD
[2019-08-04 05:35] LABS: #Basophils 0.1 thou/uL (0.0-0.2); #Eosinphils 0.6 thou/uL (0.0-0.7); #Lymphocytes 1.4 thou/uL (1.20-3.40); #Monocytes 0.5 thou/uL (0.11-0.59); #Neutrophils 6.2 thou/uL (1.40-6.50); %Basophils 0.6 % (0.0-1.0); %Eosinophils 7.2 % (0.0-10.0); %Lymphocytes 15.6 % (21.0-51.0); %Monocytes 6.1 % (0.0-10.0); %Neutrophils 70.6 % (42.0-75.0); Hemoglobin 10.4 g/dL (14.0-18.0); Mean Corpuscular HGB CONC 30.9 g/dL (32.0-36.0); Mean Corpuscular Hemoglobin 27.7 pg (27.0-31.0); Mean Corpuscular Volume 89.6 fL (78.0-98.0); Mean Platelet Volume 7.1 fL (7.4-10.4); Platelet Count 476 thou/uL (130-400); RBC Distribution Width 20.1 % (11.5-14.5); Red Blood Cell (RBC) Count 3.77 mill/uL (4.70-6.10); White Blood Cell (WBC) Count 8.8 thou/uL (4.8-10.8)
[2019-08-04 05:55] LABS: Anion Gap 14 mmol/L (10-20); BUN (Urea Nitrogen) 22 mg/dL (8.4-25.7); Calc. Creatinine Clearance 132 mL/min (70-130); Calcium 7.9 mg/dL (7.8-10.44); Carbon Dioxide 21 mmol/L (23-31); Chloride 106 mmol/L (98-107); Estimated GFR-MDRD Greater than 90; Glucose 95 mg/dL (83-110); Potassium 3.5 mmol/L (3.5-5.1); Sodium 137 mmol/L (136-145)
[2019-08-04] MEDS: Piperacillin/Tazobactam 3.375 GM in Sodium Chloride 0.9% 100 ML IVPB SCH ×2 (06:38→12:41)
--- NOTE | 2019-08-04 09:11 | RAD ---
PORTABLE CHEST: HISTORY: Chest tube followup. COMPARISON: 08/03/2019. FINDINGS: The right chest tube has been removed. Elevated right hemidiaphragm again noted. Mild bibasilar ate lectasis. Calcified granuloma in the right upper lung. There are 2 central lines via the left subcl maria isabel vein, one a PICC line from the left upper extremity. These are unchanged in position. No evidence of significant pneumothorax identified. IMPRESSION: Right chest tube has been removed. Elevated right hemidiaphragm is stable. No acute interval change . POS: [facility]
[2019-08-04] MEDS: Pantoprazole 40 MG VIAL IVP SCH (10:03)
[2019-08-04] MEDS: Furosemide 20 MG/2 ML VIAL SLOW IVP SCH ×3 (10:03→20:39)
--- NOTE | 2019-08-04 12:41 | PRG ---
DATE OF SERVICE: 08/04/2019 SUBJECTIVE: Mr. Rivera is resting comfortably in his bed in the intermediate care unit. He was transferred here 2 days ago. Yesterday, his final right-sided chest tube was removed. His chest x-ray today shows no ill effects from that. There is no evidence of fluid collection or pneumothorax. He is breathing comfortably. Yesterday with his dressing change, he clearly had enteric drainage coming from the inferior aspect of the abdominal wound. The remainder of his abdomen was benign. He was afebrile and his vital signs and laboratory studies were unchanged. He appears, therefore, to have a controlled leak at the anterior abdominal wall. This is unfortunate as he is now 14 days out from surgery. I had hoped that with a final pass, the point that a leak could develop. His ARGELIA drain is draining clear serous fluid and is not associated with any area of enteric leak. He is in good spirits and denies any significant discomfort. He still has a SURGICAL PATHOLOGIST, but he is rarely using it. He is continued on Diflucan and Zosyn since his surgery. OBJECTIVE: VITAL SIGNS: On examination, he remains afebrile. His maximum temperature from yesterday was 99.7, pulse is slightly elevated at 112, blood pressure is 125/80. LUNGS: Clear to auscultation anteriorly, but the breath sounds are still somewhat diminished on the right. ABDOMEN: Soft, nontender, nondistended. Bowel sounds are present and normoactive. He had a bowel movement earlier this morning. EXTREMITIES: Unremarkable. LABORATORY DATA: Electrolytes remain unremarkable. His carbon dioxide is slightly low at 21. His CBC is likewise stable with white blood cell count of 8.8 and a normal differential. Hemoglobin is stable at 10.4. ASSESSMENT: He remains overall stable and slowly improving. 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 He continues to undergo wound care with a wound VAC and he has an irrigating wound VAC to help with drainage from the wound. He will continue on TPN and his nutritional status seems to be slowly improving. I will place a Holley catheter tomorrow for long-term TPN. My eventual recommendations regarding a laparotomy in 3 or 4 months has not changed. When he is stable, I would anticipate discharge to a swing bed or a [facility] facility. He may eventually be fine for discharge home with home TPN. Job ID: [id number]
[2019-08-04] MEDS: [UNRECOGNIZED DRUG - OTHER] IV SCH (14:15)
[2019-08-04] MEDS: SODIUM ACETATE IV SCH (14:15)
[2019-08-04] MEDS: Lactated Ringer's 1,000 ML IV SCH (14:15)
[2019-08-04] MEDS: SODIUM CHLORIDE IV SCH (14:15)
[2019-08-04] MEDS: FAT EMULSION IV SCH (14:15)
[2019-08-04] MEDS: Morphine 2 MG/ML SYRINGE SLOW IVP PRN ×2 (15:48→20:45)
--- NOTE | 2019-08-04 16:13 | PRG ---
DATE OF SERVICE: 08/04/2019 SUBJECTIVE: Max Rivera is in no distress. I met with his daughter and answered her questions. OBJECTIVE: VITAL SIGNS: Heart rate 111, blood pressure 125/80, respiratory rates in the teens. GENERAL: He is still intermittently confused. LUNGS: Clear. HEART: Regular rhythm. ABDOMEN: Soft. ASSESSMENT AND PLAN: Probably does not do well with Ambien per my discussion with the daughter, might be better to switch him to Restoril. She says he has a history of not doing well with Ambien. We will give him a low-dose Restoril tonight. Otherwise, he is stable. He still has a flail chest, but his mechanics have improved. There are no clinical signs or symptoms of pneumonia at this time. Job ID: [id number]
[2019-08-04] MEDS: Enoxaparin Sodium 40 MG/0.4 ML SYRINGE SC SCH (20:39)
[2019-08-05] MEDS: Temazepam 15 MG CAP PO PRN ×2 (00:42→22:27)
[2019-08-05] MEDS: Morphine 2 MG/ML SYRINGE SLOW IVP PRN ×5 (01:28→20:15)
--- NOTE | 2019-08-05 09:50 | RAD ---
AP CHEST: Date: 08/05/2019 INDICATION: Chest tube follow-up. COMPARISON: 08/04/2019. FINDINGS: Elevated right hemidiaphragm again noted. No evidence of pneumothorax or acute infiltrate. Central li candice are unchanged. IMPRESSION: Stable chest. POS: AGW
[2019-08-05] MEDS: Pantoprazole 40 MG VIAL IVP SCH (10:00)
[2019-08-05] MEDS: Furosemide 20 MG/2 ML VIAL SLOW IVP SCH (10:00)
[2019-08-05] MEDS ORDERED: Lidocaine 1% (PF) 30 ML VIAL ONE (11:10)
[2019-08-05] MEDS ORDERED: Bupivacaine 0.25% HCL 30 ML VIAL ONE (11:10)
[2019-08-05] MEDS ORDERED: Lidocaine 1% w/Epinephrine 1:100K 20 ML VIAL ONE (11:10)
[2019-08-05] MEDS ORDERED: Fentanyl 100 MCG/2 ML VIAL ONE (11:15)
[2019-08-05] MEDS ORDERED: PROPOFOL 20 ML ONE (11:15)
--- NOTE | 2019-08-05 14:02 | RAD ---
PORTABLE CHEST 1 VIEW: Date: 08/05/2019 Time: 1304 hours HISTORY: Central line placement. FINDINGS/IMPRESSION: There has been interval placement of a right internal jugular central venous catheter with tip in the projection of the cavoatrial junction since earlier exam at 0430 hours. No pneumothorax is seen. Rem ainder of exam is stable. POS: [facility]
[2019-08-05 14:32] VITALS: BMI 25.7
[2019-08-05] MEDS: SODIUM ACETATE IV SCH (15:05)
[2019-08-05] MEDS: [UNRECOGNIZED DRUG - OTHER] IV SCH (15:05)
[2019-08-05] MEDS: FAT EMULSION IV SCH (15:05)
[2019-08-05] MEDS: SODIUM CHLORIDE IV SCH (15:05)
--- NOTE | 2019-08-05 16:52 | PRG ---
DATE OF SERVICE: SUBJECTIVE: Mr. Rivera continues to be reasonably stable. OBJECTIVE: VITAL SIGNS: He is afebrile. Heart rate 73, respiratory rate is 20, oximetry is in the mid 90s to 100%, blood pressure 133/80. LUNGS: Clear. HEART: Regular rhythm. ABDOMEN: Soft. ASSESSMENT AND PLAN: He has a right internal jugular Holley catheter that was placed today. chest is currently stable. We will probably see him a little less frequently. Please call if any problems arise from pulmonary perspective. Job ID: [id number]
--- NOTE | 2019-08-05 19:06 | PRG ---
DATE OF SERVICE: 08/05/2019 SUBJECTIVE: Mr. Rivera was seen this morning while he was still in the intermediate care unit. He has subsequently had a Holley catheter placed and been transferred to the medical floor. He had no complaints this morning. He denied pain. He told me he was breathing comfortably. His wound VAC was changed today. There is no evidence of pooling of enteric material within the wound and the wound was reported to look good with appropriate healing. OBJECTIVE: VITAL SIGNS: He is afebrile. Pulse is in the low 100s. Blood pressure 130/80. GENERAL: He is voiding without difficulty. He had a bowel movement last night. LUNGS: Clear to auscultation. ABDOMEN: Soft and nontender. Wound VAC is in place over his midline abdominal wound. Bowel sounds are present and normoactive. LABORATORY DATA: No labs were obtained today. ASSESSMENT: The patient is doing well and making slow continued improvement. Today, I placed a right internal jugular Holley catheter. This will be for long-term total parenteral nutrition as he is expected to need this for at least 3 months. His left arm peripherally inserted central catheter line was removed today. In recent days, both of his right-sided chest tubes and his right abdominal Blaine-Christianson drain were removed. As mentioned, his De La Rosa catheter was removed as well. He still has in place a left subclavian central line as well as his right internal jugular Holley catheter. I would anticipate removing his central line tomorrow. His chest x-ray is stable without pneumothorax or evidence of significant effusion on either side. In summary, he is improving slowly, but surely. PLAN: Continue his TPN. 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 The fistula may or may not close and either way, this will be addressed with his subsequent surgery in 3 months. This has all been discussed with the patient and his today. Job ID: [id number]
[2019-08-05] MEDS: Enoxaparin Sodium 40 MG/0.4 ML SYRINGE SC SCH (20:15)
--- NOTE | 2019-08-05 21:25 | OP ---
DATE OF PROCEDURE: 08/05/2019 PREOPERATIVE DIAGNOSIS: Need for long-term TPN. POSTOPERATIVE DIAGNOSIS: Need for long-term TPN. PROCEDURES PERFORMED: Attempted right subclavian double-lumen Holley catheter placement, successful right internal jugular double-lumen catheter placement. ANESTHESIA: Total intravenous anesthesia with local using a mixture of 1% lidocaine with epinephrine and 0.25% Marcaine. INDICATIONS: The patient is a 69-year-old white male. 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 He will require long-term TPN to allow his abdomen to heal appropriately before considering proceeding with subsequent abdominal surgery. A Holley catheter is being placed for this purpose. DESCRIPTION OF PROCEDURE: Informed consent was obtained, the patient was taken to the operating room, where total intravenous anesthesia obtained with the patient in supine position. Right chest and neck were prepped with ChloraPrep and draped in sterile fashion. Local anesthetic was infiltrated and large gauge needle was advanced under the clavicle in the subclavian vein. Guidewire was passed through this needle and this ended in the superior vena cava. A counter incision was created inferior on the chest. The Holley catheter was tunneled between the counter incision and the needle insertion site, leaving the Dacron cuff in the subcutaneous tract. Introducer dilator was passed uneventfully over the guidewire. When I attempted to advance the catheter into the introducer, the catheter would not advance until the introducer was somewhat withdrawn. Apparently, by the time that the catheter was advanced, the introducer was withdrawn sufficiently that the catheter was able to proceed up the internal jugular vein rather than down the superior vena cava. I attempted to remedy this by passing a guidewire through the Holley catheter. I was able to slowly advanced to the tip of the catheter, but when I began to withdraw the catheter, unfortunately the entire complex flipped out of the chest incision necessitating further venous access. I attempted to pass a needle into the subclavian vein again, but without success. I thereafter turned my attention to the right internal jugular vein. Ultrasound was utilized to identify the right internal jugular vein. Local anesthetic was infiltrated and large gauge needle was advanced uneventfully into the internal jugular vein. A guidewire was passed through this easily. Needle was removed. Incision was created in the needle insertion site. A new double-lumen Holley catheter was tunneled from the right chest wall for a subcutaneous tract up to the internal jugular vein access site. The catheter was trimmed to appropriate length. The introducer dilator was passed over the guidewire. Catheter was advanced uneventfully into the introducer, which was removed in the usual peel-apart fashion. The two lumens of the catheter aspirated blood freely and was flushed with heparinized saline. Catheter was secured at skin exit site with 3-0 nylon suture. The two skin incisions, one on the chest wall and one on the neck were each closed in layers with 4-0 Monocryl suture. Dermabond was placed externally at both incision sites as well as the catheter exit site. A sterile occlusive dressing was applied over the catheter exit site. There were no complications. The patient tolerated the procedure well and was taken to recovery room in stable condition. Job ID: [id number]
[2019-08-05] MEDS: Lactated Ringer's 1,000 ML IV SCH (22:26)
[2019-08-06] MEDS: Morphine 2 MG/ML SYRINGE SLOW IVP PRN ×5 (06:24→22:41)
[2019-08-06 09:35] LABS: #Basophils 0.1 thou/uL (0.0-0.2); #Eosinphils 0.5 thou/uL (0.0-0.7); #Lymphocytes 1.2 thou/uL (1.20-3.40); #Monocytes 0.5 thou/uL (0.11-0.59); #Neutrophils 5.5 thou/uL (1.40-6.50); %Eosinophils 6.9 % (0.0-10.0); %Lymphocytes 15.6 % (21.0-51.0); %Monocytes 6.4 % (0.0-10.0); %Neutrophils 70.1 % (42.0-75.0); Hemoglobin 8.7 g/dL (14.0-18.0); Mean Corpuscular HGB CONC 32.2 g/dL (32.0-36.0); Mean Platelet Volume 6.9 fL (7.4-10.4); Platelet Count 444 thou/uL (130-400); RBC Distribution Width 19.6 % (11.5-14.5); Red Blood Cell (RBC) Count 3.01 mill/uL (4.70-6.10); White Blood Cell (WBC) Count 7.8 thou/uL (4.8-10.8)
[2019-08-06 09:53] LABS: ALT (SGPT) 29 U/L (8-55); AST (SGOT) 29 U/L (5-34); Albumin 2.5 g/dL (3.4-4.8); Alkaline Phosphatase 239 U/L (40-110); Anion Gap 10 mmol/L (10-20); BUN (Urea Nitrogen) 20 mg/dL (8.4-25.7); Bilirubin, Total 0.3 mg/dL (0.2-1.2); Calc. Creatinine Clearance 161 mL/min (70-130); Calcium 7.9 mg/dL (7.8-10.44); Carbon Dioxide 23 mmol/L (23-31); Chloride 107 mmol/L (98-107); Estimated GFR-MDRD Greater than 90; Globulin 3.3 g/dL (2.4-3.5); Glucose 127 mg/dL (83-110); Magnesium 1.9 mg/dL (1.6-2.6); Phosphorus 3.6 mg/dL (2.3-4.7); Potassium 4.3 mmol/L (3.5-5.1); Protein, Total 5.8 g/dL (5.8-8.1); Sodium 136 mmol/L (136-145)
[2019-08-06] MEDS: Pantoprazole 40 MG VIAL IVP SCH (10:16)
[2019-08-06] MEDS: Furosemide 40 MG TAB PO SCH (10:17)
[2019-08-06] MEDS ORDERED: Furosemide 40 MG TAB PO SCH (10:45)
[2019-08-06] MEDS: [UNRECOGNIZED DRUG - OTHER] IV SCH (14:34)
[2019-08-06] MEDS: FAT EMULSION IV SCH (14:34)
[2019-08-06] MEDS: SODIUM ACETATE IV SCH (14:34)
[2019-08-06] MEDS: SODIUM CHLORIDE IV SCH (14:34)
--- NOTE | 2019-08-06 15:52 | PRG ---
DATE OF SERVICE: 08/06/2019 SUBJECTIVE: Mr. Rivera is postoperative day #1 from right internal jugular Holley catheter placement, postoperative day #16 from laparotomy, small-bowel resection, repair of fascial dehiscence. He also coded during that surgery requiring CPR with chest compressions that resulted in numerous right-sided rib fractures. This resulted in a pneumothorax, for which he had chest tubes placed. He has been out now for several days and there was no evidence of recurrent pneumothorax. 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 This is being appropriately managed with an irrigating wound VAC. I am told that he has limited physical activity. He is n.p.o. except for medications with sips of water secondary to his enteric fistula. He continues to receive TPN. I discontinued his intravenous antibiotics yesterday as there was no evidence of either intraabdominal sepsis. His left arm PICC line was removed yesterday. His left subclavian central line will be removed today. His right subclavian Holley catheter will be his IV access over the next few months. He currently has no significant complaints. OBJECTIVE: VITAL SIGNS: On examination, he is afebrile. Pulse is 109, blood pressure is 133/83. LUNGS: Clear to auscultation anteriorly. ABDOMEN: Soft, nontender, nondistended with wound VAC dressing intact over his midline wound, over the retention sutures. Bowel sounds are present and normoactive. There is no tenderness in any location. LABORATORY DATA: CBC reveals a white blood cell count of 7.8. His hemoglobin has dropped over the last couple of days from 10.4 down to 8.7. His chemistries revealed normal electrolytes. His albumin is up from 2.4 to 2.5. His pre-albumin is up from 14.0 to 15.0. ASSESSMENT: He is stable and progressing appropriately following his numerous problems. I plan to observe him over the weekend with wound care and TPN. I would continue to keep him essentially n.p.o. except for sips and chips. All of his medications that are possible will be switched to oral medications. I will recheck labs on Friday. If these are stable, and he has had a stable weekend, then I would anticipate transfer to [facility]. Again, I anticipate repeat abdominal surgery on him in about 3 to 4 months. Job ID: [id number]
[2019-08-06] MEDS: Enoxaparin Sodium 40 MG/0.4 ML SYRINGE SC SCH (21:01)
[2019-08-06] MEDS: Temazepam 15 MG CAP PO PRN (21:01)
[2019-08-07] MEDS: Morphine 2 MG/ML SYRINGE SLOW IVP PRN ×4 (03:13→21:47)
[2019-08-07] MEDS: Furosemide 40 MG TAB PO SCH (09:30)
--- NOTE | 2019-08-07 13:48 | PRG ---
DATE OF SERVICE: 08/07/2019 SUBJECTIVE: Mr. Rivera was seen today for Dr. Ahmadi. The patient is doing well. He is on TPN. He has a wound VAC to control his enterocutaneous fistula. He is ambulatory. He is wearing a diaper and urinating a urinal. The patient states that he wants to leave the hospital soon. Arrangements were made to leave Friday 2 days from now. OBJECTIVE: VITAL SIGNS: The patient is afebrile, 98.4 degrees, respiratory rate 20, and blood pressure 122/80. LUNGS: Clear to auscultation. CARDIAC: Regular rate and rhythm. No murmur, rub, or gallop. ABDOMEN: Soft, nontender, nondistended. LABORATORY DATA: None. ASSESSMENT AND PLAN: Enterocutaneous fistula, treated with wound VAC and TPN. Continue treatment. Job ID: [id number]
[2019-08-07] MEDS: SODIUM ACETATE IV SCH (14:56)
[2019-08-07] MEDS: FAT EMULSION IV SCH (14:56)
[2019-08-07] MEDS: SODIUM CHLORIDE IV SCH (14:56)
[2019-08-07] MEDS: [UNRECOGNIZED DRUG - OTHER] IV SCH (14:56)
[2019-08-07] MEDS: Enoxaparin Sodium 40 MG/0.4 ML SYRINGE SC SCH (21:46)
[2019-08-07] MEDS: Temazepam 15 MG CAP PO PRN (21:47)
[2019-08-08] MEDS: Morphine 2 MG/ML SYRINGE SLOW IVP PRN ×4 (05:25→20:34)
[2019-08-08] MEDS: Furosemide 40 MG TAB PO SCH (08:19)
--- NOTE | 2019-08-08 13:24 | PRG ---
DATE OF SERVICE: 08/08/2019 SUBJECTIVE: Max Rivera is doing well today. He is tolerating Treatment well. TPN is infusing. Wound VAC in place. He has no new complaints. OBJECTIVE: VITAL SIGNS: Stable, afebrile. PLAN: Transfer to swing bed tomorrow. Job ID: [id number]
[2019-08-08] MEDS: SODIUM ACETATE IV SCH (14:51)
[2019-08-08] MEDS: SODIUM CHLORIDE IV SCH (14:51)
[2019-08-08] MEDS: [UNRECOGNIZED DRUG - OTHER] IV SCH (14:51)
[2019-08-08] MEDS: FAT EMULSION IV SCH (14:51)
[2019-08-08] MEDS: Enoxaparin Sodium 40 MG/0.4 ML SYRINGE SC SCH (20:34)
[2019-08-08] MEDS: Temazepam 15 MG CAP PO PRN (20:34)
[2019-08-09] MEDS: Morphine 2 MG/ML SYRINGE SLOW IVP PRN (00:37)
[2019-08-09 06:50] LABS: #Basophils 0.1 thou/uL (0.0-0.2); #Eosinphils 0.5 thou/uL (0.0-0.7); #Lymphocytes 1.4 thou/uL (1.20-3.40); #Monocytes 0.6 thou/uL (0.11-0.59); #Neutrophils 5.8 thou/uL (1.40-6.50); %Basophils 0.7 % (0.0-1.0); %Monocytes 6.8 % (0.0-10.0); %Neutrophils 69.5 % (42.0-75.0); ALT (SGPT) 23 U/L (8-55); AST (SGOT) 20 U/L (5-34); Albumin 2.7 g/dL (3.4-4.8); Alkaline Phosphatase 265 U/L (40-110); Anion Gap 11 mmol/L (10-20); Anisocytosis SLIGHT = 6-15 cells (100X) (0-5/hpf); BUN (Urea Nitrogen) 23 mg/dL (8.4-25.7); Bilirubin, Total 0.5 mg/dL (0.2-1.2); Calc. Creatinine Clearance 141 mL/min (70-130); Calcium 7.9 mg/dL (7.8-10.44); Carbon Dioxide 26 mmol/L (23-31); Chloride 105 mmol/L (98-107); Estimated GFR-MDRD Greater than 90; Globulin 3.5 g/dL (2.4-3.5); Glucose 88 mg/dL (83-110); Hemoglobin 9.5 g/dL (14.0-18.0); MDiff Complete? YES; Mean Corpuscular HGB CONC 33.3 g/dL (32.0-36.0); Mean Corpuscular Hemoglobin 29.6 pg (27.0-31.0); Mean Corpuscular Volume 88.8 fL (78.0-98.0); Mean Platelet Volume 6.8 fL (7.4-10.4); Platelet Count 464 thou/uL (130-400); Platelet Morphology Comment Appears Increased; Potassium 3.8 mmol/L (3.5-5.1); Protein, Total 6.2 g/dL (5.8-8.1); RBC Distribution Width 19.7 % (11.5-14.5); Red Blood Cell (RBC) Count 3.21 mill/uL (4.70-6.10); Sodium 138 mmol/L (136-145); White Blood Cell (WBC) Count 8.3 thou/uL (4.8-10.8)
[2019-08-09] MEDS: Furosemide 40 MG TAB PO SCH (08:23)
[2019-08-09] MEDS: HYDROcodone/Acetaminophen 5/325 mg Tablet PO PRN ×2 (11:02→14:51)
--- NOTE | 2019-08-09 11:11 | DIS ---
DATE OF ADMISSION: 07/16/2019 DATE OF DISCHARGE: 08/09/2019 ADMISSION DIAGNOSIS: Small bowel obstruction following prior repair of colotomy, malnutrition. 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 PROCEDURES PERFORMED: On July 20, performed exploratory laparotomy with extensive lysis of adhesions (about 2-1/2 hours), segmental small bowel resection, repair of fascial dehiscence with placement of retention sutures, placement of left subclavian 7-Mongolian triple-lumen central line, administration of CPR with chest compressions and chemical resuscitation for 2 minutes, placement of right chest tube on July 20, placement of a second right chest tube on July 27, placement of right internal jugular Holley catheter on August 04. ADMISSION HISTORY: The patient is an unfortunate 69-year-old white male who was known to myself from recent surgery. On June 30 of this year, I performed exploratory laparotomy with repair of sigmoid colon perforation. At that time, I also placed a feeding jejunostomy tube. His colon perforation was subsequent to a colonoscopy performed without biopsy. Unfortunately, he was unable to tolerate his tube feeds after he was discharged home and returned to the hospital on July 15, about 2 weeks out from his initial surgery with what appeared to be a small-bowel obstruction. This was treated without a nasogastric tube (secondary to his gastric outlet obstruction) and seemed to improve initially. I was, however, not able to advance tube feeds without severe bloating and symptoms of recurrent obstruction. After discussion of options and potential risks, on July 20, he was returned to the operating room to address his small bowel obstruction and potentially address his gastric outlet obstruction. Unfortunately, he was recognized to have dense intraabdominal adhesions and severely deconditioned tissues leading to a very friable small bowel that resulted in multiple enterotomies during the course of attempted lysis of adhesions. I was unable in any fashion to address his gastric outlet obstruction. I resected about a foot and a half of small intestine with primary anastomosis and repaired his fascial dehiscence. He remained in the intensive care unit thereafter. He had coded at the end of his surgery when a central line was being placed leading to asystole which required CPR, which resulted in numerous rib fractures, which resulted in a pneumothorax. Chest tube was placed when pneumothorax was recognized. He was followed by Pulmonary Medicine in the ICU. He was extubated, however, he was recognized to have some degree of persistent pneumothorax for about a week after I placed his initial chest tube, I had to place a second chest tube superiorly. This did result in complete resolution of his pneumothorax. I was thereafter able to remove both chest tubes. He has been receiving TPN since his admission. He initially received this through a PICC line in his left arm. He has subsequently received this through a left chest central line. He is now receiving it through a Holley catheter which I placed on August 04. Last week, he was recognized to have an enteric fistula into his wound. This was unfortunate as it developed over two weeks after his surgery. It was recognized, however, that even if his bowel obstruction had resolved, that I would not be able to give him an enteric nutrition in light of his fistula. He was noted to be severely anemic during his hospitalization and had very low iron levels. He was given intravenous iron with a course at least once during this hospitalization. His intravenous antibiotics were discontinued last week as he had no infectious indications and his enteric fistula was draining into his abdominal wound with the remainder of his abdomen entirely benign without evidence of sepsis. With him off antibiotics, he has remained afebrile with normal vital signs. His white blood cell count remains normal with an essentially normal differential. His electrolytes are entirely normal on his current TPN. His albumin has slowly been rising with TPN administration and his albumin has gone from 1.8 on July 22 up to 2.7 currently. His pre-albumin is normal for the first time today. On July 17, he had a prealbumin of less than 5. His prealbumin today is 17. He was severely edematous and he was aggressively diuresed after he was hemodynamically stable. His intravenous diuresis has been discontinued and he continues to receive oral Lasix once per day. Even though he has a gastric outlet obstruction, he does tolerate oral medications with sips of water. He has been maintained on proton pump inhibitors and anticoagulants throughout his hospitalization. He is to be transferred today to a swing bed in [place] under the care of Dr. Gera Huggins. I have already had a conversation with him regarding the patient's hospital course. He is to continue his current TPN regimen and his current wound care with irrigating wound VAC. He is not able to tolerate oral or enteral nutrition through his jejunostomy tube and it should not be initiated. He will continue to require physical therapy to help with strengthening. My surgical plan for him is to readdress his abdomen when he is three or four months out from his recent surgery. My hopes would be that at that time, I would be able to address his gastric outlet obstruction. He should remain on intravenous nutritional support until that time. I have discussed all this in detail with the patient and his family. I see early signs of frustration that are to be anticipated with any long-term course of care, but I also explained that there is no other good option at this juncture. I would like to see him back in three weeks, so I can reassess his nutritional status and healing of his wound. I indicated to Dr. Huggins than I am happy to be involved in his care at any time. Job ID: [id number]
[2019-08-09 14:33] VITALS: BP 122/82; TEMP 97.9
[2019-08-09] MEDS: FAT EMULSION IV SCH (14:34)
[2019-08-09] MEDS: [UNRECOGNIZED DRUG - OTHER] IV SCH (14:34)
[2019-08-09] MEDS: SODIUM CHLORIDE IV SCH (14:34)
[2019-08-09] MEDS: SODIUM ACETATE IV SCH (14:34)
== END 2019-08-09 15:20 | disposition swing bed (61) | DRG 329 ==
LOC: ERS 10:43 → SURG A 13:40 → CCU 07-21 14:55 → IMCU/EMU 08-02 20:16 → T4-B 08-05 14:06
PROVIDERS: ADMIT Specialist; ATTEND Specialist
PROC: 0DB80ZZ Excision of Small Intestine, Open Approach (ICD-10-PCS; principal; 2019-07-16)
PROC: 0DNU0ZZ Release Omentum, Open Approach (ICD-10-PCS; 2019-07-16)
PROC: 0JQ80ZZ Repair Abdomen Subcutaneous Tissue and Fascia, Open Approach (ICD-10-PCS; 2019-07-16)
PROC: 02HV33Z Insertion of Infusion Device into Superior Vena Cava, Percutaneous Approach (ICD-10-PCS; 2019-07-17)
PROC: B548ZZA Ultrasonography of Superior Vena Cava, Guidance (ICD-10-PCS; 2019-07-17)
PROC: 0W9900Z Drainage of Right Pleural Cavity with Drainage Device, Open Approach (ICD-10-PCS; 2019-07-21)
PROC: 5A12012 Performance of Cardiac Output, Single, Manual (ICD-10-PCS; 2019-07-25)
PROC: 0W9930Z Drainage of Right Pleural Cavity with Drainage Device, Percutaneous Approach (ICD-10-PCS; 2019-07-28)
DX: K91.30 Postprocedural intestinal obstruction, unspecified as to partial versus complete (principal); S22.5XXA Flail chest, initial encounter for closed fracture; E43 Unspecified severe protein-calorie malnutrition; E87.1 Hypo-osmolality and hyponatremia; T81.32XA Disruption of internal operation (surgical) wound, not elsewhere classified, initial encounter; J93.83 Other pneumothorax; J90 Pleural effusion, not elsewhere classified; K31.1 Adult hypertrophic pyloric stenosis; G93.40 Encephalopathy, unspecified; K63.2 Fistula of intestine; I10 Essential (primary) hypertension; E87.6 Hypokalemia; Z96.642 Presence of left artificial hip joint; Z96.652 Presence of left artificial knee joint; E87.8 Other disorders of electrolyte and fluid balance, not elsewhere classified; G89.29 Other chronic pain; E78.5 Hyperlipidemia, unspecified; K27.9 Peptic ulcer, site unspecified, unspecified as acute or chronic, without hemorrhage or perforation; I25.10 Atherosclerotic heart disease of native coronary artery without angina pectoris; I44.7 Left bundle-branch block, unspecified; J30.2 Other seasonal allergic rhinitis; R53.81 Other malaise; E78.00 Pure hypercholesterolemia, unspecified; I25.2 Old myocardial infarction; Z91.011 Allergy to milk products; Z68.26 Body mass index [BMI] 26.0-26.9, adult
CPT/HCPCS: 36415; 36416; 36430; 36569; 51701; 71045; 71260; 74018; 74177; 74250; 80048; 80053; 80061; 81003; 82805; 83540; 83605; 83735; 84100; 84134; 85025; 85610; 85730; 86850; 86900; 86901; 87040; 88307; 93005; 93010; 94002; 94003; 96361; 96365; 96375; A4217; C1751; C9113; J0171; J0690; J0694; J1100; J1450; J1642; J1644; J1650; J1815; J1940; J2001; J2270; J2370; J2405; J2543; J2550; J2704; J2795; J2916; J2997; J3010; J3370; J3475; J3480; J3490; J7030; J7050; P9016; P9045; P9047; Q9963; Q9967; S0020

== ENCOUNTER 2019-08-17 14:16 | Inpatient (IN) | payer MEDICARE ==
[2019-08-17] MEDS ORDERED: Heparin 1,000 UNITS/ML VIAL ONE (15:36)
[2019-08-17] MEDS ORDERED: Insulin Regular 300 UNITS/3 ML VIAL SC PRN (16:24)
[2019-08-17] MEDS ORDERED: Dextrose 5% in Water 1,000 ML IV PRN (16:24)
[2019-08-17] MEDS ORDERED: Dextrose 50% Abboject 50 ML SYRINGE SLOW IVP PRN (16:24)
[2019-08-17] MEDS ORDERED: hydrALAZINE 20 MG/ML VIAL SLOW IVP PRN (16:24)
[2019-08-17] MEDS ORDERED: Ondansetron ODT 4 MG TAB PO PRN (17:06)
[2019-08-17] MEDS ORDERED: Lidocaine 4% Topical Sol 50 ML BOT TOP PRN (17:08)
[2019-08-17] MEDS: Acetaminophen 325 MG TAB PO PRN (17:33)
[2019-08-17] MEDS: HYDROcodone/Acetaminophen 5/325 mg Tablet PO PRN ×2 (17:33→23:47)
[2019-08-17] MEDS: D5 0.9% NS w/ 20 mEq KCl 1,000 ML IV SCH (17:34)
[2019-08-17 18:30] VITALS: BMI 26.0
[2019-08-17] MEDS: Carvedilol 25 MG TAB PO SCH (21:42)
[2019-08-17] MEDS: Atorvastatin Calcium 40 MG TAB PO SCH (21:42)
[2019-08-17] MEDS: Enoxaparin Sodium 40 MG/0.4 ML SYRINGE SC SCH (21:46)
[2019-08-17] MEDS: Vancomycin 1 GM in Premix Bag 1 BAG IVPB SCH (21:46)
--- NOTE | 2019-08-17 23:35 | HP ---
CHIEF COMPLAINT: Bacteremia, suspected infected Holley catheter, urinary tract infection, open wound of abdomen, malnutrition, and deconditioning. ADMISSION HISTORY: Mr. Rivera is a 69-year-old white male, very well known to myself. He was discharged from this hospital on August 08, after having been admitted on July 15. He has a fairly complex medical history recently. He has a history of gastric outlet obstruction that led to a 30-pound weight loss. On June 30, I performed exploratory laparotomy with repair of a sigmoid colon perforation that occurred at the time of upper and lower endoscopy. Subsequently on July 20, he was returned to the operating room to address the small-bowel obstruction. Unfortunately, he had dense intraabdominal adhesions resulting in multiple enterotomies and a bowel resection. He was also very malnourished, and the quality of his tissue was horrible and not suitable for any significant nonemergent surgery. He also coded during that surgery requiring chest compressions that resulted in rib fractures that resulted in a right pneumothorax that required two chest tubes on the right. He subsequently healed from the surgery. He had no evidence of intraabdominal sepsis, but he did develop an enterocutaneous fistula with leaking of bowel contents into his midline abdominal wound. His wound had been left open to heal with a wound VAC. His De La Rosa catheter had been removed and he was voiding uneventfully. Both chest tubes had been removed. His PICC line and central line were removed, and I placed a Holley catheter just before he was discharged for long-term intravenous nutrition. Additionally, intraabdominal drain had been removed. He still has a jejunostomy tube in place in his left upper abdomen, although this has not been utilized as he has an enterocutaneous fistula. He was transferred to [facility] under the care of Dr. Huggins and in general, he has done well since there. He unfortunately spiked fevers, and cultures have revealed Staphylococcus epidermidis that is sensitive to vancomycin. He had a urine culture that showed both Pseudomonas and enterobacter. These were both sensitive to the Zosyn, and he was placed on this. At this time, he was transferred with no real complaints, although I was told that he felt a little short of breath earlier. He has no significant pain. He does have a diffuse body rash with some itching. He is not really certain how long this has been present. PAST MEDICAL HISTORY: Before this recent long medical saga is significant for hypertension, lower back pain, allergic rhinitis, arthritis, neuropathy, anxiety, diverticulosis, coronary artery disease with a stent placed earlier this year by Dr. Castrejon. PAST SURGICAL HISTORY: Knee replacement, hip replacement, appendectomy, hernia operation, left arm fracture in 1966, penile pump placement in 2008, and heart stent early this year. MEDICATIONS: Upon transfer from [place] include, 1. [place]. 2. Atorvastatin. 3. Carvedilol. 4. Bentyl. 5. TPN. 6. Lasix. 7. Lisinopril. 8. Zofran. 9. Protonix. 10. Carafate. ALLERGIES: TO LACTASE. PERSONAL AND SOCIAL HISTORY: He has a significant history of drinking, primarily beer. He does not smoke. He lives with his . He is retired. REVIEW OF SYSTEMS: Otherwise unremarkable. FAMILY HISTORY: Noncontributory. PHYSICAL EXAMINATION: VITAL SIGNS: He is currently afebrile with normal vital signs. GENERAL: He is resting in bed comfortably and is alert and bright. He recognizes me immediately upon entering the room. He is pleasant and conversant. HEAD, EYES, EARS, NOSE, AND THROAT: Unremarkable. NECK: Supple. LUNGS: Clear to auscultation bilaterally. CARDIAC: Regular rate and rhythm without murmur. ABDOMEN: Soft, nontender, nondistended with normoactive bowel sounds. Wound VAC is intact over his midline abdominal wound. He also has retention sutures in place. EXTREMITIES: Unremarkable. He really does not have much peripheral edema. LABORATORY DATA: His CBC from this morning revealed a white blood cell count of 7.4 with a hemoglobin of 7.8 and platelet count is 228. He has bit of a left shift. Chemistries reveal his potassium is little low at 3.2 and chloride is little high at 108. Creatinine is normal at 0.6. His albumin is still low at 2.5. ASSESSMENT: The patient, who has a recent urinary tract infection as well as bacteremia. I suspect bacteremia is because of his Holley catheter and his Holley catheter will be removed. I will leave this out for about 24 hours and ask Radiology to place a PICC line for long-term TPN. I will check his abdominal wound with a wound VAC dressing change tomorrow. Since he has a rash, I will discontinue his Zosyn and start meropenem. His vancomycin will be continued. He will hopefully have more aggressive physical therapy. He needs to be up walking regularly. The long-term hope is that in November, he can be returned to the operating room and his gastric outlet obstruction could be addressed. As of now, he has a hostile abdomen and I would not recommend doing anything for at least 3 months. Job ID: [id number]
[2019-08-17] MEDS: MEROPENEM 1 GM/50 ML 1 GM in Premix Bag 1 BAG IVPB SCH (23:46)
[2019-08-18] MEDS: D5 0.9% NS w/ 20 mEq KCl 1,000 ML IV SCH ×3 (05:23→20:29)
[2019-08-18] MEDS: MEROPENEM 1 GM/50 ML 1 GM in Premix Bag 1 BAG IVPB SCH ×3 (05:24→22:33)
[2019-08-18 06:00] LABS: ALT (SGPT) 31 U/L (8-55); AST (SGOT) 48 U/L (5-34); Albumin 2.4 g/dL (3.4-4.8); Alkaline Phosphatase 449 U/L (40-110); Anion Gap 14 mmol/L (10-20); BUN (Urea Nitrogen) 18 mg/dL (8.4-25.7); Bilirubin, Total 0.5 mg/dL (0.2-1.2); Calc. Creatinine Clearance 120 mL/min (70-130); Calcium 7.5 mg/dL (7.8-10.44); Carbon Dioxide 20 mmol/L (23-31); Chloride 110 mmol/L (98-107); Estimated GFR-MDRD Greater than 90; Globulin 3.4 g/dL (2.4-3.5); Glucose 97 mg/dL (83-110); Iron 22 ug/dL (65-175); Magnesium 1.6 mg/dL (1.6-2.6); Phosphorus 3.9 mg/dL (2.3-4.7); Potassium 3.3 mmol/L (3.5-5.1); Protein, Total 5.8 g/dL (5.8-8.1); Sodium 141 mmol/L (136-145)
--- NOTE | 2019-08-18 08:07 | RAD ---
RADIOGRAPH CHEST 1 VIEW: DATE: 08/18/2019 TIME: 7:46 AM HISTORY: 69-year-old male with dyspnea COMPARISON: 08/17/2019 FINDINGS: The right internal jugular central vascular catheter has been removed. There is no pneumothorax. The diffuse bilateral interstitial densities have completely resolved on the left, and probably also on the right. There is residual airspace density at the right midlung zone and right base. Right pleural effusion remains. Right hemidiaphragm remains elevated. Right apical pleural thickening or fluid remains. IMPRESSION: 1) interval removal of right internal jugular central venous catheter. 2) no pneumothorax. 3) interval resolution of the pulmonary interstitial edema 4) no interval change in the atelectasis volume loss of the right lung, right pleural effusion, and a pparent pleural fluid in right fissures.
[2019-08-18] MEDS: Furosemide 20 MG TAB PO SCH (09:41)
[2019-08-18] MEDS: Carvedilol 25 MG TAB PO SCH ×2 (09:41→20:32)
[2019-08-18] MEDS: Vancomycin 1 GM in Premix Bag 1 BAG IVPB SCH ×2 (09:42→20:30)
[2019-08-18] MEDS: Lisinopril 5 MG TAB PO SCH (09:42)
[2019-08-18 12:59] LABS: #Eosinphils 0.7 thou/uL (0.0-0.7); #Monocytes 0.4 thou/uL (0.11-0.59); #Neutrophils 6.4 thou/uL (1.40-6.50); %Basophils 0.1 % (0.0-1.0); %Eosinophils 8.2 % (0.0-10.0); %Lymphocytes 11.9 % (21.0-51.0); %Monocytes 4.2 % (0.0-10.0); %Neutrophils 75.6 % (42.0-75.0); Hemoglobin 8.5 g/dL (14.0-18.0); Mean Corpuscular HGB CONC 32.1 g/dL (32.0-36.0); Mean Corpuscular Volume 90.3 fL (78.0-98.0); Mean Platelet Volume 7.8 fL (7.4-10.4); Platelet Count 207 thou/uL (130-400); RBC Distribution Width 20.1 % (11.5-14.5); Red Blood Cell (RBC) Count 2.93 mill/uL (4.70-6.10); White Blood Cell (WBC) Count 8.4 thou/uL (4.8-10.8)
[2019-08-18] MEDS: HYDROcodone/Acetaminophen 5/325 mg Tablet PO PRN (14:07)
--- NOTE | 2019-08-18 15:55 | SPC ---
Exam: Left upper extremity PICC line placement with ultrasound guidance. HISTORY: Bacteremia. TPN requirement. Exposure: 2.2 minutes, 9464 mGy Successful left upper surgically PICC line placement. Dual lumen 5 [place] catheter terminates in the right atrium. Both lumens flush and aspirate without difficulty. 49 cm trim length TECHNIQUE: Consent obtained reformatory left upper extremity PICC line with ultrasound guidance. Left arm was prepped and draped in a sterile fashion. 1% lidocaine, buffered with sodium bicarbonate was used for local anesthesia. Under fluoroscopic guidance, micropuncture needle was used to cannulat e the basilic vein. A 0.018 guidewire was advanced to the level of the right atrium. Wire was surgically advanced into the inferior vena cava to document venous access. Wire was of slightly pulle d back to the right atrium. Tract was dilated. Attempt was made to pass a dual lumen 5 [place] catheter along the wire. However, the catheter would not pass beyond the midportion of the left upper extremity, the level the mid humeral diaphysis. Therefore, through the inner portion of the dilator a limited venogram was performed which demonstrated a long segment of stenosis. A patent and larger collateral is identified. Therefore under fluoroscopy, the wire was advanced into the patent large collateral. Wire was advanced to the right atrium. Tract dilatation was again performed. Dual l umen 5 [place] catheter was advanced over the wire. Wire is removed. Distal tip is in the right atrium. Both lumens flush and aspirate without difficulty. 49 cm trim length. IMPRESSION: Successful left upper extremity PICC line placement with ultrasound guidance. Transcribed Date/Time: 08/18/2019 3:59 PM
[2019-08-18] MEDS: diphenhydrAMINE 25 MG CAP PO PRN (16:22)
--- NOTE | 2019-08-18 19:00 | PRG ---
DATE OF SERVICE: 08/18/2019 SUBJECTIVE: Mr. Rivera is hospital day #2 following readmission for bacteremia. His right internal jugular Holley catheter was removed yesterday shortly after admission. He has received a couple of doses intravenous vancomycin since then. Today, a PICC line was planned for continuation of TPN. I performed his wound VAC dressing change with the wound care team today. His wound appears dramatically improved. There is no evidence of any enteric fluid or material within the wound. His midline abdominal wound has healed dramatically since he was discharged from the hospital. His three retention sutures remain intact. He has no complaints. He does note that he has some back pain. He continues to request narcotic medication for this. I am concerned that he has been receiving narcotics on a daily basis over the course of the past month or so and I fear that he is becoming habituated. I am told that he refused physical therapy and occupational therapy today. I have emphasized to him the importance of physical activity for his health to improve. PHYSICAL EXAMINATION: VITAL SIGNS: He is afebrile. He had a maximum temperature of 99.8 this morning at 7 o'clock. His pulse has largely been within the 80s, although it did jump up to 106 early this . His blood pressure is within normal . LUNGS: Clear to auscultation. CARDIAC: Regular rate and rhythm. ABDOMEN: Soft, nontender, nondistended with normoactive bowel sounds. He complains of abdominal pain, but this does not correlate with his abdominal examination. Again, his wound is healing very nicely. EXTREMITIES: Unremarkable. LABORATORY DATA: His white blood cell count is 8.4, hemoglobin is 8.5, platelet count is 207. His iron level is 22 (lower limit of normal is 65). He has electrolyte abnormalities with potassium chloride and carbon dioxide levels. His albumin is lower than when last checked. It is 2.4 today, 2.5 yesterday. It has been as high as 2.7. His prealbumin surprisingly has dropped from 17 when last checked a week ago down to 13. Not certain why. ASSESSMENT: He is stable. Since he had a rash yesterday, I switched him from Zosyn to meropenem to cover his urinary infections. He remains on vancomycin. His central line was removed and a PICC line was placed today after he received a couple doses of intravenous vancomycin. There was nearly 24 hours between the time that the Holley catheter was removed and the PICC line was placed. His TPN will be resumed. I will request dietitian assistance with optimizing his nutrition. I will again press upon him the importance of physical therapy and physical activity. I would anticipate transfer back to [place] in the next few days. Job ID: [id number]
[2019-08-18] MEDS: Atorvastatin Calcium 40 MG TAB PO SCH (20:32)
[2019-08-18] MEDS: Enoxaparin Sodium 40 MG/0.4 ML SYRINGE SC SCH (20:35)
[2019-08-18] MEDS: Iron, Sodium Ferric Gluconate 250 MG in Sodium Chloride 0.9% 100 ML IVPB SCH (21:28)
[2019-08-18] MEDS: HYDROcodone/Acetaminophen 7.5/325 mg Tablet PO PRN (22:32)
[2019-08-18] MEDS: [UNRECOGNIZED DRUG - OTHER] IV SCH (22:37)
[2019-08-18] MEDS: SODIUM CHLORIDE IV SCH (22:37)
[2019-08-18] MEDS: SODIUM ACETATE IV SCH (22:37)
[2019-08-18] MEDS: POTASSIUM ACETATE IV SCH (22:37)
[2019-08-19] MEDS: MEROPENEM 1 GM/50 ML 1 GM in Premix Bag 1 BAG IVPB SCH ×3 (05:35→22:19)
[2019-08-19] MEDS: Lisinopril 5 MG TAB PO SCH (08:38)
[2019-08-19] MEDS: Carvedilol 25 MG TAB PO SCH ×2 (08:38→20:51)
[2019-08-19] MEDS: Furosemide 20 MG TAB PO SCH (08:38)
[2019-08-19] MEDS: Vancomycin 1 GM in Premix Bag 1 BAG IVPB SCH ×2 (08:39→20:51)
[2019-08-19] MEDS: HYDROcodone/Acetaminophen 7.5/325 mg Tablet PO PRN ×2 (08:39→17:04)
[2019-08-19] MEDS: Iron, Sodium Ferric Gluconate 250 MG in Sodium Chloride 0.9% 100 ML IVPB SCH (08:39)
[2019-08-19 09:04] LABS: ALT (SGPT) 32 U/L (8-55); AST (SGOT) 44 U/L (5-34); Albumin 2.3 g/dL (3.4-4.8); Alkaline Phosphatase 396 U/L (40-110); Anion Gap 9 mmol/L (10-20); BUN (Urea Nitrogen) 18 mg/dL (8.4-25.7); Bilirubin, Total 0.5 mg/dL (0.2-1.2); Calc. Creatinine Clearance 120 mL/min (70-130); Calcium 7.7 mg/dL (7.8-10.44); Carbon Dioxide 25 mmol/L (23-31); Cardiac Risk 8.6 (Less than 4.5); Chloride 113 mmol/L (98-107); Cholesterol 69 mg/dl (< 200 Desired); Estimated GFR-MDRD Greater than 90; Globulin 3.4 g/dL (2.4-3.5); Glucose 127 mg/dL (83-110); HDL Cholesterol 8 mg/dL (>60 Neg Risk); LDL Cholesterol, Calculated 48 mg/dL; Potassium 3.7 mmol/L (3.5-5.1); Protein, Total 5.7 g/dL (5.8-8.1); Sodium 143 mmol/L (136-145); Triglycerides 67 mg/dL (Less than 150)
[2019-08-19 10:29] LABS: Vancomycin, Trough 40.7 ug/mL
--- NOTE | 2019-08-19 10:42 | PRG ---
DATE OF SERVICE: 08/19/2019 SUBJECTIVE: Mr. Rivera is hospital day #3 after his readmission. He had positive blood cultures and urine cultures. He has been maintained on vancomycin and meropenem. His Holley catheter was removed shortly after he arrived and a PICC line was placed yesterday after a 24-hour interval. He is continuing to receive TPN, which has been modified slightly since his arrival. Today, he has no complaints. He denies pain. He had a bowel movement yesterday. He is voiding well. I examined his wound yesterday and this has made dramatic progress and is improved and there is no evidence of any enteric leak at all. I am told that he had refused physical therapy and occupational therapy yesterday. I was also told that he continues to request his [place] on a regular, almost scheduled basis. I decreased his dose upon arrival from 10 mg every 6 hours down to 7.5 mg every 6 hours. OBJECTIVE: VITAL SIGNS: On examination, he is afebrile. Pulse is 95, blood pressure 130/78. LUNGS: Clear to auscultation. CARDIAC: Regular rate and rhythm. ABDOMEN: Entirely benign with normoactive bowel sounds. Wound VAC is intact over his midline wound. LABORATORY DATA: Chemistry panel was checked today. His electrolytes are improved somewhat from yesterday. His chloride is a little bit high at 113. His lipid profile is normal. ASSESSMENT: He appears to be stable. He is currently on meropenem to treat his urine infection. Since he was not catheterized at the time of his infection, I would probably give him a 7-day course of the meropenem before discontinuing this. He is on vancomycin for his Staphylococcal bacteremia. I believe his bacteremia is related to his Holley catheter. I would probably continue his vancomycin for 5 days after his catheter was removed (therefore until the ). I emphasized to the patient the importance of decreasing narcotic use and increase in activity. His TPN has been modified per dietitian recommendation to increase his protein. I suspect that he will be stable for transfer back to the [facility] by tomorrow. Since there is no enteric leak at all, I will allow him to start having sips of clear liquids. Job ID: [id number]
--- NOTE | 2019-08-19 19:58 | PQF ---
CLINICAL DOCUMENTATION IMPROVEMENT CLARIFICATION FORM: ICD-10 Updated PLEASE DO AN ADDENDUM TO THE PROGRESS NOTE WITH ANY DOCUMENTATION UPDATES OR ADDITIONS AND CARRY THROUGH TO DC SUMMARY. THANK YOU. Date: 08/19/2019 ATTN: Dr. Ahmadi Please exercise your independent, professional judgment in responding to the clarification form. Clinical indicators are provided on the bottom of this form for your review Please check appropriate box(s): [ x ] Protein Calorie Malnutrition: [ ] Mild [ x ] Moderate [ ] Severe [ ] Other Malnutrition (please specify) [ ] Other diagnosis [ ] Unable to determine In addition, please specify: Present on Admission (POA): [ x] Yes [ ] No [ ] Unable to determine CLINICAL INDICATORS - SIGNS / SYMPTOMS / LABS / RESULTS AND LOCATION IN MR H&P 08/16: Chief Complaint: Bacteremia, suspected infected Holley catheter, UTI, open wound of abdomen, malnutrition and deconditioning. 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 Commercial Loan Specialist Assess. 08/17: recent bowel resection and LINETTE, enterocutaneous fistula. TREATMENT: H&P 08/16: Radiology to place a PICC line for long-term TPN. Commercial Loan Specialist Assessment 08/17 Moderate Malnutrition (in acute illness) Energy Intake: <75% of estimated energy requirement for > 7 days Weight Loss: 1-2%/1 week; 5%/ 1 month; 7.5%/3 months Other: mild body fat loss; mild muscle mass loss; mild fluid accumulation; Severe Malnutrition (in acute illness) Energy Intake: < 50% of estimated energy requirement for > 5 days Weight Loss: >1-2%/1 week; >5%/1 month; >7.5%/3 months Other: moderate body fat loss; moderate muscle mass loss; moderate- severe fluid accumulation; measurably reduced outside sales executive strength Moderate Malnutrition (in chronic illness) Energy Intake: <75% of estimated energy requirement for >1 month Weight Loss: 5%/1 month; 7.5%/3 months; 10%/6 months; 20%/1 year Other: mild body fat loss; mild muscle mass loss; mild fluid accumulation Severe Malnutrition (in chronic illness) Energy Intake: <75% of estimated energy requirement for >1 month Weight Loss: >5%/1 month; >7.5%/3 months; >10%/6 months; >20%/1 year Other: severe body fat loss; severe muscle mass loss; severe fluid accumulation; measurably reduced outside sales executive strength Thank you, Pina (This form is maintained as a part of the permanent medical record) 2015 [employer], [employer]. All Rights Reserved Pina Balderas RN, BSN [email or web address]
[2019-08-19] MEDS: Atorvastatin Calcium 40 MG TAB PO SCH (20:51)
[2019-08-19] MEDS: diphenhydrAMINE 25 MG CAP PO PRN (20:51)
[2019-08-19] MEDS: Enoxaparin Sodium 40 MG/0.4 ML SYRINGE SC SCH (20:51)
[2019-08-19] MEDS: SODIUM ACETATE IV SCH ×2 (22:19→22:28)
[2019-08-19] MEDS: [UNRECOGNIZED DRUG - OTHER] IV SCH (22:19)
[2019-08-19] MEDS: SODIUM CHLORIDE IV SCH ×2 (22:19→22:28)
[2019-08-19] MEDS: POTASSIUM ACETATE IV SCH ×2 (22:19→22:28)
[2019-08-19] MEDS: [UNRECOGNIZED DRUG - OTHER] IV SCH (22:28)
[2019-08-20] MEDS ORDERED: Furosemide 20 MG/2 ML VIAL SLOW IVP SCH (05:30)
[2019-08-20] MEDS: MEROPENEM 1 GM/50 ML 1 GM in Premix Bag 1 BAG IVPB SCH ×3 (05:42→21:44)
[2019-08-20 05:51] LABS: #Basophils 0.1 thou/uL (0.0-0.2); #Monocytes 0.6 thou/uL (0.11-0.59); #Neutrophils 6.7 thou/uL (1.40-6.50); %Basophils 1.4 % (0.0-1.0); %Eosinophils 10.6 % (0.0-10.0); Hemoglobin 8.7 g/dL (14.0-18.0); Mean Corpuscular HGB CONC 32.8 g/dL (32.0-36.0); Mean Corpuscular Hemoglobin 29.4 pg (27.0-31.0); Mean Corpuscular Volume 89.6 fL (78.0-98.0); Mean Platelet Volume 8.4 fL (7.4-10.4); Platelet Count 211 thou/uL (130-400); RBC Distribution Width 19.8 % (11.5-14.5); Red Blood Cell (RBC) Count 2.95 mill/uL (4.70-6.10); White Blood Cell (WBC) Count 9.4 thou/uL (4.8-10.8)
[2019-08-20 06:28] LABS: Anion Gap 8 mmol/L (10-20); BUN (Urea Nitrogen) 21 mg/dL (8.4-25.7); Calc. Creatinine Clearance 136 mL/min (70-130); Calcium 7.8 mg/dL (7.8-10.44); Carbon Dioxide 27 mmol/L (23-31); Chloride 112 mmol/L (98-107); Estimated GFR-MDRD Greater than 90; Glucose 88 mg/dL (83-110); Potassium 3.6 mmol/L (3.5-5.1); Sodium 143 mmol/L (136-145)
[2019-08-20] MEDS: Furosemide 20 MG TAB PO SCH (08:49)
[2019-08-20] MEDS: Vancomycin 1 GM in Premix Bag 1 BAG IVPB SCH ×2 (08:50→20:40)
[2019-08-20] MEDS: Acetaminophen 325 MG TAB PO PRN ×2 (08:50→18:39)
[2019-08-20] MEDS: Lisinopril 5 MG TAB PO SCH (08:50)
[2019-08-20] MEDS: Carvedilol 25 MG TAB PO SCH ×2 (08:50→20:40)
[2019-08-20] MEDS: HYDROcodone/Acetaminophen 7.5/325 mg Tablet PO PRN ×2 (15:10→21:43)
[2019-08-20] MEDS: Enoxaparin Sodium 40 MG/0.4 ML SYRINGE SC SCH (20:40)
[2019-08-20] MEDS: Atorvastatin Calcium 40 MG TAB PO SCH (20:40)
[2019-08-20] MEDS: [UNRECOGNIZED DRUG - OTHER] IV SCH (21:46)
[2019-08-20] MEDS: SODIUM ACETATE IV SCH (21:46)
[2019-08-20] MEDS: SODIUM CHLORIDE IV SCH (21:46)
[2019-08-20] MEDS: POTASSIUM ACETATE IV SCH (21:46)
[2019-08-21] MEDS: MEROPENEM 1 GM/50 ML 1 GM in Premix Bag 1 BAG IVPB SCH ×3 (05:16→22:19)
[2019-08-21] MEDS ORDERED: Furosemide 20 MG/2 ML VIAL SLOW IVP SCH (08:15)
--- NOTE | 2019-08-21 09:43 | RAD ---
EXAM: Single view of the chest HISTORY: Hypoxia COMPARISON: 08/18/2019 FINDINGS: Single view of the chest shows a normal sized cardiomediastinal silhouette. There is a PIC C line with its tip in superior vena cava. There is stable elevation the right hemidiaphragm. There is a [id number] right pleural effusion with adjacent atelectasis versus infiltrate. A ca lcified granuloma projects over the right lung. The bones are unremarkable. IMPRESSION: Stable exam
[2019-08-21] MEDS: Lisinopril 5 MG TAB PO SCH (09:47)
[2019-08-21] MEDS: Carvedilol 25 MG TAB PO SCH ×2 (09:48→21:23)
[2019-08-21] MEDS: Furosemide 20 MG TAB PO SCH (09:48)
[2019-08-21 09:52] LABS: Vancomycin, Trough 18.7 ug/mL
[2019-08-21 10:10] LABS: ALT (SGPT) 27 U/L (8-55); AST (SGOT) 43 U/L (5-34); Albumin 2.1 g/dL (3.4-4.8); Alkaline Phosphatase 357 U/L (40-110); Anion Gap 11 mmol/L (10-20); BUN (Urea Nitrogen) 21 mg/dL (8.4-25.7); Bilirubin, Total 0.4 mg/dL (0.2-1.2); Calc. Creatinine Clearance 143 mL/min (70-130); Calcium 7.9 mg/dL (7.8-10.44); Carbon Dioxide 24 mmol/L (23-31); Chloride 110 mmol/L (98-107); Estimated GFR-MDRD Greater than 90; Globulin 3.5 g/dL (2.4-3.5); Glucose 109 mg/dL (83-110); Potassium 3.6 mmol/L (3.5-5.1); Protein, Total 5.6 g/dL (5.8-8.1); Sodium 141 mmol/L (136-145)
[2019-08-21] MEDS: HYDROcodone/Acetaminophen 7.5/325 mg Tablet PO PRN ×2 (10:45→18:34)
[2019-08-21] MEDS: Vancomycin 1 GM in Premix Bag 1 BAG IVPB SCH ×2 (10:47→21:23)
[2019-08-21 12:26] LABS: #Eosinphils 1.2 thou/uL (0.0-0.7); #Lymphocytes 1.2 thou/uL (1.20-3.40); #Monocytes 0.6 thou/uL (0.11-0.59); #Neutrophils 5.9 thou/uL (1.40-6.50); %Basophils 0.4 % (0.0-1.0); %Eosinophils 13.6 % (0.0-10.0); %Lymphocytes 13.8 % (21.0-51.0); %Monocytes 6.2 % (0.0-10.0); Hemoglobin 9.9 g/dL (14.0-18.0); Mean Corpuscular HGB CONC 31.5 g/dL (32.0-36.0); Mean Corpuscular Hemoglobin 28.6 pg (27.0-31.0); Mean Corpuscular Volume 90.7 fL (78.0-98.0); Mean Platelet Volume 8.8 fL (7.4-10.4); Platelet Count 217 thou/uL (130-400); RBC Distribution Width 20.1 % (11.5-14.5); Red Blood Cell (RBC) Count 3.47 mill/uL (4.70-6.10); White Blood Cell (WBC) Count 8.9 thou/uL (4.8-10.8)
--- NOTE | 2019-08-21 13:06 | PRG ---
DATE OF SERVICE: 08/21/2019 SUBJECTIVE: Mr. Rivera remains in his room on the surgical floor. Today, he is examined well out of bed and sitting in his chair. He still has dramatic inability to walk any distance. Some of this is because of his refusal to walk and some of it is clearly because of progressive weakness and deconditioning. He denies any discomfort other than his back, which is chronic. I had hoped that he would be transferred back to [facility] yesterday, but this was delayed secondary to insurance approval. Overnight, he apparently had episodes of low oxygen saturation in the 80s, requiring supplemental oxygen. Interestingly, he is currently saturating 98% on room air. Chest x-ray from this morning did reveal some right pleural effusion with some atelectasis at the right base. Labs from today show stable electrolytes. Interestingly, his albumin is decreasing at 2.1. I am not certain why it is going down in spite of full strength TPN for a couple of weeks now. His CBC is still pending. His physical exam is otherwise unchanged. It is noted that he has very weak inspiratory effort on incentive spirometry and usually inspires between 500 to 750 mL. ASSESSMENT: The patient is overall doing well. His wound VAC was discontinued today as his wound is healing so nicely. It was felt that he could do well with Promogran and dressing changes instead of the wound VAC. He has continued to tolerate clear liquid diet. He is tolerating TPN. He is still receiving both meropenem and vancomycin, but should only need these for a couple more days. Continue current care for now. I will add Ensure Clear as he is tolerating clear liquids to increase his nutritional status. Job ID: [id number]
[2019-08-21] MEDS: Enoxaparin Sodium 40 MG/0.4 ML SYRINGE SC SCH (21:23)
[2019-08-21] MEDS: Atorvastatin Calcium 40 MG TAB PO SCH (21:23)
[2019-08-21] MEDS: POTASSIUM ACETATE IV SCH (22:19)
[2019-08-21] MEDS: [UNRECOGNIZED DRUG - OTHER] IV SCH (22:19)
[2019-08-21] MEDS: SODIUM CHLORIDE IV SCH (22:19)
[2019-08-21] MEDS: SODIUM ACETATE IV SCH (22:19)
[2019-08-22] MEDS: diphenhydrAMINE 25 MG CAP PO PRN (03:15)
[2019-08-22] MEDS: MEROPENEM 1 GM/50 ML 1 GM in Premix Bag 1 BAG IVPB SCH (05:09)
[2019-08-22] MEDS: Lisinopril 5 MG TAB PO SCH (08:40)
[2019-08-22] MEDS: Furosemide 20 MG TAB PO SCH (08:40)
[2019-08-22] MEDS: Saccharomyces boulardii 250 MG CAP PO SCH (08:40)
[2019-08-22] MEDS: Carvedilol 25 MG TAB PO SCH ×2 (08:40→21:13)
[2019-08-22] MEDS: Iron, Sodium Ferric Gluconate 250 MG in Sodium Chloride 0.9% 100 ML IVPB SCH ×2 (08:43→21:14)
--- NOTE | 2019-08-22 09:31 | PRG ---
DATE OF SERVICE: 08/22/2019 SUBJECTIVE: Mr. Rivera remains in the hospital on the surgical floor. He is hospital day #6 after his readmission. He was stable for discharge a couple of days ago but was not allowed to be transferred secondary to insurance authorization. He has no complaints. He is alert and resting comfortably in bed. He spent some time out of bed in a chair yesterday. I still do not think he is able to ambulate outside of his room secondary to weakness and deconditioning. Yesterday, his wound was adequately healed. We decided to discontinue his wound VAC and will use external wound care. He tells me that he is tolerating his liquid diet without vomiting and is having occasional bowel movements. Other than his back pain, he denies discomfort. OBJECTIVE: On examination today, VITAL SIGNS: He is afebrile, pulse is 80, and blood pressure 144/78. LUNGS: Clear to auscultation. CARDIAC: Regular rate and rhythm. ABDOMEN: Soft, nontender, nondistended with dressing intact on his midline abdominal wound. LABORATORY DATA: I obtained an iron level today which is 36. This is still low (lower limit of normal is 65), but it is up from 22 when I obtained one 4 days ago. His prealbumin level almost unexplainably is 11. It had gone up to 17 before he was discharged last time. I am not certain why his prealbumin level is dropping in spite of TPN. ASSESSMENT: The patient who is overall doing well. His wound is healing appropriately. Enterocutaneous fistula resolved. He is tolerating his clear liquid diet and I started him on Ensure Clear to obtain some increased oral nutrition as well. He has had a full course of IV antibiotics between what he received in [place] and here and I have therefore discontinued his meropenem and his vancomycin today. He is again strongly encouraged to participate in physical therapy and rehabilitation. I would anticipate transfer back to a swing bed in [place] early this next week. Job ID: [id number]
[2019-08-22] MEDS: HYDROcodone/Acetaminophen 7.5/325 mg Tablet PO PRN ×2 (10:15→21:13)
[2019-08-22] MEDS: Acetaminophen 325 MG TAB PO PRN (17:44)
[2019-08-22] MEDS: Atorvastatin Calcium 40 MG TAB PO SCH (21:12)
[2019-08-22] MEDS: Enoxaparin Sodium 40 MG/0.4 ML SYRINGE SC SCH (21:14)
[2019-08-22] MEDS: [UNRECOGNIZED DRUG - OTHER] IV SCH (23:03)
[2019-08-22] MEDS: SODIUM CHLORIDE IV SCH (23:03)
[2019-08-22] MEDS: SODIUM ACETATE IV SCH (23:03)
[2019-08-22] MEDS: POTASSIUM ACETATE IV SCH (23:03)
[2019-08-23] MEDS: Acetaminophen 325 MG TAB PO PRN (05:21)
[2019-08-23 06:20] LABS: #Eosinphils 1.3 thou/uL (0.0-0.7); #Lymphocytes 1.5 thou/uL (1.20-3.40); #Monocytes 0.7 thou/uL (0.11-0.59); #Neutrophils 6.5 thou/uL (1.40-6.50); %Basophils 0.3 % (0.0-1.0); %Eosinophils 12.9 % (0.0-10.0); %Lymphocytes 15.1 % (21.0-51.0); %Monocytes 6.7 % (0.0-10.0); Hemoglobin 8.4 g/dL (14.0-18.0); Mean Corpuscular HGB CONC 31.9 g/dL (32.0-36.0); Mean Corpuscular Volume 90.7 fL (78.0-98.0); Platelet Count 188 thou/uL (130-400); RBC Distribution Width 21.1 % (11.5-14.5); Red Blood Cell (RBC) Count 2.89 mill/uL (4.70-6.10)
[2019-08-23 06:31] LABS: Phosphorus 3.3 mg/dL (2.3-4.7)
[2019-08-23 06:36] LABS: ALT (SGPT) 35 U/L (8-55); AST (SGOT) 51 U/L (5-34); Albumin 2.2 g/dL (3.4-4.8); Alkaline Phosphatase 348 U/L (40-110); Anion Gap 11 mmol/L (10-20); BUN (Urea Nitrogen) 22 mg/dL (8.4-25.7); Bilirubin, Total 0.4 mg/dL (0.2-1.2); Calc. Creatinine Clearance 138 mL/min (70-130); Calcium 8.1 mg/dL (7.8-10.44); Carbon Dioxide 26 mmol/L (23-31); Chloride 108 mmol/L (98-107); Estimated GFR-MDRD Greater than 90; Globulin 3.9 g/dL (2.4-3.5); Glucose 87 mg/dL (83-110); Magnesium 1.9 mg/dL (1.6-2.6); Potassium 4.1 mmol/L (3.5-5.1); Protein, Total 6.1 g/dL (5.8-8.1); Sodium 141 mmol/L (136-145)
[2019-08-23] MEDS: Saccharomyces boulardii 250 MG CAP PO SCH (07:46)
[2019-08-23] MEDS: Furosemide 20 MG TAB PO SCH (07:46)
[2019-08-23] MEDS: Lisinopril 5 MG TAB PO SCH (07:46)
[2019-08-23] MEDS: Carvedilol 25 MG TAB PO SCH ×2 (07:50→20:32)
[2019-08-23] MEDS: HYDROcodone/Acetaminophen 7.5/325 mg Tablet PO PRN ×2 (11:11→20:31)
--- NOTE | 2019-08-23 16:21 | PRG ---
DATE OF SERVICE: 08/23/2019 SUBJECTIVE: Mr. Rivera remains in the hospital on the surgical floor. He is hospital day #7 after his readmission. He was cleared for discharge at least 3 days ago, but transfer was not allowed secondary to insurance issues. He is sitting up in the bedside chair. He has complaints of sinus related issues, but denies abdominal problems. He still has minimal ambulation. OBJECTIVE: VITAL SIGNS: On examination, he is afebrile, pulse 78, and blood pressure 154/80. LUNGS: Clear to auscultation. CARDIAC: Regular rate and rhythm. ABDOMEN: Soft, nontender, and nondistended with normoactive bowel sounds. Dressing is intact on the midline. LABORATORY DATA: CBC from today reveals white blood cell count of 10, with essentially normal differential. His hemoglobin is 8.4 with a hematocrit of 26.3. Platelet count is 188. Chemistry profile reveals normal electrolytes. His chloride is dropping appropriately down to 108. His glucose is well controlled. Magnesium and phosphorus are normal. Albumin is unfortunately very low at 2.2. Yesterday, his pre-albumin was found to be 11. His iron yesterday although elevated at 36 yesterday, still quite low. ASSESSMENT: The patient is overall doing well. His antibiotics have been discontinued. I have encouraged him to drink Ensure Clear to get oral protein in addition to his TPN. I have spoken to dietary who has no further recommendations to optimize his nutritional status in regard to his TPN. Appears to be stable for transfer back to [facility] in [place]. I will speak with Hematology regarding possible further iron transfusions. He has had iron infusions twice over the past week. Job ID: [id number]
[2019-08-23] MEDS: Atorvastatin Calcium 40 MG TAB PO SCH (20:31)
[2019-08-23] MEDS: Enoxaparin Sodium 40 MG/0.4 ML SYRINGE SC SCH (20:31)
[2019-08-23] MEDS ORDERED: Furosemide 20 MG/2 ML VIAL SLOW IVP SCH (21:00)
[2019-08-23] MEDS: SODIUM CHLORIDE IV SCH (22:44)
[2019-08-23] MEDS: POTASSIUM ACETATE IV SCH (22:44)
[2019-08-23] MEDS: [UNRECOGNIZED DRUG - OTHER] IV SCH (22:44)
[2019-08-23] MEDS: SODIUM ACETATE IV SCH (22:44)
[2019-08-24 04:01] VITALS: TEMP 98.5
[2019-08-24] MEDS: Saccharomyces boulardii 250 MG CAP PO SCH (08:38)
[2019-08-24] MEDS: Lisinopril 5 MG TAB PO SCH (08:38)
[2019-08-24] MEDS: Carvedilol 25 MG TAB PO SCH (08:38)
[2019-08-24] MEDS: Furosemide 20 MG TAB PO SCH (08:39)
[2019-08-24 08:42] VITALS: BP 162/90
== END 2019-08-24 10:50 | disposition swing bed (61) | DRG 315 ==
LOC: SURG B 14:16
PROVIDERS: ADMIT Specialist; ATTEND Specialist
PROC: 02HV33Z Insertion of Infusion Device into Superior Vena Cava, Percutaneous Approach (ICD-10-PCS; principal; 2019-08-17)
PROC: B548ZZA Ultrasonography of Superior Vena Cava, Guidance (ICD-10-PCS; 2019-08-17)
PROC: 05PYX3Z Removal of Infusion Device from Upper Vein, External Approach (ICD-10-PCS; 2019-08-17)
DX: T80.211A Bloodstream infection due to central venous catheter, initial encounter (principal); R78.81 Bacteremia; E44.0 Moderate protein-calorie malnutrition; I10 Essential (primary) hypertension; M54.5 Low back pain; G89.29 Other chronic pain; J30.9 Allergic rhinitis, unspecified; M19.90 Unspecified osteoarthritis, unspecified site; G62.9 Polyneuropathy, unspecified; F41.9 Anxiety disorder, unspecified; I25.10 Atherosclerotic heart disease of native coronary artery without angina pectoris; Y83.8 Other surgical procedures as the cause of abnormal reaction of the patient, or of later complication, without mention of misadventure at the time of the procedure; Z96.659 Presence of unspecified artificial knee joint; Z96.649 Presence of unspecified artificial hip joint; Z95.5 Presence of coronary angioplasty implant and graft; Z79.899 Other long term (current) drug therapy; Z68.26 Body mass index [BMI] 26.0-26.9, adult
CPT/HCPCS: 36415; 36416; 36569; 71045; 80048; 80053; 80061; 80202; 82607; 82728; 82746; 83540; 83735; 84100; 84134; 85025; 86140; 94640; C1751; J1644; J1650; J1815; J1940; J2185; J2916; J3370; J3475; J3480; J3490; J7620; Q0163

== ENCOUNTER 2019-09-12 09:42 | Outpatient (CLI) | payer MEDICARE ==
--- NOTE | 2019-09-12 10:22 | ULT ---
ULTRASOUND DOPPLER DUPLEX VENOUS LEFT UPPER EXTREMITY: DATE: 09/12/2019 HISTORY: 69-year-old male with left upper extremity swelling. TECHNIQUE: Grayscale, color-flow, and spectral analysis, of major veins of left lower extremity. FINDINGS: There is demonstration of blood flow with normal compressibility, of the left internal jugular, axill debora, brachial, cephalic, basilic, ulnar, and radial, veins. There is demonstration of blood flow in the left subclavian vein. There is somewhat severe soft tissue edema throughout the forearm up to the antecubital fossa. IMPRESSION: 1. No deep venous thrombosis of left upper extremity. 2. Somewhat severe soft tissue edema in the left forearm and antecubital fossa.
== END 2019-09-12 09:43 | disposition home or self-care (01) ==
LOC: ULT 09:42
PROVIDERS: ATTEND Internal Medicine
DX: M79.89 Other specified soft tissue disorders (principal)

== ENCOUNTER 2019-10-29 05:23 | Emergency (ER) | payer MEDICARE ==
[2019-10-29] MEDS ORDERED: HYDROcodone/Acetaminophen 5/325 mg Tablet ONE (06:02)
--- NOTE | 2019-10-29 08:26 | RAD ---
KUB: DATE: 10/29/2019 INDICATION: History of emergency exam. COMPARISON: Prior small bowel evaluation dated 09/02/2019. FINDINGS: There is some intraluminal contrast seen within the left lower quadrant of the abdomen, adjacent to a jejunostomy tube. The tube is intraluminal. There is no extravasation of contrast. Bowel gas pattern is nonspecific. No acute osseous abnormality is evident. There is instrumentation involving the left hip that is similar to the comparison exam. IMPRESSION: Intraluminal contrast instilled into the jejunum via a J-tube. There is no evidence of extraluminal e xtravasation. POS:
[2019-10-29] MEDS ORDERED: GASTROGRAFIN 30 ML BOT ONE (11:08)
== END 2019-10-29 08:40 | disposition home or self-care (01) ==
LOC: ERS 05:23
DX: K94.23 Gastrostomy malfunction (principal); I25.2 Old myocardial infarction; I10 Essential (primary) hypertension; I25.10 Atherosclerotic heart disease of native coronary artery without angina pectoris; F41.9 Anxiety disorder, unspecified; F31.9 Bipolar disorder, unspecified; Z79.51 Long term (current) use of inhaled steroids; Z79.899 Other long term (current) drug therapy
CPT/HCPCS: 74018

== ENCOUNTER 2019-11-17 20:30 | Emergency (ER) | payer MEDICARE, OTHER | END 2019-11-17 21:56 | disposition home or self-care (01) | LOC: ERS 20:30 | DX: K94.23 Gastrostomy malfunction (principal) | CPT/HCPCS: 99282 ==

== ENCOUNTER 2019-11-21 11:30 | Emergency (ER) | payer MEDICARE, OTHER | END 2019-11-21 12:44 | disposition home or self-care (01) | LOC: ERS 11:30 | DX: K94.23 Gastrostomy malfunction (principal); I25.2 Old myocardial infarction; I10 Essential (primary) hypertension; E11.9 Type 2 diabetes mellitus without complications; E78.5 Hyperlipidemia, unspecified; F41.9 Anxiety disorder, unspecified | CPT/HCPCS: 99282 ==

== ENCOUNTER 2019-11-22 11:14 | Outpatient (CLI) | payer MEDICARE, OTHER ==
[2019-11-23 13:24] LABS: SARS-CoV-2 MS2 Positive; SARS-CoV-2 N Gene Negative; SARS-CoV-2 S Gene Negative; SARS-CoV-2 by NAA Not Detected (NotDetected); SARS-CoV-2 orf1ab Negative
== END 2019-11-22 11:15 | disposition home or self-care (01) ==
LOC: LABSCS 11:14
PROVIDERS: ATTEND Specialist
DX: K31.1 Adult hypertrophic pyloric stenosis (principal); Z20.828 Contact with and (suspected) exposure to other viral communicable diseases
CPT/HCPCS: 87635; U0003

== ENCOUNTER 2019-11-25 08:30 | Outpatient (CLI) | payer MEDICARE, OTHER ==
--- NOTE | 2019-11-25 11:23 | RAD ---
LIMITED SMALL BOWEL STUDY/UPPER GI: HISTORY: Gastric outlet obstruction. FINDINGS: Initial football scout radiograph demonstrates a percutaneous feeding tube in the left upper quadrant. Through this feeding tube, the patient was administered Gastrografin which opacifies multiple normal caliber loops of small bowel. There is a short segment of small bowel dilatation, likely at the level of anastomosis. Contrast does pass beyond this and opacify the colon. Note, there appears to be reflux of administered contrast from the duodenum into the gastric antrum. Contrast does opacify the gastric cardia. IMPRESSION: 1. No evidence of a small bowel obstruction. Given the concern for possible gastric outlet obstructio n, upper GI will be performed to better evaluate the stomach as well as the duodenum. 2. There does appear to be reflux of contrast into the gastric cardia. Results of the study discussed with Dr. Ahmadi 11/25/2019 at 11:21 AM. Code CR Transcribed Date/Time: 11/25/2019 11:37 AM
== END 2019-11-25 08:31 | disposition home or self-care (01) ==
LOC: RAD 08:30
PROVIDERS: ATTEND Specialist
DX: K31.1 Adult hypertrophic pyloric stenosis (principal)
CPT/HCPCS: 74240; 74246

== ENCOUNTER 2019-11-26 08:44 | Outpatient (CLI) | payer MEDICARE ==
--- NOTE | 2019-11-26 11:05 | RAD ---
Exam: Single contrast upper GI HISTORY: Evaluate for gastric outlet obstruction Exposure: 1.2 minutes. 44.2 Gy per centimeter square FINDINGS: Supine field support engineer radiograph: Residual oral contrast opacifies the colon with extensive diverticula. Patient was administered Gastrografin which passes without difficulty from the esophagus into the sto mach. There is prompt passage of Gastrografin from the stomach into the duodenum and small bowel. A small duodenal diverticulum is noted. Postprocedure images demonstrate contrast opacified stomach and small bowel loops. IMPRESSION: 1. No evidence of gastric outlet obstruction.
[2019-11-26] MEDS ORDERED: MD-Gastroview 120 ML BOT ONE (11:51)
== END 2019-11-26 08:45 | disposition home or self-care (01) ==
LOC: RAD 08:44
PROVIDERS: ATTEND Specialist
DX: K31.1 Adult hypertrophic pyloric stenosis (principal)
CPT/HCPCS: 74240; Q9963

== ENCOUNTER 2019-12-10 19:27 | Emergency (ER) | payer MEDICARE | END 2019-12-10 20:17 | disposition home or self-care (01) | LOC: ERS 19:27 | DX: K94.23 Gastrostomy malfunction (principal); I25.2 Old myocardial infarction; E11.9 Type 2 diabetes mellitus without complications; E78.5 Hyperlipidemia, unspecified; I10 Essential (primary) hypertension; F41.9 Anxiety disorder, unspecified | CPT/HCPCS: 99282 ==

== ENCOUNTER 2020-01-04 18:26 | Emergency (ER) | payer MEDICARE ==
[~2020-01-04 18:26] MED LIST changes: +GASTROGRAFIN 30 ML BOT ONE; -Heparin 1,000 UNITS/ML VIAL ONE; -Iopamidol-370 76% 500 ML 1 ML ONE
--- NOTE | 2020-01-04 19:18 | RAD ---
EXAM: XR Abdomen 1 View/KUB PROVIDED CLINICAL HISTORY: Balloon on feeding tube deflated and tube slipped out. COMPARISON: 10/29/2019 FINDINGS: Radiopaque tube overlies the left mid abdomen. Bowel gas pattern is nonspecific. Degenerative change seen in the spine. Postoperative changes of the pelvis are again noted. IMPRESSION: 1. Radiopaque tubing overlies left mid abdomen. 2. Visualized bowel gas pattern is nonspecific.
--- NOTE | 2020-01-04 19:58 | RAD ---
EXAM: XR Abdomen 1 View/KUB PROVIDED CLINICAL HISTORY: Balloon on feeding tube deflated and tube slipped out. COMPARISON: 01/04/2020 at 1903 hours FINDINGS: Contrast has been injected through the left-sided jejunostomy tube, and contrast is seen within loops of small bowel lateral left abdomen. No extravasation of contrast is seen outside the confines of loops of small bowel in this region. No other interval change. IMPRESSION: Contrast injected through jejunostomy tube with contrast seen in loops of small bowel lateral left ab domen.
== END 2020-01-04 20:43 | disposition home or self-care (01) ==
LOC: ERS 18:26
DX: Z53.1 Procedure and treatment not carried out because of patient's decision for reasons of belief and group pressure (principal); E78.5 Hyperlipidemia, unspecified; I25.2 Old myocardial infarction; I10 Essential (primary) hypertension; F41.9 Anxiety disorder, unspecified; Z79.899 Other long term (current) drug therapy; Z79.82 Long term (current) use of aspirin
CPT/HCPCS: 43762; 74018; Q9963

== ENCOUNTER 2020-10-16 07:48 | Day surgery (SDC) | payer MEDICARE ==
[2020-10-13 10:06] VITALS: BMI 28.1
[2020-10-16] MEDS ORDERED: Heparin 5,000 UNITS/ML VIAL ONE (08:21)
[2020-10-16 08:32] LABS: #Eosinphils 0.2 thou/uL (0.0-0.7); #Lymphocytes 1.7 thou/uL (1.20-3.40); #Monocytes 0.3 thou/uL (0.11-0.59); %Basophils 0.4 % (0.0-1.0); %Eosinophils 3.8 % (0.0-10.0); %Lymphocytes 27.5 % (21.0-51.0); %Neutrophils 63.3 % (42.0-75.0); Hemoglobin 12.7 g/dL (14.0-18.0); Mean Corpuscular HGB CONC 33.7 g/dL (32.0-36.0); Mean Corpuscular Hemoglobin 34.5 pg (27.0-31.0); Mean Platelet Volume 6.8 fL (7.4-10.4); Platelet Count 221 thou/uL (130-400); RBC Distribution Width 12.7 % (11.5-14.5); Red Blood Cell (RBC) Count 3.67 mill/uL (4.70-6.10); White Blood Cell (WBC) Count 6.3 thou/uL (4.8-10.8)
[2020-10-16 08:49] LABS: Anion Gap 12 mmol/L (10-20); BUN (Urea Nitrogen) 14 mg/dL (8.4-25.7); Calc. Creatinine Clearance 90 mL/min (70-130); Calcium 9.2 mg/dL (7.8-10.44); Carbon Dioxide 27 mmol/L (23-31); Chloride 104 mmol/L (98-107); Glucose 95 mg/dL (83-110); Potassium 3.7 mmol/L (3.5-5.1); Sodium 139 mmol/L (136-145)
[2020-10-16] MEDS ORDERED: Lidocaine 1% w/Epinephrine 1:100K 20 ML VIAL ONE (08:50)
[2020-10-16] MEDS ORDERED: Fentanyl 100 MCG/2 ML VIAL ONE (09:19)
[2020-10-16] MEDS ORDERED: Midazolam HCl 2 mg/2 ml Vial ONE (09:27)
[2020-10-16] MEDS ORDERED: Lidocaine 1% PF 5 ML VIAL ONE (09:37)
[2020-10-16] MEDS ORDERED: PROPOFOL 200 MG/20 ML VIAL ONE (09:37)
[2020-10-16] MEDS ORDERED: Ondansetron PF 4 MG/2 ML Vial ONE (09:37)
[2020-10-16] MEDS ORDERED: Dexamethasone 20 MG/5 ML VIAL ONE (09:37)
== END 2020-10-16 12:38 | disposition home or self-care (01) ==
LOC: SDC 07:48
PROVIDERS: ATTEND Plastic Surgery
PROC: 080PXZZ Alteration of Left Upper Eyelid, External Approach (ICD-10-PCS; principal; 2020-10-16)
PROC: 080NXZZ Alteration of Right Upper Eyelid, External Approach (ICD-10-PCS; 2020-10-16)
DX: H02.831 Dermatochalasis of right upper eyelid (principal); H02.834 Dermatochalasis of left upper eyelid; I11.0 Hypertensive heart disease with heart failure; I50.9 Heart failure, unspecified; I25.2 Old myocardial infarction; Z91.011 Allergy to milk products
CPT/HCPCS: 36415; 80048; 85025; J0690; J1100; J1644; J2250; J2405; J2704; J3010

== ENCOUNTER 2022-05-27 11:39 | Emergency (ER) | payer MEDICARE ==
[2022-05-27] MEDS ORDERED: Aspirin Chewable 81 MG TAB ONE (12:24)
[2022-05-27 12:32] LABS: #Eosinphils 0.3 thou/uL (0.0-0.7); #Lymphocytes 1.3 thou/uL (1.20-3.40); #Monocytes 0.5 thou/uL (0.11-0.59); #Neutrophils 4.4 thou/uL (1.40-6.50); %Basophils 0.4 % (0.0-1.0); %Lymphocytes 19.2 % (21.0-51.0); %Monocytes 8.2 % (0.0-10.0); %Neutrophils 67.1 % (42.0-75.0); Hemoglobin 11.9 g/dL (14.0-18.0); Mean Corpuscular HGB CONC 33.2 g/dL (32.0-36.0); Mean Corpuscular Hemoglobin 33.6 pg (27.0-31.0); Mean Platelet Volume 6.7 fL (7.4-10.4); Platelet Count 200 10x3/uL (130-400); RBC Distribution Width 12.1 % (11.5-14.5); Red Blood Cell (RBC) Count 3.54 mill/uL (4.70-6.10); White Blood Cell (WBC) Count 6.5 10x3/uL (4.8-10.8)
[2022-05-27 12:58] LABS: ALT (SGPT) 13 U/L (8-55); AST (SGOT) 16 U/L (5-34); Albumin 3.7 g/dL (3.4-4.8); Alkaline Phosphatase 50 U/L (40-110); Anion Gap 10 mmol/L (10-20); BUN (Urea Nitrogen) 9 mg/dL (8.4-25.7); Bilirubin, Total 0.9 mg/dL (0.2-1.2); Calc. Creatinine Clearance 0 mL/min (70-130); Calcium 8.9 mg/dL (7.8-10.44); Carbon Dioxide 27 mmol/L (23-31); Chloride 99 mmol/L (98-107); Estimated GFR 94; Globulin 2.5 g/dL (2.4-3.5); Glucose 95 mg/dL (83-110); Potassium 4.2 mmol/L (3.5-5.1); Protein, Total 6.2 g/dL (5.8-8.1); Sodium 132 mmol/L (136-145)
[2022-05-27] MEDS ORDERED: Acetaminophen 325 MG TAB PO PRN (14:29)
[2022-05-27] MEDS ORDERED: Ondansetron PF 4 MG/2 ML Vial IVP PRN (14:29)
[2022-05-27 14:40] LABS: Bilirubin Negative (Negative); Blood, Urine Negative (Negative); Clarity Clear (Clear); Glucose, Urine (Dipstick) Normal (Negative); Ketone, Urine Negative (Negative); Leukocyte Negative Leu/uL (Negative); Nitrite Negative (Negative); Protein, Urine (Dipstick) Negative (Neg-Trace); Specific Gravity, Urine 1.013 (1.002-1.036); Urobilinogen 3 mg/dL (Less than 2)
== END 2022-05-27 15:00 | disposition home or self-care (01) ==
LOC: ERS 11:39
DX: R55 Syncope and collapse (principal); I25.10 Atherosclerotic heart disease of native coronary artery without angina pectoris; E78.2 Mixed hyperlipidemia; I10 Essential (primary) hypertension; Z79.82 Long term (current) use of aspirin; Z79.899 Other long term (current) drug therapy
CPT/HCPCS: 36415; 71045; 80053; 81003; 84484; 85025; 93005

== ENCOUNTER 2022-11-13 12:22 | Outpatient (CLI) | payer MEDICARE ==
[2022-11-13 13:37] LABS: #Basophils 0.1 10x3/uL (0.0-0.2); #Eosinphils 0.2 10x3/uL (0.0-0.5); #Monocytes 0.5 10x3/uL (0.0-1.1); #Neutrophils 4.9 10x3/uL (1.5-8.4); %Basophils 0.7 % (0.0-2.0); %Eosinophils 3.2 % (0.0-6.0); %Lymphocytes 22.2 % (18.0-47.0); %Monocytes 6.2 % (0.0-10.0); %Neutrophils 67.3 % (40.0-75.0); Hematocrit 43.2 % (38.8-50.0); Hemoglobin 14.5 g/dL (13.5-17.5); Mean Corpuscular HGB CONC 33.6 g/dL (32.0-36.0); Mean Corpuscular Hemoglobin 32.9 pg (27.0-33.0); Mean Platelet Volume 9.6 fl (7.4-10.4); Platelet Count 260 10x3/uL (150-450); RBC Distribution Width 14.6 % (11.5-14.5); Red Blood Cell (RBC) Count 4.41 10x6/uL (4.32-5.72); White Blood Cell (WBC) Count 7.2 10x3/uL (3.5-10.5)
[2022-11-13 14:05] LABS: Anion Gap 14 mmol/L (10-20); BUN (Urea Nitrogen) 9 mg/dL (8.4-25.7); Calc. Creatinine Clearance 0 mL/min (70-130); Calcium 8.9 mg/dL (7.8-10.44); Carbon Dioxide 29 mmol/L (23-31); Chloride 100 mmol/L (98-107); Estimated GFR 79; Glucose 143 mg/dL (83-110); Potassium 4.2 mmol/L (3.5-5.1); Sodium 139 mmol/L (136-145)
== END 2022-11-13 12:23 | disposition home or self-care (01) ==
LOC: LABBT 12:22
PROVIDERS: ATTEND Specialist
DX: Z01.818 Encounter for other preprocedural examination (principal); K43.2 Incisional hernia without obstruction or gangrene
CPT/HCPCS: 71046; 80048; 85025; 93005; 93010

== ENCOUNTER → 2022-11-18 | Day surgery (SDC) | payer MEDICARE ==
[~2022-11-18] MED LIST changes: -GASTROGRAFIN 30 ML BOT ONE; +PROPOFOL 200 MG/20 ML VIAL ONE
[2022-11-18 07:53] LABS: INR-International Normal Ratio 1.7; PTT 38.2 sec (22.9-36.1); Prothrombin Time 20.9 sec (12.0-14.7)
== END ==
LOC: SDC 06:28
PROVIDERS: ATTEND Internal Medicine Cardiovascular Disease
PROC: B246ZZ4 Ultrasonography of Right and Left Heart, Transesophageal (ICD-10-PCS; principal; 2022-11-18)
DX: I48.0 Paroxysmal atrial fibrillation (principal); M19.90 Unspecified osteoarthritis, unspecified site; R94.31 Abnormal electrocardiogram [ECG] [EKG]; D64.9 Anemia, unspecified; D50.0 Iron deficiency anemia secondary to blood loss (chronic); K25.7 Chronic gastric ulcer without hemorrhage or perforation; I42.0 Dilated cardiomyopathy; I25.10 Atherosclerotic heart disease of native coronary artery without angina pectoris; I10 Essential (primary) hypertension; R60.0 Localized edema; F41.9 Anxiety disorder, unspecified; G62.9 Polyneuropathy, unspecified; Z98.890 Other specified postprocedural states; Z90.49 Acquired absence of other specified parts of digestive tract; Z79.899 Other long term (current) drug therapy
CPT/HCPCS: 85610; 85730; 92960; 93005; 93010; 93312; J2704

== ENCOUNTER 2023-01-30 07:29 | Outpatient (CLI) | payer MEDICARE | END 2023-01-30 07:30 | disposition home or self-care (01) | LOC: LABBT 07:29 | PROVIDERS: ATTEND Surgery | DX: Z01.810 Encounter for preprocedural cardiovascular examination (principal); K43.9 Ventral hernia without obstruction or gangrene | CPT/HCPCS: 93005; 93010 ==

== ENCOUNTER 2023-02-05 07:07 | Observation (INO) | payer MEDICARE ==
[2023-01-30 08:14] VITALS: BMI 28.1
[2023-02-05] MEDS ORDERED: CEFAZOLIN 2 GM VIAL ONE (07:40)
[2023-02-05] MEDS ORDERED: Sodium Chloride 0.9% 100 ML ONE (07:40)
[2023-02-05] MEDS ORDERED: Lidocaine 1% MPF 2 ML VIAL ONE (07:40)
[2023-02-05] MEDS ORDERED: Lidocaine 1% PF 5 ML VIAL ONE ×2 (07:52→08:58)
[2023-02-05] MEDS ORDERED: fentaNYL PF 100 MCG/2 ML SYRINGE ONE (07:52)
[2023-02-05] MEDS ORDERED: Rocuronium Bromide 10 MG/ML (10ML VIAL) ONE ×2 (07:52→08:58)
[2023-02-05] MEDS ORDERED: PROPOFOL 20 ML ONE (07:52)
[2023-02-05] MEDS ORDERED: Bupivacaine 0.25% HCL 30 ML VIAL ONE (07:57)
[2023-02-05] MEDS ORDERED: EPINEPHrine 1 MG/ML VIAL ONE (07:57)
[2023-02-05] MEDS ORDERED: Ondansetron PF 4 MG/2 ML Vial ONE ×2 (08:58→13:39)
[2023-02-05] MEDS ORDERED: PROPOFOL 200 MG/20 ML VIAL ONE (08:58)
[2023-02-05] MEDS ORDERED: PHENYLEPHRINE-NS 100 MCG/ML 10 ML SYRINGE ONE ×2 (08:58→10:38)
[2023-02-05] MEDS ORDERED: Dexamethasone 20 MG/5 ML VIAL ONE ×2 (08:58→09:11)
[2023-02-05] MEDS ORDERED: ePHEDrine Sulfate 50 MG/10 ML VIAL ONE ×2 (08:58→09:04)
[2023-02-05] MEDS ORDERED: SUGAMMADEX SODIUM 200 MG/2 ML VIAL ONE (12:51)
[2023-02-05] MEDS ORDERED: CEFAZOLIN 1 GM VIAL ONE (12:53)
[2023-02-05] MEDS ORDERED: fentaNYL 50 mcg/mL 1 mL Vial ONE ×2 (13:14→13:33)
[2023-02-05] MEDS ORDERED: Promethazine 25 MG TAB ONE (14:10)
[2023-02-05] MEDS ORDERED: Morphine 2 MG/ML VIAL ONE ×2 (15:06→15:54)
[2023-02-05] MEDS ORDERED: Ondansetron PF 4 MG/2 ML Vial IVP PRN ×2 (16:30→17:53)
[2023-02-05] MEDS ORDERED: hydrALAZINE 20 MG/ML VIAL SLOW IVP PRN (16:30)
[2023-02-05] MEDS ORDERED: Promethazine HCl 25 MG/ML VIAL IM PRN ×2 (16:30→17:53)
[2023-02-05] MEDS ORDERED: Ipratropium/Albuterol 3 ML NEB NEB PRN (16:30)
[2023-02-05] MEDS ORDERED: Dextrose 50% Abboject 50 ML SYRINGE SLOW IVP PRN (16:30)
[2023-02-05] MEDS ORDERED: Glucagon 1 MG/ML KIT IM PRN (16:30)
[2023-02-05] MEDS ORDERED: Furosemide 40 MG TAB PO PRN (16:30)
[2023-02-05] MEDS ORDERED: Dextrose 5% in Water 1,000 ML IV PRN (16:30)
[2023-02-05] MEDS: Sodium Chloride 0.9% 1,000 ML IV SCH (17:23)
[2023-02-05] MEDS ORDERED: diphenhydrAMINE 50 MG/ML VIAL IM PRN (17:53)
[2023-02-05] MEDS ORDERED: Naloxone HCl 0.4 mg/ml Vial IV PRN (17:53)
[2023-02-05] MEDS ORDERED: Morphine CADD 1 MG/ML CADD IVPB PRN (17:53)
[2023-02-05] MEDS ORDERED: diphenhydrAMINE 25 MG CAP PO PRN (17:53)
[2023-02-05] MEDS ORDERED: diphenhydrAMINE 50 MG/ML VIAL IVP PRN (17:53)
[2023-02-05] MEDS ORDERED: Communication Order-Pharmacy FS SCH (18:00)
[2023-02-05] MEDS: Ketorolac Tromethamine 30 MG/ML VIAL IVP SCH (19:18)
[2023-02-05] MEDS: Carvedilol 25 MG TAB PO SCH (21:00)
[2023-02-06] MEDS: Ketorolac Tromethamine 30 MG/ML VIAL IVP SCH ×2 (00:04→05:37)
[2023-02-06] MEDS: Sodium Chloride 0.9% 1,000 ML IV SCH (00:05)
[2023-02-06 07:05] LABS: #Monocytes 1.1 thou/uL (0.11-0.59); #Neutrophils 6.6 thou/uL (1.40-6.50); %Basophils 0.1 % (0.0-1.0); %Lymphocytes 13.9 % (21.0-51.0); %Neutrophils 73.7 % (42.0-75.0); Hematocrit 28.9 % (42.0-52.0); Hemoglobin 9.9 g/dL (14.0-18.0); Mean Corpuscular HGB CONC 34.3 g/dL (32.0-36.0); Mean Corpuscular Hemoglobin 33.3 pg (27.0-31.0); Mean Corpuscular Volume 97.3 fl (78.0-98.0); Mean Platelet Volume 8.7 fL (7.4-10.4); Platelet Count 203 10x3/uL (130-400); RBC Distribution Width 15.1 % (11.5-14.5); Red Blood Cell (RBC) Count 2.97 mill/uL (4.70-6.10)
[2023-02-06 07:17] LABS: Anion Gap 18 mmol/L (10-20); BUN (Urea Nitrogen) 22 mg/dL (8.4-25.7); Calc. Creatinine Clearance 57 mL/min (70-130); Calcium 8.2 mg/dL (7.8-10.44); Carbon Dioxide 19 mmol/L (23-31); Chloride 98 mmol/L (98-107); Estimated GFR 55; Glucose 96 mg/dL (83-110); Potassium 4.3 mmol/L (3.5-5.1); Sodium 131 mmol/L (136-145)
[2023-02-06 08:06] VITALS: TEMP 97.6
[2023-02-06] MEDS ORDERED: Amiodarone 200 MG TAB PO SCH (09:00)
[2023-02-06] MEDS ORDERED: Lisinopril 20 MG TAB PO SCH (09:00)
[2023-02-06] MEDS ORDERED: Atorvastatin Calcium 20 MG TAB PO SCH (09:00)
[2023-02-06] MEDS ORDERED: TESTOSTERONE TD SCH (09:00)
[2023-02-06] MEDS: Carvedilol 25 MG TAB PO SCH (09:12)
[2023-02-06 09:13] VITALS: BP 100/64
== END 2023-02-06 11:40 | disposition home or self-care (01) ==
LOC: SDC 07:07 → SURG B 15:53
PROVIDERS: ADMIT Surgery; ATTEND Surgery
PROC: 0WUF4JZ Supplement Abdominal Wall with Synthetic Substitute, Percutaneous Endoscopic Approach (ICD-10-PCS; principal; 2023-02-05)
DX: K43.2 Incisional hernia without obstruction or gangrene (principal); I10 Essential (primary) hypertension; I25.10 Atherosclerotic heart disease of native coronary artery without angina pectoris
CPT/HCPCS: 49595; 80048; 85025; A4314; C1781; J0360; J3010; 36415; J0171; J0690; J1100; J1885; J2270; J2272; J2405; J2704; J3490; J7050; J7070; Q0169; S0020

== ENCOUNTER 2023-04-30 08:04 | Outpatient (CLI) | payer MEDICARE | END 2023-04-30 08:05 | disposition home or self-care (01) | LOC: CT 08:04 | PROVIDERS: ATTEND Internal Medicine Cardiovascular Disease | DX: R06.02 Shortness of breath (principal); J90 Pleural effusion, not elsewhere classified; J98.11 Atelectasis | CPT/HCPCS: 71275; 74160; 82565 ==